=== PATIENT | female | born 1980 | race Caucasian/White ===

== ENCOUNTER → 2018-03-06 12:23 | Outpatient (CLI) | payer OTHER, BC, SELFPAY ==
--- NOTE | 2018-03-06 12:23 | DT_ITS ---
This patient was seen during an EMR downtime March 02, 2018 - March 09, 2018. This patient may have a combination of paper and electronic documentation or all paper documentation. All documentation is viewable within the e-chart portion of [employer] for each patient visit.
--- NOTE | 2018-03-06 12:36 | MRI_ITS ---
STUDY: MRI BRAIN WITH AND WITHOUT CONTRAST REASON FOR EXAM: Female, 38 years old. VISION DISTURBANCES, C/O SLANTED VISION, HEADACHES, DIZZINESS X 2 MONTHS, DULL ACHE AROUND EYES. TECHNIQUE: Standardized multiplanar fat and water weighted pulse sequences were obtained. 6 ml of Gadavist contrast material was administered intravenously for the contrast portion of the examination. COMPARISON: April 22, 2013 FINDINGS: Again noted is a mild dilatation of the ventricles which is stable in comparison with the prior examination. Normal white matter tracts of the supratentorial brain. Normal bilateral basal ganglia. Normal thalami. There is no extra-axial fluid accumulation. Normal flow voids within the major intracranial circulation suggesting patency by spin echo criteria. Normal venous enhancement. There is no enhancing intra-axial or extra-axial abnormality. Normal sella turcica, pituitary gland, infundibular stalk, optic chiasm and hypothalamus. Normal tectal plate and pineal gland. Normal midbrain, vianey and medulla. Normal cerebellum. Normal basal cisterns. Normal bilateral temporal bones. Normal bilateral internal auditory canals. Normal bilateral globes. Normal bilateral optic nerve sheath complexes and optic nerves. Normal bilateral intraconal and extraconal spaces. Normal bilateral extraocular muscles. Normal optic chiasm and post-chiasmatic tracts. Normal sella turcica, pituitary gland, infundibular stalk, and hypothalamus. Normal bilateral cavernous sinuses. Normal tectal plate and pineal gland. MRI/Brain W/WO Contrast IMPRESSION: Stable mild ventriculomegaly. Electronically Signed: Carina Estrada MD at 12:25 EDT Tel , Service support ,
== END ==
PROVIDERS: Family Provider Student in an Organized Health Care Education/Training Program; PCP Student in an Organized Health Care Education/Training Program; Visit Provider Nurse Practitioner Acute Care
DX: R51 Headache (principal); H53.9 Unspecified visual disturbance
CPT/HCPCS: 70553; A9585

== ENCOUNTER → 2019-08-19 13:42 | Outpatient (CLI) | payer OTHER, BC, SELFPAY ==
--- NOTE | 2019-08-19 13:45 | CT_ITS ---
STUDY: CT ABDOMEN WITHOUT CONTRAST REASON FOR EXAM: Female, 39 years old. RITA-DANLOS SYNDROME. Hypermobility. RADIATION DOSAGE (If Supplied By Facility): CTDIvol = ( 7.45 ) mGy, DLP = ( 225.13 ) mGycm TECHNIQUE: Transaxial images were obtained without intravenous contrast, and without oral contrast. Sagittal and coronal images were reconstructed. Individualized dose optimization techniques were used for this CT. COMPARISON: None. FINDINGS: The visualized lung bases are unremarkable. The visualized portions of the heart are within normal limits. Normal liver. Normal gallbladder and extrahepatic biliary system. Normal spleen. Normal pancreas. Normal bilateral adrenal glands. Normal right kidney. Normal left kidney. Normal visualized stomach. Normal small intestine. Normal colon. There is non-visualization of the appendix. Normal abdominal aorta. Normal inferior vena cava. Normal retroperitoneum. Normal abdominal wall. Normal osseous structures. CT/Abdomen without IV Contrast IMPRESSION: Normal unenhanced CT of the abdomen. Electronically Signed: Rayne Hoover MD at 5:40 EST , Service support ,
--- NOTE | 2019-08-19 13:46 | CT_ITS ---
STUDY: CT CHEST WITHOUT CONTRAST REASON FOR EXAM: Female, 39 years old. RITA-DANLOS SYNDROME. Chest pain. Hypermobility. RADIATION DOSAGE (If Supplied By Facility): CTDIvol = ( 6.57 ) mGy, DLP = ( 229.61 ) mGycm TECHNIQUE: Transaxial imaging was performed without the administration of intravenous contrast material. Multiplanar coronal and sagittal images were reformatted. Individualized dose optimization techniques were used for this CT. COMPARISON: None. FINDINGS: There are scattered mild changes throughout the lung parenchyma within the upper middle and lower lung xiong. Remainder of the lungs are otherwise clear. No nodule, mass or consolidation. There is no demonstrated pleural abnormality. Normal heart and pericardium. Normal mediastinum. Normal hilar regions. Normal unenhanced pulmonary arteries. Normal aorta arch and descending thoracic aorta. Normal osseous structures. There is no demonstrated abnormality of the visualized upper abdomen. CT/Chest without Contrast IMPRESSION: Scattered, mild bullous disease throughout the bilateral lung xiong are otherwise normal unenhanced CT Chest examination. Electronically Signed: Rayne Hoover MD at 5:43 EST , Service support ,
== END ==
PROVIDERS: Family Provider Student in an Organized Health Care Education/Training Program; PCP Student in an Organized Health Care Education/Training Program
DX: Q79.62 Hypermobile Ehlers-Danlos syndrome (principal); R07.9 Chest pain, unspecified
CPT/HCPCS: 71250; 74150

== ENCOUNTER → 2019-08-31 10:41 | Outpatient (CLI) | payer OTHER, BC, SELFPAY ==
--- NOTE | 2019-08-31 10:45 | STEWCON_ITS ---
Reason For Study: CHEST PAIN Stress Results Protocol: Amrit Protocol WITH DEFINITY Maximum Predicted HR: 182 bpm Target HR: 155 bpm % Maximum Predicted HR: 110 % DurationHeart Rate Stage (mm:ss) (bpm) BP Comment BASELINE 97 110/70 STAGE 1 3:00 157 132/70LEGS HEAVY FEELING, FATIGUED STAGE 2 1:25 200 / LEGS UNABLE TO KEEP UP WITH TREADMILL RECOVERY 102 122/804 CC DEFINITY Stress Duration: 4:25 mm:ss Maximum Stress HR: 200 bpm METS: 7 Baseline Echocardiogram Findings Stress Echo Wall motion Data Resting WM Intermediate WM Stress WM Resting Wall Motion Wall Motion Stress All segments Normal. All segments Hyperkinetic. Ejection Fraction 55 %. Ejection Fraction 70 %. Stress Results Heart rate response: Appropriate Blood pressure response to exercise: Normal resting blood pressure-appropriate response Arrhythmias: None Functional capacity: Decreased Stopped secondary to: Leg discomfort. EKG Data The baseline ECG displays normal sinus rhythm. Peak exercise ECG: No obvious ECG changes. Symptoms with Stress No complaint of chest discomfort during exercise or recovery. Interpretation Summary Negative (Adequate) stress echocardiogram Ordering Physician: SLIME CAN Referring Physician: SLIME CAN Performed By: Sheron Jones, ROSA, RVT
== END ==
PROVIDERS: Family Provider Student in an Organized Health Care Education/Training Program; PCP Student in an Organized Health Care Education/Training Program
DX: R07.9 Chest pain, unspecified (principal)
CPT/HCPCS: 93017; 93350; Q9957; A4216; C8928

== ENCOUNTER 2020-10-12 10:53 | Emergency (ER) | payer OTHER, SELFPAY ==
[2020-10-12] VITALS (11 sets, daily range): BP systolic 107–147; BP diastolic 67–93; PULSE 66–86; RESP 12–20; TEMP 36.7; O2SAT 96–100; BMI 23.9
--- NOTE | 2020-10-12 11:09 | EKG12_ITS ---
Test Reason : POSSIBLE STROKE Blood Pressure : / mmHG Vent. Rate : 077 BPM Atrial Rate : 077 BPM P-R Int : 136 ms QRS Dur : 090 ms QT Int : 366 ms P-R-T Axes : 074 071 042 degrees QTc Int : 414 ms Normal sinus rhythm Normal ECG Confirmed by BERNARDO RAE, REBECCA ([id number]), news video editor FLEX OCONNELL ([id number]) on 10/18/2020 6:16:11 AM Referred By: TOMASA Confirmed By:REBECCA CHANG MD
--- NOTE | 2020-10-12 11:09 | CT_ITS ---
STUDY: CT HEAD STROKE PROTOCOL W/O CONTRAST INJECTION REASON FOR EXAM: Female, 40 years old. Neuro deficit, acute stroke suspected, blurred and double vision right eye. RADIATION DOSAGE (If Supplied By Facility): CTDIvol = ( 60.81 ) mGy, DLP = ( 1067.08 ) mGycm TECHNIQUE: Transaxial CT imaging of the brain was performed without administration of intravenous contrast material. Individualized dose optimization techniques were used for this CT. COMPARISON: No relevant priors. FINDINGS: Normal soft tissue structures. Normal calvarium. There is disproportionate enlargement of the lateral and third ventricles, as compared to the extra-axial spaces. The findings suggest normal pressure hydrocephalus (NPH). Normal white matter tracts of the cerebral hemispheres. Normal basal ganglia and thalami. Normal brainstem. Normal cerebellum. There is no intracranial hemorrhage. There are no findings of an acute ischemic infarction. Normal visualized paranasal sinuses. CT/STROKE Brain/Head without Cont IMPRESSION: Disproportionate enlargement of the lateral and third ventricles as compared to the extra-axial spaces. N.B. : The above information has been verbally conveyed by Taiwo Huddleston to Dr Jenny MD, on 10/12/2020 11:26:55 (ET). Electronically Signed: Taiwo Huddleston, at 11:27 EST , Service support ,
--- NOTE | 2020-10-12 11:10 | CM.ED ---
SOCIAL WORK Reason for Consult: Stroke Alert SW responded to Stroke Alert. Patient in CT. No family present at this time. Per nursing, is aware. This worker to remain available for needs. Arelis John, TEA BAG PACKER, GUEST SERVICES AGENT
--- NOTE | 2020-10-12 11:12 | ED.DCSUM_ITS ---
History of Present Illness Chief Complaint: Neuro S/Sx Informant: Patient Quality and Location: Right Face Paresthesia, - - Vision changes right eye Current Severity: Mild Maximum Severity: Mild Narrative: Patient presents secondary to blurred vision out of her right eye. She states while coming to the emergency room she also noted double vision where items appear to be one on top of the other. Patient states she went to bed and felt well at 1030 last night. When she was at 5 AM this morning she noted her vision from her right eye was blurred. She thought she does need to put a new contact in which she did but the vision changes did not improve. Patient does also state that she has slight altered sensation over the right side of her face. She contacted her physician who advised her to come to the emergency room. She does report having a similar episode in March of last year which resolved spontaneously after 24 hours. She did not seek medical attention at that time. 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 Status: Chronic (3) Epilepsy Status: Chronic (4) Sjogren's disease Status: Chronic (5) POTS (postural orthostatic tachycardia syndrome) Status: Chronic Past Medical History - Allergies and Home Meds Allergies/Adverse Reactions: Allergies Iodinated Contrast Media [CONTRASTS] Allergy (Verified 10/12/20 10:54) Unknown amoxicillin [From Augmentin] Adverse Reaction (Verified 10/12/20 10:58) Nausea clavulanic acid [From Augmentin] Adverse Reaction (Verified 10/12/20 10:58) Nausea levetiracetam [From Keppra] Adverse Reaction (Verified 10/12/20 10:58) I COULDN'T STAY AWAKE Primary Care Physician: Bobo Rodriguez DO [Primary Care Provider] - Prior records reviewed: Yes Review of Systems General: Denies: Chills, Fever Eyes: Reports: Visual changes - right Cardiovascular: Denies: Chest pain Respiratory: Denies: Dyspnea, Cough Gastrointestinal: Denies: Abdominal pain, Vomiting, Diarrhea Musculoskeletal: Denies: Swelling, Extremity Pain Skin: Denies: Rash Neurological: Reports: Parasthesia. Denies: Weakness Hematologic: Denies: Easy bruising, Easy bleeding Allergy: Denies: Uticaria STROKE Vital Signs/Narrative: Vital Signs Temp Pulse Resp BP Pulse Ox 10/12/20 10:54 98.1 F 74 15 133/86 H 100 Inital Vital Signs reviewed: Yes General: Well nourished, Well developed Head: Normocephalic Eyes: Perrl, EOMI ENT: Moist mucous membranes Neck: Supple Cardiovascular: Regular rate, Regular rhythm Respiratory: No distress, CTA bilaterally Abdomen: Soft, Nontender Back: Nontender Extremities: Nontender Skin: Normal color, No rash Neurological: Alert, Oriented x3, Parasthesia - Right facial paresthesias Psychological: Normal affect Diagnostic/Tx/Re-eval Impressions Brain CT 10/12/20 11:09 IMPRESSION: Disproportionate enlargement of the lateral and third ventricles as compared to the extra-axial spaces. N.B. : The above information has been verbally conveyed by Taiwo Huddleston to Dr Jenny MD, on 10/12/2020 11:26:55 (ET). Electronically Signed: Taiwo Huddleston, at 11:27 EST , Service support , ADDENDUM: 10/12/20 1134 IMPRESSION: Disproportionate enlargement of the lateral and third ventricles as compared to the extra-axial spaces. N.B. : The above information has been verbally conveyed by Taiwo Huddleston to Dr Jenny MD, on 10/12/2020 11:26:55 (ET). Electronically Signed: Taiwo Huddleston, at 11:27 EST , Service support , Brain MRI 10/12/20 11:31 IMPRESSION: Suspect normal pressure hydrocephalus. Electronically Signed: Gómez Guzman MD at 16:15 EST Tel , Service support , Head MRA 10/12/20 11:32 IMPRESSION: Normal MRA of the head Electronically Signed: Gómez Guzman MD at 16:17 EST Tel , Service support , Neck MRA 10/12/20 11:32 IMPRESSION: Normal bilateral cervical carotid and vertebral arteries. Electronically Signed: Gómez Guzman MD at 16:17 EST Tel , Service support , Chest X-Ray 10/12/20 11:45 IMPRESSION: Normal x-ray examination of the chest. Electronically Signed: Taiwo Flaquito, at 12:18 EST , Service support , 10/12/20 11:09 STROKE Brain/Head without Cont [CT] Stat 10/12/20 11:31 MRI Brain [Brain without Contrast] [MRI] Stat 10/12/20 11:32 MRA Head ONLY without Contrast [MRI] Stat MRA Neck WITH and W/O Contrast [MRI] Stat 10/12/20 11:45 Chest 1 View [RAD] Stat Laboratory Results 10/12/20 10/12/20 10/12/20 11:00 11:00 11:00 WBC 8.6 RBC 4.53 Hgb 11.5 L Hct 36.9 L MCV 81.5 MCH 25.4 L MCHC 31.2 L RDW Std Deviation 41.4 RDW Coeff of Giovanna 14.2 Plt Count 356 MPV 10.9 Immature Gran % (Auto) 0.200 Neut % (Auto) 64.9 Lymph % (Auto) 27.6 [place] % (Auto) 6.4 Eos % (Auto) 0.7 Baso % (Auto) 0.2 Absolute Neuts (auto) 5.6 Absolute Lymphs (auto) 2.38 Nucleated RBC % 0 PT 12.8 INR 1.0 APTT 27.0 Sodium 140 Potassium 3.5 Chloride 107 Carbon Dioxide 27.0 Anion Gap 6 BUN 8 Creatinine 0.76 Estim Creat Clear Calc 82.21 Est GFR (MDRD) Af Amer 109 Est GFR (MDRD) Non-Af 90 BUN/Creatinine Ratio 10.6 Glucose 94 Calcium 9.0 Troponin I < 0.015 POC Glucose 10/12/20 11:22 WBC RBC Hgb Hct MCV MCH MCHC RDW Std Deviation RDW Coeff of Giovanna Plt Count MPV Immature Gran % (Auto) Neut % (Auto) Lymph % (Auto) [place] % (Auto) Eos % (Auto) Baso % (Auto) Absolute Neuts (auto) Absolute Lymphs (auto) Nucleated RBC % PT INR APTT Sodium Potassium Chloride Carbon Dioxide Anion Gap BUN Creatinine Estim Creat Clear Calc Est GFR (MDRD) Af Amer Est GFR (MDRD) Non-Af BUN/Creatinine Ratio Glucose Calcium Troponin I POC Glucose 80 Chest X-Ray - ED: 1 View, Read by ED Physician, - - Hyperinflation - EKG Initial EKG Interpretation: Sinus Rhythm - NS at 77 with no acute ischemia. - Medical Decision Making Stroke Team Activated: Yes Patient had both vision complaints in the right eye as well as paresthesias to the right face. In light of this stroke team was initiated. I spoke with the radiologist on the robot. She suggested obtaining MRI if at all possible to rule out stroke and if that was unremarkable patient should be seen by ophthalmology. Patient does have allergy to IV CT contrast which causes her throat to swell, but has tolerated MRI contrast in the past without difficulty. In light of this MRI brain as well as MRA brain and neck are obtained. The s tudies are all unremarkable. On repeat evaluation patient is resting comfortably. She still feels that her vision from the right eye is not back to baseline. She denies double vision at this time. I spoke with Dr. Amador, on- call for ophthalmology. Without pain or redness of the right eye, patient does not need to be seen emergently tonight. He will see her in the office tomorrow. If the patient gets any worsening symptoms overnight she is to call Dr. Amador and she voices understanding and agreement. ED Disposition - Plan for ED Patient: Disposition: Home or Assisted Living Diagnosis: Changes in vision Instructions: ED Blurred Vision Referrals: Sravan Amador MD [STAFF PHYSICIAN] - 1 Day
--- NOTE | 2020-10-12 11:14 | NURSING ---
1110 STROKE ALERT CALLED
[2020-10-12 11:26] LABS: Bedside Glucose 80 mg/dL (70-110)
--- NOTE | 2020-10-12 11:31 | MRI_ITS ---
STUDY: MRI BRAIN WITHOUT CONTRAST REASON FOR EXAM: Female, 40 years old. R eye double vision, blurred vision, right eye vision changes, paresthesias TECHNIQUE: Standardized multiplanar fat and water weighted pulse sequences were obtained. COMPARISON: CT earlier today, MRI 03/06/2018 FINDINGS: There is disproportionate ventricular enlargement with prominence of the anterior horns and temporal tips of the bilateral lateral ventricles. There is thinning with bowing of the corpus callosum. There is moderate enlargement of the third ventricle. The findings are suggestive of normal pressure hydrocephalus (NPH). Normal white matter tracts of the supratentorial brain. There is no evidence for recent intracranial ischemia or other cause of cytotoxic edema on diffusion weighted imaging (DWI). Normal T2* images of the brain without demonstrated susceptibility artifact. There is no demonstrated hemosiderin stain. Normal bilateral basal ganglia. Normal thalami. There is no extra-axial fluid accumulation. Normal flow voids within the major intracranial circulation suggesting patency by spin echo criteria. Normal sella turcica, pituitary gland, infundibular stalk, optic chiasm and hypothalamus. Normal tectal plate and pineal gland. Normal midbrain, vianey and medulla. Normal cerebellum. Normal basal cisterns. Normal bilateral temporal bones. Normal bilateral internal auditory canals. No demonstrated orbital abnormality, within the constraints of a routine brain study. Normal visualized paranasal sinuses. Normal calvarium and skull base. Normal visualized soft tissue structures. Normal visualized upper cervical spine. MRI/Brain without Contrast IMPRESSION: Suspect normal pressure hydrocephalus. Electronically Signed: Gómez Guzman MD at 16:15 EST Tel , Service support ,
--- NOTE | 2020-10-12 11:32 | MRI_ITS ---
STUDY: MRA NECK WITH AND WITHOUT CONTRAST REASON FOR EXAM: Female, 40 years old. R eye double vision, blurred vision, right eye vision changes, paresthesias TECHNIQUE: 3-D ltde-lg-bauxdo (TOF) imaging was performed in an 1.5 T MRI scanner. 12CC IV DOTAREM was administered for the contrast enhanced images. COMPARISON: None. FINDINGS: RIGHT CAROTID ARTERIES: Normal right common carotid artery (CCA). Normal right common carotid bulb. Normal origin of the right internal carotid (ICA) artery without a hemodynamically significant stenosis. Normal visualized cervical portion of the right internal carotid artery. Normal origin of the right external carotid artery (ECA). LEFT CAROTID ARTERIES: Normal left common carotid artery (CCA). Normal left common carotid bulb. Normal origin of the left internal carotid (ICA) artery without a hemodynamically significant stenosis. Normal visualized cervical portion of the left internal carotid artery. Normal origin of the left external carotid artery (ECA). VERTEBRAL ARTERIES: Normal antegrade flow within the bilateral vertebral artery without a hemodynamically significant stenosis. MRI/MRA Neck WITH and W/O Contrast IMPRESSION: Normal bilateral cervical carotid and vertebral arteries. Electronically Signed: Gómez Guzman MD at 16:17 EST Tel , Service support ,
--- NOTE | 2020-10-12 11:32 | MRI_ITS ---
STUDY: MRA OF THE HEAD WITHOUT CONTRAST REASON FOR EXAM: Female, 40 years old. right eye vision changes, paresthesias TECHNIQUE: 3-D nsjx-ez-ssmafo (TOF) imaging was performed with MIPs. The study was performed unenhanced. COMPARISON: None. FINDINGS: Normal bilateral petrous carotid arteries. Normal right cavernous carotid artery with a normal supraclinoid bifurcation. Normal left cavernous carotid artery with a normal supraclinoid bifurcation. Normal right A1 segments of the anterior cerebral artery. Normal left A1 segments of the anterior cerebral artery. Normal intact anterior communicating artery (ACOM). Normal bilateral A2 segments of the anterior cerebral arteries. Normal right M1 and M2 segments of the middle cerebral arteries, with a normal M1 bifurcation. Normal left M1 and M2 segments of the middle cerebral arteries, with a normal M1 bifurcation. Normal right posterior communicating artery (PCOM). Normal left posterior communicating artery (PCOM). Normal bilateral vertebral arteries. Normal basilar artery with a normal basilar bifurcation. The visualized bilateral superior cerebellar (SCA) arteries are normal. Normal bilateral P1, P2 and visualized P3 segments of the posterior cerebral arteries. There is no demonstrated aneurysm of the [place]. There is no major vessel occlusion or hemodynamically significant stenosis. There is no demonstrated abnormality of the visualized brain. MRI/MRA Head ONLY without Contrast IMPRESSION: Normal MRA of the head Electronically Signed: Gómez Guzman MD at 16:17 EST Tel , Service support ,
[2020-10-12 11:39] LABS: Absolute Lymphocyte Count 2.38 X10^3/uL (0.83-4.51); Absolute Neutrophil Count 5.6 X10^3/uL (2.0-7.7); Basophil# 0.02 X10^3/uL; Basophil% 0.2 % (0-1); Eosinophil# 0.06 X10^3/uL; Eosinophils% 0.7 % (0-5); Hematocrit 36.9 % (37-47); Hemoglobin 11.5 g/dL (12.0-15.0); Lymphocyte # 2.38 X10^3/ul (4.0); Lymphocyte % 27.6 % (19-41); Mean Corp Hgb Conc 31.2 g/dL (32-36); Mean Corpuscular Hgb 25.4 pg (27.0-32.0); Mean Corpuscular Volume 81.5 fL (81-99); Mean Platelet Vol. 10.9 fl (6.2-12.0); Monocyte# 0.55 X10^3/uL; Monocyte% 6.4 % (0-10); NRBC Flagged by Analyzer 0 % (0-5); Neutrophil # 5.59 X10^3/uL (2.7-7.7); Neutrophil % 64.9 % (47-70); Platelet Count 356 K/mm3 (150-450); RBC Distribution Width CV 14.2 % (11.6-14.6); RBC Distribution Width SD 41.4 fl (35.1-43.9); Red Blood Count 4.53 M/mm3 (4.2-5.4); White Blood Count 8.6 K/mm3 (4.4-11.0)
--- NOTE | 2020-10-12 11:45 | RAD_ITS ---
STUDY: X-RAY CHEST REASON FOR EXAM: Female, 40 years old. SUSPECTED STROKE, BLURRED AND DOUBLED VISION IN RIGHT EYE. TECHNIQUE: Single AP portable view of the chest. COMPARISON: Comparison is made with prior study 05/18/2014. FINDINGS: EKG electrodes are seen. Hyperinflation. The lungs are clear. There is no demonstrated pleural abnormality. Normal size heart. Normal mediastinum and gricelda. Normal visualized pulmonary arteries. Normal visualized aortic arch and descending thoracic aorta. Normal visualized thoracic spine. Normal visualized ribs, clavicles, and shoulders. There is no demonstrated abnormality of the visualized soft tissue structures of the upper abdomen. RAD/Chest 1 View IMPRESSION: Normal x-ray examination of the chest. Electronically Signed: Taiwo Huddleston, at 12:18 EST , Service support ,
[2020-10-12 11:48] LABS: Prothrombin Time (Protime)PT. 12.8 SECONDS (11.7-14.9)
[2020-10-12 11:53] LABS: Anion Gap 6 (5-15); BUN 8 mg/dL (7-18); BUN/Creat Ratio 10.6 RATIO (10-20); Chloride 107 mmol/L (98-107); Creatinine, Serum 0.76 mg/dL (0.55-1.02); EST Glomerular Filtration Rate 90 mL/min (>60); Est Glom Filt Rate - Afr Amer 109 mL/min (>60); Estimated Creatinine Clearance 82.21 ml/min; Glucose 94 mg/dL (74-106); Potassium 3.5 mmol/L (3.5-5.1); Sodium Level 140 mmol/L (136-145)
== END 2020-10-12 17:05 | disposition home or self-care (01) ==
PROVIDERS: Emergency Provider Emergency Medicine; PCP Student in an Organized Health Care Education/Training Program
DX: R29.818 Other symptoms and signs involving the nervous system (principal); G40.909 Epilepsy, unspecified, not intractable, without status epilepticus
CPT/HCPCS: 70450; 70544; 70549; 70551; 71045; 80048; 82962; 84484; 85025; 85610; 85730; 93005; 99284; A9575; A4216

== ENCOUNTER 2021-06-06 07:07 | Emergency (ER) | payer OTHER, SELFPAY ==
[2021-06-06 07:07] VITALS: BP 94/70; PULSE 100; RESP 16; TEMP 36.6; O2SAT 99; BMI 22.8
[2021-06-06 07:10] VITALS: BP 94/70; PULSE 100; RESP 16; TEMP 36.6; O2SAT 99
--- NOTE | 2021-06-06 07:25 | EX.ED.VIS.UR ---
HPI HPI - URI History of Present Illness Chief Complaint: Weakness Informant: patient Onset/Context/Timing Onset: Days Context: Gradual Onset Timing: Continuous Current Severity: Mild Maximum Severity: Mild Associated Symptoms Associated Symptoms: Positive for Myalgias, Nausea, Vomiting, Diarrhea and Nonproductive cough Narrative Narrative: 41-year-old female past medical history of seizure disorder, hydrocephalus and POTS. Patient thinks he may have coronavirus was tested there and it is not the results back yet. On Friday she started with congestion and nonproductive cough. Body aches. Subjective fever and chills. In the last 2 to 3 days has developed nausea, vomiting and diarrhea. Has had 4 episodes of diarrhea last 24 hours. Nausea and vomiting x2. No hematemesis no melena. No dysuria. No abdominal pain. Prior similar symptoms: No Recent Illness/Hospitalization: No ROS ROS ED ROS Narrative Nausea, vomiting and diarrhea. Myalgias. Cough. Subjective fever and chills. Review of Systems ROS Unobtainable: Denies due to encephalopathy Constitutional Constitutional ED: Reports chills, fever(s) and subjective Eyes Eyes: Denies change in vision ENT ENT ED: Denies ear pain or sore throat Cardiovascular Cardiovascular: Denies chest pain Respiratory/Chest Respiratory/Chest: Reports cough; Denies dyspnea Gastrointestinal Gastrointestinal: Reports diarrhea, nausea and vomiting; Denies abdominal pain Genitourinary Genitourinary ED: Denies dysuria or hematuria Musculoskeletal Musculoskeletal: Reports arthralgias and myalgias Integumentary Denies rash Neurologic Neurologic: Denies headache(s) Psychiatric Psychiatric: Denies depression Endocrine Endocrinology: Denies polyuria Hematologic/Lymphatic Hematologic/Lymphatic: Denies easy bruising Allergic/Immunologic Allergic/Immunologic ED: Denies urticaria [facility] Medical History Normal pressure hydrocephalus (10/12/20) Home Medications atenolol 25 mg PO DAILY 10/12/20 [History Last Taken Unknown] clonazepam 2 mg PO QHS 10/12/20 [History Last Taken Unknown] lamotrigine 50 mg PO BID 10/12/20 [History Last Taken Unknown] dexamethasone [Decadron] 6 mg PO DAILY 7 Days #7 tab 06/06/21 [Rx Last Taken Unknown] ondansetron 4 mg PO TID PRN 4 Days tab 06/06/21 [Rx Last Taken Unknown] Allergy/AdvReac Type Severity Reaction Status Date / Time acetazolamide Allergy unknown Verified 06/06/21 07:10 Iodinated Contrast Media Allergy Unknown Verified 06/06/21 07:10 [CONTRASTS] amoxicillin [From Augmentin] AdvReac Nausea Verified 06/06/21 07:10 carbamazepine [From Tegretol] AdvReac unknown Verified 06/06/21 07:10 clavulanic acid AdvReac Nausea Verified 06/06/21 07:10 [From Augmentin] levetiracetam [From Keppra] AdvReac I Verified 06/06/21 07:10 COULDN'T STAY AWAKE Family History Mother Cancer cervical Father Hypertension Sister Cancer cervical Grandmother Cancer maternal ovarian cancer Social History Smoking Status: Former smoker EXAM Physical Exam Narrative Exam Narrative: Middle-aged female clinically looks like she does not feel well. Does not look septic. Her initial blood pressure is low at 94/70. Heart rate 100. Pulse ox 90% on room air no signs hypoxia. H EENT exam dry mucous memories. Neck nontender no lymphadenopathy. Lungs clear to auscultation bilaterally. Heart regular rhythm no murmur. Rate about 100. Abdomen soft nontender normal bowel sounds no peritoneal signs. Moving all 4 extremities. No edema. Skin unremarkable no rashes back nontender. Neurologically awake and alert with no focal motor deficits. Const Vital Signs: 06/06/21 07:07 06/06/21 07:10 06/06/21 07:58 Temperature 98 F 98 F Temperature Source Temporal Temporal Pulse Rate 100 100 Respiratory Rate 16 16 Respiratory Effort Normal Non-Labored Respiratory Pattern Normal Blood Pressure 94/70 94/70 Blood Pressure Mean 78 78 Pulse Ox 99 99 Oxygen Delivery Method Room Air Room Air Positive well nourished and well developed; Negative for obese, cachectic or contractures General Appearance ED: well developed and NAD; Negative for cachectic, contractures, cyanotic, diaphoretic or pallor Nutritional Appearance: Negative for cachectic or obese HEENT Reports dry mucous membranes normocephalic and atraumatic External Ear: external ears normal Mouth ED: Yes dry mucous membranes Mouth: dry mucous membranes Eyes PERRL and EOMs intact bilaterally Neck no lymphadenopathy, supple, no meningeal signs and no JVD General: Negative for anterior neck swelling Resp normal respiratory effort and clear to auscultation bilaterally Auscultation: Negative for rales, rhonchi or wheezes Cardio S1 normal heart sound, S2 normal heart sound and no murmurs Rate: regular rate Rhythm: regular rhythm GI non-tender, non-distended and no masses Auscultation: normoactive bowel sounds; Negative for hyperactive bowel sounds or hypoactive bowel sounds Palpation: soft; Negative for tender or guarding Back/Spine no CVA tenderness and normal ROM General Back: Negative for CVA tenderness Cervical Spine: Negative for cervical spine tenderness Extremity normal to inspection and full ROM General Extremety ED: Negative for cyanosis General Extremity: Negative for cyanosis Neuro oriented x3 and CN's II-XII intact bilaterally Sensorium / Orientation: alert, oriented to person, oriented to place, oriented to time and stuporous; Negative for orientation impaired or lethargic Motor Exam: strength 5/5 throughout Psych mental status grossly normal Skin General Skin Exam: Negative for jaundice or pallor Lesions: no lesions Rashes: no rashes MDM MDM MDM Narrative Medical decision making narrative: 41-year-old female suspect coronavirus. Will be treated with IV fluids, Zofran and Toradol for body aches. Screening labs and chest x-ray to be obtained. Clinically she is hypotensive and will be treated with fluids for dehydration. Repeat exam patient doing well at 9:50 AM and will be discharged home. We went over all of her test results. Prescription for Zofran as needed for nausea. Lab Data Attestation: I reviewed the patient's lab results. Lab results narrative: CBC White count of 3. Hemoglobin 11.5. Electrolytes normal gap 4 creatinine 0.7 glucose 96. Portable single view chest x-ray interpreted both by myself and the radiologist shows no acute abnormality. Normal cardiac silhouette. No infiltrate. Labs: Laboratory Results - last 24 hr 06/06/21 06/06/21 07:50 07:50 WBC 3.1 L RBC 4.61 Hgb 11.5 L Hct 36.7 L MCV 79.6 L MCH 24.9 L MCHC 31.3 L RDW Std Deviation 41.1 RDW Coeff of Giovanna 14.3 Plt Count 159 MPV 10.6 Immature Gran % (Auto) 0.700 Neut % (Auto) 67.2 Lymph % (Auto) 27.2 [place] % (Auto) 4.9 Eos % (Auto) 0.0 Baso % (Auto) 0.0 Absolute Neuts (auto) 2.1 Absolute Lymphs (auto) 0.83 Nucleated RBC % 0 Sodium 138 Potassium 3.7 Chloride 106 Carbon Dioxide 28.0 Anion Gap 4 L BUN 8 Creatinine 0.74 Estim Creat Clear Calc 79.93 Est GFR (MDRD) Af Amer 111 Est GFR (MDRD) Non-Af 92 BUN/Creatinine Ratio 10.8 Glucose 96 Calcium 8.2 L Radiography Diagnostic Testing: Radiology Impression Chest X-Ray 06/06/21 08:10 IMPRESSION: Hyperinflation. The lungs are clear. Electronically Signed: Taiwo Huddleston MD at 8:28 EDT , Service support , Chest x-ray portable 1 view interpreted both by myself and radiologist shows no acute abnormality. Normal cardiac silhouette. No infiltrates. Discharge Plan Triage Chief Complaint: Weakness ED Provider: Eric Hardin Dx/Rx/DC Orders Clinical Impression: COVID-19 Instructions: Human Coronaviruses Prescriptions: New ondansetron 4 mg tablet,disintegrating 4 mg PO TID PRN (Reason: nausea and vomiting) 4 Days RF: 0 dexamethasone [Decadron] 6 mg tablet 6 mg PO DAILY 7 Days Qty: 7 RF: 0 No Action lamotrigine 100 MG tablet 50 mg PO BID RF: 0 atenolol 25 MG tablet 25 mg PO DAILY RF: 0 clonazepam 2 MG tablet 2 mg PO QHS RF: 0 Primary Care Provider: Bobo Rodriguez Referrals: Bobo Rodriguez DO [Primary Care Provider] - 1 Week if not improving Activity Restrictions/Additional Instructions: Plenty of fluids and rest. Tylenol and Motrin for fever. Zofran as needed for nausea you may swallowed or let dissolve underneath your tongue. If you start having wheezing, cough or shortness of breath start using the Decadron which is a steroid once a day. Follow-up with your doctor if you are not improving. Return to emergency department if you get a lot worse. Quarantine through next Friday. Disposition Disposition: Home, Self Care
[2021-06-06] MEDS: Ketorolac 30 MG/ML Syringe IV (07:50)
[2021-06-06] MEDS: 0.9% Normal Saline 1,000 ML 1000 ML IV (07:51)
[2021-06-06] MEDS: Ondansetron 4 MG/2 ML Vial IV (07:51)
--- NOTE | 2021-06-06 08:10 | RAD_ITS ---
STUDY: X-RAY CHEST REASON FOR EXAM: Female, 41 years old. Cough TECHNIQUE: Single AP portable view of the chest. COMPARISON: Comparison is made with prior study dated 10/12/2020. FINDINGS: Hyperinflation. The lungs are clear. There is no demonstrated pleural abnormality. Normal size heart. Normal mediastinum and gricelda. Normal visualized pulmonary arteries. Normal visualized aortic arch and descending thoracic aorta. Normal visualized thoracic spine. Normal visualized ribs, clavicles, and shoulders. There is no demonstrated abnormality of the visualized soft tissue structures of the upper abdomen. RAD/Chest 1 View (Portable) IMPRESSION: Hyperinflation. The lungs are clear. Electronically Signed: Taiwo Huddleston MD at 8:28 EDT , Service support ,
[2021-06-06 08:12] LABS: Absolute Lymphocyte Count 0.83 X10^3/uL (0.83-4.51); Absolute Neutrophil Count 2.1 X10^3/uL (2.0-7.7); Hematocrit 36.7 % (37-47); Hemoglobin 11.5 g/dL (12.0-15.0); Lymphocyte # 0.83 X10^3/ul (0.83-4.51); Lymphocyte % 27.2 % (19-41); Mean Corp Hgb Conc 31.3 g/dL (32-36); Mean Corpuscular Hgb 24.9 pg (27.0-32.0); Mean Corpuscular Volume 79.6 fL (81-99); Mean Platelet Vol. 10.6 fl (6.2-12.0); Monocyte# 0.15 X10^3/uL; Monocyte% 4.9 % (0-10); NRBC Flagged by Analyzer 0 % (0-5); Neutrophil # 2.05 X10^3/uL (2.7-7.7); Neutrophil % 67.2 % (47-70); Platelet Count 159 K/mm3 (150-450); RBC Distribution Width CV 14.3 % (11.6-14.6); RBC Distribution Width SD 41.1 fl (35.1-43.9); Red Blood Count 4.61 M/mm3 (4.2-5.4); White Blood Count 3.1 K/mm3 (4.4-11.0)
[2021-06-06 08:21] LABS: Anion Gap 4 (5-15); BUN 8 mg/dL (7-18); BUN/Creat Ratio 10.8 RATIO (10-20); Calcium,Total 8.2 mg/dL (8.5-10.1); Chloride 106 mmol/L (98-107); Creatinine, Serum 0.74 mg/dL (0.55-1.02); EST Glomerular Filtration Rate 92 mL/min (>60); Est Glom Filt Rate - Afr Amer 111 mL/min (>60); Estimated Creatinine Clearance 79.93 ml/min; Glucose 96 mg/dL (74-106); Potassium 3.7 mmol/L (3.5-5.1); Sodium Level 138 mmol/L (136-145)
[2021-06-06 10:40] VITALS: BP 114/80; PULSE 73; RESP 16; TEMP 37.1; O2SAT 97
== END 2021-06-06 10:41 | disposition home or self-care (01) ==
PROVIDERS: Emergency Provider Emergency Medicine; PCP Student in an Organized Health Care Education/Training Program
DX: U07.1 COVID-19 (principal); G40.909 Epilepsy, unspecified, not intractable, without status epilepticus; Z87.891 Personal history of nicotine dependence; Z79.899 Other long term (current) drug therapy
CPT/HCPCS: 71045; 80048; 85025; 87426; 96361; 96374; 96375; 99283; J7030; A4216; J2405

== ENCOUNTER → 2022-09-05 | Outpatient (CLI) | payer OTHER, BC, SELFPAY ==
[2022-09-05 09:31] LABS: Absolute Lymphocyte Count 2.56 X10^3/uL (0.83-4.51); Absolute Neutrophil Count 2.7 X10^3/uL (2.0-7.7); Basophil# 0.02 X10^3/uL; Basophil% 0.3 % (0-1); Eosinophil# 0.02 X10^3/uL; Eosinophils% 0.3 % (0-5); Hematocrit 37.5 % (37-47); Hemoglobin 11.6 g/dL (12.0-15.0); Lymphocyte # 2.56 X10^3/ul (0.83-4.51); Lymphocyte % 44.3 % (19-41); Mean Corp Hgb Conc 30.9 g/dL (32-36); Mean Corpuscular Hgb 25.7 pg (27.0-32.0); Mean Corpuscular Volume 83.1 fL (81-99); Mean Platelet Vol. 10.8 fl (6.2-12.0); Monocyte# 0.45 X10^3/uL; Monocyte% 7.8 % (0-10); NRBC Flagged by Analyzer 0 % (0-5); Neutrophil # 2.72 X10^3/uL (2.7-7.7); Neutrophil % 47.1 % (47-70); Platelet Count 366 K/mm3 (150-450); RBC Distribution Width SD 44.8 fl (35.1-43.9); Red Blood Count 4.51 M/mm3 (4.2-5.4); White Blood Count 5.8 K/mm3 (4.4-11.0)
[2022-09-05 09:48] LABS: Vitamin D,25 Hydroxy 17.8 ng/mL
[2022-09-05 09:49] LABS: BNP,B-Type NATRIURETIC PEPTIDE 54.4 pg/mL (0-100)
[2022-09-05 09:54] LABS: Anion Gap 7 (5-15); BUN 7 mg/dL (7-18); BUN/Creat Ratio 10.8 RATIO (10-20); Calcium,Total 8.9 mg/dL (8.5-10.1); Chloride 104 mmol/L (98-107); Creatinine, Serum 0.65 mg/dL (0.55-1.02); EST Glomerular Filtration Rate 107 mL/min (>60); Est Glom Filt Rate - Afr Amer 129 mL/min (>60); Glucose 82 mg/dL (74-106); Potassium 3.6 mmol/L (3.5-5.1); Sodium Level 139 mmol/L (136-145); Thyroid Stim Hormone (TSH) 2.04 uIU/mL (0.358-3.74)
== END | disposition home or self-care (01) ==
LOC: LAB 08:46
PROVIDERS: PCP Student in an Organized Health Care Education/Training Program; Referring Provider Nurse Practitioner Gerontology; Visit Provider Nurse Practitioner Gerontology
DX: R06.09 Other forms of dyspnea (principal); R53.83 Other fatigue
CPT/HCPCS: 36415; 80048; 82306; 83880; 84443; 85025

== ENCOUNTER → 2022-09-12 | Outpatient (CLI) | payer OTHER, BC, SELFPAY ==
--- NOTE | 2022-09-12 08:51 | ECHOD_ITS ---
Reason For Study: DYSPNEA/SOB Procedure This was a 2D Doppler, Color Flow transthoracic echocardiogram. Exam performed in department. Left Ventricle Normal LV size. Left ventricular systolic function is normal. The estimated ejection fraction is 55 %. No regional wall motion abnormalities noted. Right Ventricle Normal RV size. Normal systolic function. Atria Normal left atrium. Normal right atrium. Patent foramen ovale. Mitral Valve Normal mitral valve. Tricuspid Valve Normal tricuspid valve. Aortic Valve Normal aortic valve. Trisinus/trileaflet aortic valve. Pulmonic Valve Normal pulmonic valve. Great Vessels Normal aortic root. The pulmonary artery is normal size. Normal inferior vena cava. Pericardium/Pleural No pericardial effusion. Medication 22 gauge I.V. with prn adaptor inserted into right arm. Performed a rapid injection of agitated mix of 9 cc saline and 1cc air to assess for atrial septal defect. MMode/2D Measurements & Calculations LVIDd: 4.4 cm IVSd: 0.68 cm Ao root diam: 2.9 cm LVIDs: 3.0 cm LVPWd: 0.69 cm RVDd: 2.7 cm FS: 31.9 % LAV(MOD-bp): 28.6 ml LVAd ap4: 23.0 cm2 SV(MOD-sp4): 39.6 ml LAV(MOD-bp) Indexed: 17.5 ml/m2 LVLd ap4: 6.8 cm LAV(MOD-sp2): 27.6 ml EDV(MOD-sp4): 64.1 ml LAV(MOD-sp4): 28.7 ml EDV(sp4-el): 66.3 ml LVAs ap4: 12.7 cm2 LVLs ap4: 5.6 cm ESV(MOD-sp4): 24.5 ml ESV(sp4-el): 24.3 ml EF(MOD-sp4): 61.8 % EF(sp4-el): 63.4 % SV(sp4-el): 42.0 ml LA A4 area: 13.2 cm2 LA dimension(2D): 2.7 cm RA A4 area: 12.1 cm2 Time Measurements MV dec time: 0.25 sec Doppler Measurements & Calculations MV E max derik: 85.2 cm/sec Lat Peak E' Derik: 21.2 cm/sec Med Peak E' Derik: 12.7 cm/sec MV A max derik: 58.7 cm/sec E/E' lat: 4.0 E/E' med: 6.7 MV E/A: 1.5 Ao V2 max: 127.5 cm/sec LV V1 max: 110.4 cm/sec PA V2 max: 93.1 cm/sec Ao max P.5 mmHg LV V1 max P.9 mmHg TR max derik: 211.3 cm/sec TR max P.0 mmHg ECHO/Echo Complete Interpretation Summary Normal LV size. Left ventricular systolic function is normal. The estimated ejection fraction is 55 %. Patent foramen ovale. Structurally normal valves. Ordering Physician: Holley Gorman Referring Physician: JORGITO ESCOBAR Performed By: Cheryle Park RDCS
== END | disposition home or self-care (01) ==
LOC: CVS 08:50
PROVIDERS: PCP Student in an Organized Health Care Education/Training Program; Referring Provider Nurse Practitioner Gerontology; Visit Provider Nurse Practitioner Gerontology
DX: R06.09 Other forms of dyspnea (principal); R06.02 Shortness of breath; I49.8 Other specified cardiac arrhythmias; Q79.60 Ehlers-Danlos syndrome, unspecified
CPT/HCPCS: 93306; A4216

== ENCOUNTER → 2023-12-12 | Outpatient (CLI) | payer OTHER, BC, SELFPAY ==
--- OUTSIDE RECORDS SUMMARY | 2023-12-12 20:05 | XMS RPT_ITS | CCD ---
Author Name Unknown Address [id number] [place] [address] Organization [facility] Care Team Providers Care Desktop Support Specialist Name Role Phone Shazia Mann Unavailable Unavailable Cinthia Ortega Unavailable Unavailable Bobo Rodriguez Unavailable Unavailable Kendy Booker Unavailable Unavailable SELF, SELF Referring Unavailable Bobo Rodriguez DO Primary Care Provider Nicola Novak MD, William J Unavailable Bobo Rodriguez DO Primary Care Provider Nicola Novak MD, William J Unavailable Bobo Rodriguez DO Primary Care Provider Nicola Novak MD, William J Unavailable EMI WARNER Referring Unavailable BOBO RODRIGUEZ Primary Care Unavailable MARYANNE LEDEZMA Admitting Unavailable MARYANNE LEDEZMA Attending Unavailable VIJAY PETERSEN JR Attending Unavailable BOBO RODRIGUEZ Primary Care Unavailable VIJAY PETERSEN JR Referring Unavailable BOBO RODRIGUEZ Primary Care Unavailable MUSHTAQ REHMAN A Referring Unavailable BOBO RODRIGUEZ Primary Care Unavailable BERENICE SHELL Referring Unavailable BOBO RODRIGUEZ Primary Care Unavailable NIDIA, SANDI Referring Unavailable BOBO RODRIGUEZ Primary Care Unavailable ALEXANDER, SANDI Referring Unavailable BOBO RODRIGUEZ Primary Care Unavailable MASCI, MUSHTAQ A Referring Unavailable MICHAEL BOBO L Primary Care Unavailable KRISTYN REHMAN Referring Unavailable BOBO RODRIGUEZ Primary Care Unavailable MASCI, MUSHTAQ A Referring Unavailable ALE JACOBSON Attending Unavailable RODRIGUEZ, BOBO L Primary Care Unavailable RODRIGUEZ, BOBO L Primary Care Unavailable MASCI, MUSHTAQ A Referring Unavailable RODRIGUEZ, BOBO L Primary Care Unavailable RODRIGUEZ, BOBO L Primary Care Unavailable MASCI, MUSHTAQ A Referring Unavailable RODRIGUEZ, BOBO L Primary Care Unavailable MASCI, MUSHTAQ A Attending Unavailable MASCI, MUSHTAQ A Referring Unavailable RODRIGUEZ, BOBO L Primary Care Unavailable Mei Warner Attending Unavailable MASCI, MUSHTAQ A Referring Unavailable RODRIGUEZ, BOBO L Primary Care Unavailable AARONI, MUSHTAQ A Referring Unavailable RODRIGUEZ, BOBO L Primary Care Unavailable RODRIGUEZ, BOBO L Primary Care Unavailable MASCI, MUSHTAQ A Referring Unavailable VIJAY PETERSEN JR Referring Unavailable VIJAY PETERSEN JR Attending Unavailable RODRIGUEZ, BOBO L Primary Care Unavailable Allergies Allergy Classification Reported Allergen(s) Allergy Type Date of Onset Reaction(s) Facility (1 source) Iodine Drug Allergy [facility] Work Phone: (1 source) drug allergy [facility] Work Phone: (20 sources) acetaZOLAMIDE; Translations: [ACETAZOLAMIDE] Drug Allergy 0 [facility] Work Phone: (20 sources) Amoxicillin / Clavulanate; Translations: [AMOXICILLIN-POT CLAVULANATE] Drug Allergy 2 Vomiting [facility] Work Phone: (20 sources) Contrast media; Translations: [CONTRAST DYE] Propensity to adverse reactions 6 Hives [facility] Work Phone: (20 sources) Furosemide; Translations: [FUROSEMIDE] Drug Allergy 0 [facility] Work Phone: (20 sources) levETIRAcetam; Translations: [LEVETIRACETAM] Drug Allergy 1 Mental Status Change [facility] (20 sources) Nadolol; Translations: [NADOLOL] Drug Allergy 9 Intolerance [facility] (20 sources) Carbamazepine Analogues; Translations: [CARBAMAZEPINE ANALOGUES] Drug Intolerance 1 Intolerance [facility] Medications Completed/Discontinued Medications Medication Drug Class(es) Dates Sig (Normalized) Sig (Original) Acetaminophen / diphenhydrAMINE (20 sources) Histamine-1 Receptor Antagonist take 1 tablet by mouth once daily at bedtime acetaminophen/diph enhydramine (TYLENOL PM EXTRA STRENGTH ORAL) Take 1 tablet by mouth daily at bedtime. 0 Active Problems Active Problems Problem Classification Problem Date Documented Date Episodic/Chronic Adjustment disorders (1 source) Family tension; Translations: [Reaction to severe stress, unspecified] Chronic Allergic reactions (2 sources) Propensity to adverse reactions to food; Translations: [Other adverse food reactions, not elsewhere classified, initial encounter] Episodic Blindness and vision defects (2 sources) Eye / vision finding; Translations: [Unspecified visual disturbance] Onset: 12-02-19 24 12-02-2023 Episodic Cardiac dysrhythmias (20 sources) Postural orthostatic tachycardia syndrome ; Translations: [Other specified cardiac arrhythmias] Onset: 10-22-19 22 10-22-2021 Chronic E Codes: Adverse effects of medical drugs (1 source) Allergic reaction to substance; Translations: [Adverse effect of diagnostic agents, initial encounter] Episodic Epilepsy; convulsions (20 sources) Epilepsy; 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] Onset: 12-28-19 13 02-21-2021 Chronic Epilepsy; convulsions (1 source) Partial seizure; Translations: [Unspecified convulsions] Episodic Esophageal disorders (11 sources) Gastro-esophageal reflux disease with esophagitis; Translations: [Gastroesophageal reflux disease with esophagitis without hemorrhage] Onset: 04-02-20 23 04-02-2023 Chronic Esophageal disorders (1 source) Esophageal disorders; Translations: [Gastroesophageal reflux disease with esophagitis without hemorrhage] Onset: 04-02-20 Gastritis and duodenitis (1 source) Helicobacter pylori-associated gastritis; Translations: [Gastritis, unspecified, without bleeding] 04-28-2023 Episodic Headache; including migraine (2 sources) Chronic headache disorder; Translations: [Headache] 12-02-2023 Episodic Headache; including migraine (1 source) Headache; including migraine; Translations: [Intractable headache, unspecified chronicity pattern, unspecified headache type] Onset: 12-02-19 Immunizations and screening for infectious disease (1 source) Patient encounter status; Translations: [Encounter for immunization] Episodic Mood disorders (20 sources) Depressive disorder; Translations: [Other specified depressive episodes] Onset: 08-25-20 07 07-09-2010 Chronic Noninfectious gastroenteritis (2 sources) Chronic diarrhea; Translations: [Noninfective gastroenteritis and colitis, unspecified] Episodic Nutritional deficiencies (20 sources) Vitamin D deficiency; Translations: [Vitamin D deficiency, unspecified] Onset: 01-30-20 12 01-30-2012 Chronic Other circulatory disease (1 source) H/O: hypertension; Translations: [History of hypertension] Episodic Other congenital anomalies (1 source) Carmen-Danlos syndrome; 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, 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 Other congenital anomalies (1 source) Carmen-Danlos syndrome; 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, unspecified] Chronic Other connective tissue disease (1 source) Neurological symptom; Translations: [Other symptoms and signs involving the nervous system] 12-02-2023 Episodic Other connective tissue disease (1 source) Other symptoms and signs involving the nervous system; Translations: [Other symptoms and signs involving the nervous system] Onset: 12-02-19 Episodic Other gastrointestinal disorders (20 sources) Malabsorption - iron; Translations: [Intestinal malabsorption, unspecified] Onset: 11-04-19 Chronic Other gastrointestinal disorders (1 source) Intestinal malabsorption, unspecified; 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] Onset: 11-04-19 Chronic Other gastrointestinal disorders (1 source) Diarrhea, unspecified; Translations: [Diarrhea, unspecified type] Onset: 04-02-20 Episodic Other gastrointestinal disorders (1 source) Dysphagia; Translations: [Dysphagia, unspecified] 04-28-2023 Episodic Other hematologic conditions (1 source) H/O: anemia; Translations: [History of anemia] Episodic Other nervous system disorders (20 sources) Communicating hydrocephalus; 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] Onset: 12-22-19 09 09-24-2021 Chronic Other nervous system disorders (1 source) Paresthesia; Translations: [Paresthesia of skin] Episodic Other nervous system disorders (1 source) H/O: epilepsy; Translations: [Personal history of other diseases of the nervous system and sense organs] Episodic Other nervous system disorders (1 source) Disturbance in speech; Translations: [Other speech disturbances] 12-02-2023 Episodic Other nervous system disorders (1 source) H/O: brain disorder; Translations: [Personal history of other diseases of the nervous system and sense organs] 12-02-2023 Episodic Other nervous system disorders (1 source) Other speech disturbances; Translations: [Spell of change in speech] Onset: 12-02-19 Episodic Other nervous system disorders (1 source) Personal history of other diseases of the nervous system and sense organs; Translations: [History of hydrocephalus] Onset: 12-02-19 Episodic Other screening for suspected conditions (not mental disorders or infectious disease) (4 sources) Mammography abnormal; Translations: [Other abnormal and inconclusive findings on diagnostic imaging of breast] Episodic Other upper respiratory disease (1 source) Allergic rhinitis due to pollen; Translations: [Allergic rhinitis due to pollen] Chronic Other upper respiratory disease (1 source) Chronic rhinitis; Translations: [Chronic rhinitis] Chronic Residual codes; unclassified (1 source) Hypersomnia; Translations: [Hypersomnia, unspecified] 12-02-2023 Chronic Residual codes; unclassified (1 source) Hypersomnia, unspecified; Translations: [Hypersomnia] Onset: 12-02-19 Chronic Residual codes; unclassified (1 source) Body mass index (BMI) 22.0-22.9, adult; Translations: [BMI 22.0-22.9, adult] Episodic Residual codes; unclassified (3 sources) Insomnia; Translations: [Insomnia, unspecified] Episodic Residual codes; unclassified (2 sources) Family history of malignant neoplasm of ovary; Translations: [Family history of malignant neoplasm of ovary] 05-19-2023 Episodic Residual codes; unclassified (1 source) Genetic susceptibility to other disease; Translations: [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] Onset: 12-01-19 Episodic Residual codes; unclassified (1 source) Insomnia, unspecified; Translations: [Insomnia, unspecified type] Onset: 12-02-19 Episodic Rheumatoid arthritis and related disease (20 sources) Rheumatoid arthritis; Translations: [Rheumatoid arthritis, unspecified] Onset: 10-13-19 14 10-13-2013 Chronic Systemic lupus erythematosus and connective tissue disorders (20 sources) Keratoconjunctivitis sicca, in Sjogren's syndrome; Translations: [Sjogren's syndrome] Onset: 10-13-19 14 10-13-2013 Chronic Unclassified (1 source) POTS (postural orthostatic tachycardia syndrome); Translations: [POTS (postural orthostatic tachycardia syndrome)] Onset: 10-22-19 Past or Other Problems Problem Classification Problem Date Documented Da te Episodic/Chronic Deficiency and other anemia (20 sources) Anemia; Translations: [Anemia, unspecified] Onset: 04-14-2013 04-14-2013 Episodic Deficiency and other anemia (20 sources) Iron deficiency anemia; Translations: [Iron deficiency anemia, unspecified] Onset: 11-04-2022 Episodic Deficiency and other anemia (1 source) Anemia, unspecified; Translations: [Anemia, unspecified type] Onset: 04-14-2013 Episodic Deficiency and other anemia (1 source) Iron deficiency anemia, unspecified; Translations: [Iron deficiency anemia, unspecified iron deficiency anemia type] Onset: 11-04-2022 Episodic Nutritional deficiencies (12 sources) Iron deficiency; Translations: [Iron deficiency] Onset: 04-02-2023 04-02-2023 Episodic Other aftercare (1 source) Other terminal carman (current) drug therapy; Translations: [Long-term current use of benzodiazepine] Onset: 06-06-2023 Episodic Other connective tissue disease (20 sources) Fibromyalgia; Translations: [Fibromyalgia] Onset: 06-12-2015 06-12-2015 Episodic Other gastrointestinal disorders (11 sources) Diarrhea; Translations: [Diarrhea, unspecified] Onset: 04-02-2023 04-02-2023 Episodic Residual codes; unclassified (1 source) Family history of malignant neoplasm of ovary; Translations: [Family history of ovarian cancer] Onset: 07-02-2023 Episodic NEGATED: Highlighted row has not occurred!Residual codes; unclassified (2 sources) Disease Episodic Results Test Name Value Interpretation Reference Range Facil ity Vital Signs Date Time Vital Sign Value Performing Clinician Facility 12-03-2023 13:15-0500 Body temperature 98.4 [degF] Ale Jacobson APRN.CNP Work Phone: [facility] 12-03-2023 13:15-0500 Body weight 61.46 kg Ale Jacobson APRN.CNP Work Phone: [facility] 12-03-2023 13:15-0500 Diastolic blood pressure 86 mm[Hg] Ale Jacobson APRN.CNP Work Phone: [facility] 12-03-2023 13:15-0500 Heart rate 98 /min Ale Jacobson HUSBANDRY TECHNICIAN.TECHNICAL PUBLICATIONS WRITER Work Phone: [facility] 12-03-2023 13:15-0500 SaO2% (BldA) [Mass fraction] 100 % Ale Jacobson HUSBANDRY TECHNICIAN.TECHNICAL PUBLICATIONS WRITER Work Phone: [facility] 12-03-2023 13:15-0500 Systolic blood pressure 120 mm[Hg] Ale Jacobson HUSBANDRY TECHNICIAN.TECHNICAL PUBLICATIONS WRITER Work Phone: [facility] 05-19-2023 14:02-0400 Body height 160 cm Mushtaq Masci DO Work Phone: [facility] 05-19-2023 14:02-0400 Body temperature 99.1 [degF] Mushtaq Masci DO Work Phone: [facility] 05-19-2023 14:02-0400 Body weight 63.96 kg Mushtaq Masci DO Work Phone: [facility] 05-19-2023 14:02-0400 Diastolic blood pressure 76 mm[Hg] Mushtaq Masci DO Work Phone: [facility] 05-19-2023 14:02-0400 Heart rate 74 /min Mushtaq Masci DO Work Phone: [facility] 05-19-2023 14:02-0400 SaO2% (BldA) [Mass fraction] 100 % Mushtaq Masci DO Work Phone: [facility] 05-19-2023 14:02-0400 Systolic blood pressure 114 mm[Hg] Mushtaq Masci DO Work Phone: [facility] 04-28-2023 13:16-0400 Body height 160 cm Mei Ulysses PA-C Work Phone: [facility] 04-28-2023 13:16-0400 Body temperature 98.2 [degF] Mei Ulysses PA-C Work Phone: [facility] 04-28-2023 13:16-0400 Body weight 64.41 kg Mei Ulysses PA-C Work Phone: [facility] 04-28-2023 13:16-0400 Diastolic blood pressure 70 mm[Hg] Mei Nancef PA-C Work Phone: [facility] 04-28-2023 13:16-0400 Heart rate 87 /min Mei Warner PA-C Work Phone: [facility] 04-28-2023 13:16-0400 SaO2% (BldA) [Mass fraction] 98 % Mei Warner PA-C Work Phone: [facility] 04-28-2023 13:16-0400 Systolic blood pressure 114 mm[Hg] Mei Nancef PA-C Work Phone: [facility] 12-16-2022 13:25-0400 Body temperature 97.7 [degF] Treatment Wstr Work Phone: [facility] 12-16-2022 13:25-0400 Diastolic blood pressure 69 mm[Hg] Treatment Wstr Work Phone: [facility] 12-16-2022 13:25-0400 Heart rate 69 /min Treatment Wstr Work Phone: [facility] 12-16-2022 13:25-0400 Systolic blood pressure 145 mm[Hg] Treatment Wstr Work Phone: [facility] 12-09-2022 15:00-0400 Body temperature 97.59 [degF] Treatment Wstr Work Phone: [facility] 12-09-2022 15:00-0400 Diastolic blood pressure 64 mm[Hg] Treatment Wstr Work Phone: [facility] 12-09-2022 15:00-0400 Heart rate 63 /min Treatment Wstr Work Phone: [facility] 12-09-2022 15:00-0400 Respiratory rate 18 /min Treatment Wstr Work Phone: [facility] 12-09-2022 15:00-0400 SaO2% (BldA) [Mass fraction] 100 % Treatment Wstr Work Phone: [facility] 12-09-2022 15:00-0400 Systolic blood pressure 120 mm[Hg] Treatment Wstr Work Phone: [facility] 12-05-2022 09:58-0500 Body temperature 98.8 [degF] Treatment Wstr Work Phone: [facility] 12-05-2022 09:58-0500 Diastolic blood pressure 58 mm[Hg] Treatment Wstr Work Phone: [facility] 12-05-2022 09:58-0500 Heart rate 62 /min Treatment Wstr Work Phone: [facility] 12-05-2022 09:58-0500 SaO2% (BldA) [Mass fraction] 98 % Treatment Wstr Work Phone: [facility] 12-05-2022 09:58-0500 Systolic blood pressure 118 mm[Hg] Treatment Wstr Work Phone: [facility] 12-03-2022 11:21-0500 Body temperature 98.29 [degF] Alexandria Queener PA-C Work Phone: [facility] 12-03-2022 11:21-0500 Body weight 64.86 kg Alexandria Queener PA-C Work Phone: [facility] 12-03-2022 11:21-0500 Diastolic blood pressure 83 mm[Hg] Alexandria Queener PA-C Work Phone: [facility] 12-03-2022 11:21-0500 Heart rate 69 /min Alexandria Queener PA-C Work Phone: [facility] 12-03-2022 11:21-0500 Respiratory rate 16 /min Alexandria Queener PA-C Work Phone: [facility] 12-03-2022 11:21-0500 SaO2% (BldA) [Mass fraction] 100 % Alexandria Queener PA-C Work Phone: [facility] 12-03-2022 11:21-0500 Systolic blood pressure 121 mm[Hg] Alexandria Urban PA-C Work Phone: [facility] 12-02-2022 15:30-0500 Body temperature 98.4 [degF] Treatment Wstr Work Phone: [facility] 12-02-2022 15:30-0500 Diastolic blood pressure 71 mm[Hg] Treatment Wstr Work Phone: [facility] 12-02-2022 15:30-0500 Heart rate 71 /min Treatment Wstr Work Phone: [facility] 12-02-2022 15:30-0500 Respiratory rate 16 /min Treatment Wstr Work Phone: [facility] 12-02-2022 15:30-0500 Systolic blood pressure 114 mm[Hg] Treatment Wstr Work Phone: [facility] 11-28-2022 08:44-0500 Body temperature 97 [degF] Treatment Wstr Work Phone: [facility] 11-28-2022 08:44-0500 Diastolic blood pressure 67 mm[Hg] Treatment Wstr Work Phone: [facility] 11-28-2022 08:44-0500 Heart rate 68 /min Treatment Wstr Work Phone: [facility] 11-28-2022 08:44-0500 Systolic blood pressure 108 mm[Hg] Treatment Wstr Work Phone: [facility] 11-25-2022 13:31-0500 Body temperature 97 [degF] Treatment Wstr Work Phone: [facility] 11-25-2022 13:31-0500 Diastolic blood pressure 65 mm[Hg] Treatment Wstr Work Phone: [facility] 11-25-2022 13:31-0500 Heart rate 72 /min Treatment Wstr Work Phone: [facility] 11-25-2022 13:31-0500 Systolic blood pressure 121 mm[Hg] Treatment Wstr Work Phone: [facility] 11-21-2022 13:14-0500 Body temperature 98.29 [degF] Treatment Wstr Work Phone: [facility] 11-21-2022 13:14-0500 Diastolic blood pressure 67 mm[Hg] Treatment Wstr Work Phone: [facility] 11-21-2022 13:14-0500 Heart rate 67 /min Treatment Wstr Work Phone: [facility] 11-21-2022 13:14-0500 Respiratory rate 20 /min Treatment Wstr Work Phone: [facility] 11-21-2022 13:14-0500 Systolic blood pressure 117 mm[Hg] Treatment Wstr Work Phone: [facility] 11-18-2022 13:59-0500 Body temperature 97.39 [degF] Treatment Wstr Work Phone: [facility] 11-18-2022 13:59-0500 Diastolic blood pressure 69 mm[Hg] Treatment Wstr Work Phone: [facility] 11-18-2022 13:59-0500 Heart rate 75 /min Treatment Wstr Work Phone: [facility] 11-18-2022 13:59-0500 Respiratory rate 18 /min Treatment Wstr Work Phone: [facility] 11-18-2022 13:59-0500 SaO2% (BldA) [Mass fraction] 98 % Treatment Wstr Work Phone: [facility] 11-18-2022 13:59-0500 Systolic blood pressure 123 mm[Hg] Treatment Wstr Work Phone: [facility] 11-14-2022 14:38-0500 Body temperature 97.81 [degF] Treatment Wstr Work Phone: [facility] 11-14-2022 14:38-0500 Diastolic blood pressure 74 mm[Hg] Treatment Wstr Work Phone: [facility] 11-14-2022 14:38-0500 Heart rate 76 /min Treatment Wstr Work Phone: [facility] 11-14-2022 14:38-0500 Respiratory rate 16 /min Treatment Wstr Work Phone: [facility] 11-14-2022 14:38-0500 SaO2% (BldA) [Mass fraction] 100 % Treatment Wstr Work Phone: [facility] 11-14-2022 14:38-0500 Systolic blood pressure 123 mm[Hg] Treatment Wstr Work Phone: [facility] 11-14-2022 13:43-0500 Body height 160 cm Mei Ulysses PA-C Work Phone: [facility] 11-14-2022 13:43-0500 Body temperature 98.6 [degF] Mei Ulysses PA-C Work Phone: [facility] 11-14-2022 13:43-0500 Body weight 65.23 kg Mei Ulysses PA-C Work Phone: [facility] 11-14-2022 13:43-0500 Diastolic blood pressure 78 mm[Hg] Mei Ulysses PA-C Work Phone: [facility] 11-14-2022 13:43-0500 Heart rate 109 /min Mei Ulysses PA-C Work Phone: [facility] 11-14-2022 13:43-0500 SaO2% (BldA) [Mass fraction] 100 % Mei Ulysses PA-C Work Phone: [facility] 11-14-2022 13:43-0500 Systolic blood pressure 120 mm[Hg] Mei Ulysses PA-C Work Phone: [facility] 11-04-2022 13:22-0500 Body height 159.4 cm Mushtaq Masci DO Work Phone: [facility] 11-04-2022 13:22-0500 Body temperature 98.1 [degF] Mushtaq Masci DO Work Phone: [facility] 11-04-2022 13:22-0500 Body weight 65.77 kg Mushtaq Masci DO Work Phone: [facility] 11-04-2022 13:22-0500 Diastolic blood pressure 72 mm[Hg] Mushtaq Aaroni DO Work Phone: [facility] 11-04-2022 13:22-0500 Heart rate 66 /min Mushtaq Masci DO Work Phone: [facility] 11-04-2022 13:22-0500 SaO2% (BldA) [Mass fraction] 97 % Mushtaq Masci DO Work Phone: [facility] 11-04-2022 13:22-0500 Systolic blood pressure 121 mm[Hg] Mushtaq Masci DO Work Phone: [facility] 10-24-2022 07:27-0500 Body height 162.5 cm Sandi Alexander HUSBANDRY TECHNICIAN.TECHNICAL PUBLICATIONS WRITER Work Phone: [facility] 10-24-2022 07:27-0500 Body weight 64.92 kg Sandi Alexander HUSBANDRY TECHNICIAN.TECHNICAL PUBLICATIONS WRITER Work Phone: [facility] 10-24-2022 07:27-0500 Diastolic blood pressure 80 mm[Hg] Sandi Alexander HUSBANDRY TECHNICIAN.TECHNICAL PUBLICATIONS WRITER Work Phone: [facility] 10-24-2022 07:27-0500 Heart rate 68 /min Sandi Alexander HUSBANDRY TECHNICIAN.TECHNICAL PUBLICATIONS WRITER Work Phone: [facility] 10-24-2022 07:27-0500 Respiratory rate 12 /min Sandi Alexander HUSBANDRY TECHNICIAN.TECHNICAL PUBLICATIONS WRITER Work Phone: [facility] 10-24-2022 07:27-0500 Systolic blood pressure 120 mm[Hg] Sandi Alexander HUSBANDRY TECHNICIAN.TECHNICAL PUBLICATIONS WRITER Work Phone: [facility] 04-26-2022 09:02-0400 Body temperature 97.39 [degF] Vijya Petersen Jr., MD Work Phone: [facility] 04-26-2022 09:02-0400 Body weight 64.95 kg Vijay Petersen Jr., MD Work Phone: [facility] 04-26-2022 09:02-0400 Diastolic blood pressure 64 mm[Hg] Vijay Petersen Jr., MD Work Phone: [facility] 04-26-2022 09:02-0400 Heart rate 76 /min Vijay Petersen Jr., MD Work Phone: [facility] 04-26-2022 09:02-0400 Respiratory rate 18 /min Vijay Petersen Jr., MD Work Phone: [facility] 04-26-2022 09:02-0400 SaO2% (BldA) [Mass fraction] 99 % Vijay Petersen Jr., MD Work Phone: [facility] 04-26-2022 09:02-0400 Systolic blood pressure 118 mm[Hg] Vijay Petersen Jr., MD Work Phone: [facility] 03-22-2022 09:00-0400 Body weight 63.05 kg Marie Barajas HUSBANDRY TECHNICIAN.TECHNICAL PUBLICATIONS WRITER Work Phone: [facility] 03-22-2022 09:00-0400 Heart rate 73 /min Marie Barajas HUSBANDRY TECHNICIAN.TECHNICAL PUBLICATIONS WRITER Work Phone: [facility] 03-22-2022 09:00-0400 SaO2% (BldA) [Mass fraction] 100 % Marie Barajas HUSBANDRY TECHNICIAN.TECHNICAL PUBLICATIONS WRITER Work Phone: [facility] 01-24-2022 09:58-0400 Body temperature 98.49 [degF] Xi Silvahausyovanny HUSBANDRY TECHNICIAN.TECHNICAL PUBLICATIONS WRITER Work Phone: [facility] 01-24-2022 09:58-0400 Body weight 63.5 kg Xi Silvahausen HUSBANDRY TECHNICIAN.TECHNICAL PUBLICATIONS WRITER Work Phone: [facility] 01-24-2022 09:58-0400 Diastolic blood pressure 62 mm[Hg] Xi Silvahausyovanny HUSBANDRY TECHNICIAN.TECHNICAL PUBLICATIONS WRITER Work Phone: [facility] 01-24-2022 09:58-0400 Heart rate 72 /min iX Silvahausyovanny HUSBANDRY TECHNICIAN.TECHNICAL PUBLICATIONS WRITER Work Phone: [facility] 01-24-2022 09:58-0400 Respiratory rate 18 /min Xi Garcia HUSBANDRY TECHNICIAN.TECHNICAL PUBLICATIONS WRITER Work Phone: [facility] [facility] 01-24-2022 09:58-0400 SaO2% (BldA) [Mass fraction] 100 % Xi Garcia HUSBANDRY TECHNICIAN.TECHNICAL PUBLICATIONS WRITER Work Phone: [facility] 01-24-2022 09:58-0400 Systolic blood pressure 118 mm[Hg] Xi Garcia HUSBANDRY TECHNICIAN.TECHNICAL PUBLICATIONS WRITER Work Phone: [facility] 01-29-2019 12:22-0400 BMI (Body Mass Index) 22.67 kg/m2 Shazia Mann [email or web address] [facility] Work Phone: 01-29-2019 12:22-0400 Body Temperature 99.1 [degF] Shazia Mann [email or web address] [facility] Work Phone: Encounters Encounter Date Encounter Type Care Provider Facility Start: 12-03-2023 End: 12-03-2023 ambulatory MUSHTAQ REHMAN Facility:[facility] Start: 12-03-2023 End: 12-03-2023 ambulatory Ale Glenview HUSBANDRY TECHNICIAN.TECHNICAL PUBLICATIONS WRITER Work Phone: Hematology/Oncology Procedures Date Procedure Procedure Detail Performing Clinician Start: 11-10-2023 Screening digital br east tomosynthesis bi Sandi Alexander HUSBANDRY TECHNICIAN.TECHNICAL PUBLICATIONS WRITER Work Phone: Start: 11-07-2022 End: 11-07-2022 Mammography Bulk Order Provider Start: 01-29-2022 COURTNEY SHAFER W GERALD pacheco L Michael DO Work Phone: Start: 08-22-2021 Mammography [facility] Provid er Start: 01-29-2019 Echocardiography Shazia Mann History of No histor y of surgery Shazia Mann Plan of Treatment Date Care Activity Detail Author Start: 10-24-2032 Urine microalbumin profile [facility] Start: 11-10-2024 Screening for malignant neoplasm of breast Mammogram Screening [facility] Start: 12-02-2023 End: 03-02-2024 lamoTRIgine [Mass/volume] in Serum or Plasma LAMOTRIGINE Lab Routine Intractable headache, unspecified chronicity pattern, unspecified headache type Hypersomnia Partial epilepsy (HCC) Expected: 12/02/2023, Expires: 03/02/2024 [facility] Work Phone: Immunizations Immunization Date Immunization Notes Care Provider Reina brooks 10-24-2022 tetanus toxoid, redu sj diphtheria toxoid, and acellular pertussis vaccine, adsorbed Sandi Alexander HUSBANDRY TECHNICIAN.TECHNICAL PUBLICATIONS WRITER Work Phone: [facility] 04-12-2004 diphtheria and tetan us toxoids, adsorbed for pediatric use [facility] Provider [facility] Work Phone: Payers Date Payer Category Payer Unknown [employer] PPO [id number] 2021-Present [phone] [address] [place] [address] PPO [id number] 2021 Unknown [id number] 2021 Unknown [employer] [facility] [id number] 2021-2021 [address] [place] [address] PPO [id number] 2020 Unknown [id number] 2016 Unknown [id number] 2016 Unknown [employer] [id number] 2016-Present [phone] [address] [place] [address] PPO [id number] 2016 Unknown [id number] 1981 Unknown [id number] Social History Date Type Detail Facility Start: 01-06-2012 End: 10-24-2022 Tobacco smoking status NHIS Never smoked tobacco [facility] Start: 10-22-2021 End: 12-03-2023 Alcohol intake Current non-drinker of alcohol (finding) [facility] Start: 09-26-2021 End: 10-24-2022 History SDOH Alcohol Frequency 1 [facility] Start: 09-26-2021 End: 10-24-2022 History SDOH Social Connections Phone 3 [facility] Start: 09-26-2021 End: 10-24-2022 History SDOH Social Connections Meetings 2 [facility] Start: 09-26-2021 History SDOH Physica l Activity MPS 9 [facility] Start: 09-26-2021 End: 10-24-2022 History SDOH Financial 4 [facility] Start: 09-05-2020 Education 16 [facility] Start: 1980 Sex Assigned At Female C [facility] Start: 09-22-2021 End: 04-26-2022 Exposure to SARS-CoV-2 (event) Not sure [facility] Start: 01-06-2012 End: 10-24-2022 Tobacco use and exposure Smokeless tobacco non-user [facility] Start: 10-24-2022 History SDOH Alcohol Std Drinks 0 [facility] Start: 10-24-2022 History SDOH Physica l Activity MPS 6 [facility] Start: 10-24-2022 End: 04-28-2023 History of Social function [facility] Start: 10-24-2022 End: 04-28-2023 Social connection and isolation panel [facility] Do you belong to any clubs or organizations such as samaritan groups, unions, fraternal or athletic groups, or school groups? Yes [facility] Are you now , , , , never or living with a partner? [facility] Frequency of Alcohol Consumption Not on file [facility] How often do you hav e 6 or more drinks on 1 occasion? Never [facility] How hard is it for y ou to pay for the very basics like food, housing, medical care, and heating Not very hard [facility] Do you feel stress - tense, restless, nervous, or anxious, or unable to sleep at night because your mind is troubled all the time - these days [OSQ] Only a little [facility] (I/We) worried wheth er (my/our) food would run out before (I/we) got money to buy more. Never true [facility] In the past 12 month s, was there a time when you were not able to pay the mortgage or rent on time? No [facility] Start: 02-21-2021 Gender identity Identifies as female gender (finding) [facility] Start: 08-28-2020 Sexual orientation Heterosexual (fin ding) [facility] Do you feel stress - tense, restless, nervous, or anxious, or unable to sleep at night because your mind is troubled all the time - these days [OSQ] To some extent [facility] NEGATED: Highlighted row - Never smoker [facility] Work Phone: Functional Status Date Assessment Result Facility NEGATED: Highlighted row Functional performance Functional status health issues are not documented Disease [facility] Work Phone: Mental Status Date Assessment Result Facility NEGATED: Highlighted row Cognitive function [Interpretation] Cognitive status health issues are not documented Disease [facility] Work Phone: Clinical Notes 08-25-2007 to 12-03-2023 Ale Jacobson APRN.TECHNICAL PUBLICATIONS WRITER - 12/03/2023 1:15 PM Vijay Wang Jr., MD - 12/02/2023 10:36 AM ESTTelephone Encounter - Maggie Taylor RN - 11/21/2023 1:05 PM ESTPatient Instructions Note Date & Type Note Facility 12-03-2023 Note HNO ID: [id number] Author: ALE JACOBSON APRN.TECHNICAL PUBLICATIONS WRITER Service: ? Author Type: Nurse Practitioner Type: Progress Notes Filed: 12/03/2023 13:34 Note Text: Chief Complaint Patient presents with: Established Patient HPI: Amberly Galvin is a 43 year old female who presents here today for follow up CHELITA. Per Dr. Rehman's previous note: H/o hydrocephalus, partial epilepsy, fibromyalgia, POTS, epilepsy, Sjogren's disease, vitamin D deficiency and anemia. Blood Donor: One time when she was in high school. Menses: Regular menses. Typically last about 7 days. Can pass clots. Cycles regular about monthly. Has tried different medications to slow menses, but none have worked. History of colonoscopy/EGD: No. Trial of oral iron: Has tried oral iron at least 3 different times in the past. All cause vomiting. Has also tried MVI with iron and that too caused vomiting. Didn't eat beef because many foods macrina beef trigger diarrhea. RA has been ruled out. Diagnosed with Carmen-Danlos--hypermobile EDS. Has routine cardiology monitoring to assess if develops hypervascular EDS. Echo at [facility]. Valves normal. LVEF normal. PFO. Received iron sucrose x10 doses. Last dose 12/16/22. Had colonoscopy/EGD 04/02. Non-bleeding internal hemorrhoids. No colonic mucosal abnormalities. Pathology: A. Stomach, antrum, biopsy: - Chronic inactive antral gastritis. - Immunohistochemistry for Helicobacter pylori will be reported in an addendum. B. Esophagogastric junction, biopsy: - Squamous epithelium with no significant diagnostic alteration. - Inflamed gastric cardia-type mucosa. - No evidence of intestinal metaplasia or dysplasia. H. pylori was positive. Was treated. No new concerns today. Appetite: Normal. Energy level: Fair. Denies fevers or recent illness. Resp:denies cough or sob Cardiac:denies chest pain/palpitations GI:denies abd pain, occ. nausea-chronic, denies vomiting, moving bowels regularly my version of normal. :denies dysuria/hematuria Extrem: I have chronic overall pain. denies new pain Neuro: random neuropathy to finger/toes Skin:denies rashes Heme:denies bleeding, last menses last week, normal occ. heavy menses The ROS is otherwise negative. Past medical history, appointments, medications, allergies reviewed. No changes. EXAM: BP 120/86 Pulse 98 Temp 36.9 ?C (98.4 ?F) (Temporal) Wt 61.5 kg (135 lb 8 oz) LMP 03/03/2023 (Exact Date) SpO2 100% BMI 24.01 kg/m? APPEARANCE Well appearing, alert, in no acute distress, well-hydrated, well nourished. HEART RRR with normal S1 and S2, no murmurs LUNG clear to auscultation ABDOMEN bowel sounds normoactive, soft, non-tender EXTREMITIES No edema NEURO Awake, alert and oriented x 3, Normal gait, and No involuntary motions. SKIN Skin color, texture, turgor normal, no suspicious rashes or lesions LABS: Component Latest Ref Rng AND Units 05/19/2023 12/01/2023 WBC 3.70 - 11.00 k/uL 9.30 6.53 RBC 3.90 - 5.20 m/uL 4.42 4.48 Hemoglobin 11.5 - 15.5 g/dL 13.1 13.2 Hematocrit 36.0 - 46.0 % 39.5 39.7 MCV 80.0 - 100.0 fL 89.4 88.6 MCH 26.0 - 34.0 pg 29.6 29.5 MCHC 30.5 - 36.0 g/dL 33.2 33.2 RDW-CV 11.5 - 15.0 % 12.7 12.9 Platelet Count 150 - 400 k/uL 288 303 MPV 9.0 - 12.7 fL 10.7 10.6 Neut% % 67.6 43.3 Abs Neut (ANC) 1.45 - 7.50 k/uL 6.28 2.83 Lymph% % 26.1 47.8 Abs Lymph 1.00 - 4.00 k/uL 2.43 3.12 [place]% % 5.7 7.8 Abs [place] <0.87 k/uL 0.53 0.51 Eosin% % 0.2 0.3 Abs Eosin <0.46 k/uL <0.03 <0.03 Baso% % 0.2 0.5 Abs Baso <0.11 k/uL <0.03 0.03 Immature Gran % % 0.2 0.3 IMMATURE GRANS (ABS) <0.10 k/uL <0.03 <0.03 NRBC /100 WBC 0.0 0.0 Absolute nRBC <0.01 k/uL <0.01 <0.01 DTYPE Auto Auto Component Latest Ref Rng AND Units 12/16/2022 05/19/2023 12/01/2023 Ferritin 14.7 - 205.1 ng/mL 573.0 (H) 261.0 (H) 193.0 Component Latest Ref Rng AND Units 12/16/2022 05/19/2023 12/01/2023 Iron 41 - 186 ug/dL 83 85 141 TIBC 232 - 386 ug/dL 264 225 (L) 262 Transferrin Saturation 15.0 - 57.0 % 31.4 37.8 53.8 ASSESSMENT/PLAN: 1. Iron deficiency anemia, unspecified iron deficiency anemia type - ICD9: 280.9, ICD10: D50.9 (primary diagnosis) 2. Iron malabsorption - ICD9: 579.8, ICD10: K90.9 - No new concerning findings on exam. - Reviewed labs with pt. - Continue follow up with PCP/specialists. - CBC/iron studies in 6 months. - Follow up after above. - Pt. aware to call office with any questions/concerns. The patient indicates understanding of these issues and agrees with the plan. All documentation from previous visit of 05/19/23-Dr. Rehman was copied and pasted, documentation has been reviewed and edited as necessary for today's visit. Ale Jacobson APRN.[facility] 12-03-2023 History of Present illness Narrative Chief Complaint Patient presents with: Established Patient HPI: Amberly Galvin is a 43 year old female who presents here today for follow up CHELITA. Per Dr. Rehman's previous note: H/o hydrocephalus, partial epilepsy, fibromyalgia, POTS, epilepsy, Sjogren's disease, vitamin D deficiency and anemia. Blood Donor: One time when she was in high school. Menses: Regular menses. Typically last about 7 days. Can pass clots. Cycles regular about monthly. Has tried different medications to slow menses, but none have worked. History of colonoscopy/EGD: No. Trial of oral iron: Has tried oral iron at least 3 different times in the past. All cause vomiting. Has also tried MVI with iron and that too caused vomiting. Didn't eat beef because many foods macrina beef trigger diarrhea. RA has been ruled out. Diagnosed with Carmen-Danlos--hypermobile EDS. Has routine cardiology monitoring to assess if develops hypervascular EDS. Echo at [facility]. Valves normal. LVEF normal. PFO. Received iron sucrose x10 doses. Last dose 12/16/22. Had colonoscopy/EGD 04/02. Non-bleeding internal hemorrhoids. No colonic mucosal abnormalities. Pathology: A. Stomach, antrum, biopsy: - Chronic inactive antral gastritis. - Immunohistochemistry for Helicobacter pylori will be reported in an addendum. B. Esophagogastric junction, biopsy: - Squamous epithelium with no significant diagnostic alteration. - Inflamed gastric cardia-type mucosa. - No evidence of intestinal metaplasia or dysplasia. H. pylori was positive. Was treated. No new concerns today. Appetite: Normal. Energy level: Fair. Denies fevers or recent illness. Resp:denies cough or sob Cardiac:denies chest pain/palpitations GI:denies abd pain, occ. nausea-chronic, denies vomiting, moving bowels regularly my version of normal. :denies dysuria/hematuria Extrem: I have chronic overall pain. denies new pain Neuro: random neuropathy to finger/toes Skin:denies rashes Heme:denies bleeding, last menses last week, normal occ. heavy menses The ROS is otherwise negative. Past medical history, appointments, medications, allergies reviewed. No changes. EXAM: BP 120/86 Pulse 98 Temp 36.9 C (98.4 F) (Temporal) Wt 61.5 kg (135 lb 8 oz) LMP 03/03/2023 (Exact Date) SpO2 100% BMI 24.01 kg/m APPEARANCE Well appearing, alert, in no acute distress, well-hydrated, well nourished. HEART RRR with normal S1 and S2, no murmurs LUNG clear to auscultation ABDOMEN bowel sounds normoactive, soft, non-tender EXTREMITIES No edema NEURO Awake, alert and oriented x 3, Normal gait, and No involuntary motions. SKIN Skin color, texture, turgor normal, no suspicious rashes or lesions LABS: Component Latest Ref Rng & Units 05/19/2023 12/01/2023 WBC 3.70 - 11.00 k/uL 9.30 6.53 RBC 3.90 - 5.20 m/uL 4.42 4.48 Hemoglobin 11.5 - 15.5 g/dL 13.1 13.2 Hematocrit 36.0 - 46.0 % 39.5 39.7 MCV 80.0 - 100.0 fL 89.4 88.6 MCH 26.0 - 34.0 pg 29.6 29.5 MCHC 30.5 - 36.0 g/dL 33.2 33.2 RDW-CV 11.5 - 15.0 % 12.7 12.9 Platelet Count 150 - 400 k/uL 288 303 MPV 9.0 - 12.7 fL 10.7 10.6 Neut% % 67.6 43.3 Abs Neut (ANC) 1.45 - 7.50 k/uL 6.28 2.83 Lymph% % 26.1 47.8 Abs Lymph 1.00 - 4.00 k/uL 2.43 3.12 [place]% % 5.7 7.8 Abs [place] <0.87 k/uL 0.53 0.51 Eosin% % 0.2 0.3 Abs Eosin <0.46 k/uL <0.03 <0.03 Baso% % 0.2 0.5 Abs Baso <0.11 k/uL <0.03 0.03 Immature Gran % % 0.2 0.3 IMMATURE GRANS (ABS) <0.10 k/uL <0.03 <0.03 NRBC /100 WBC 0.0 0.0 Absolute nRBC <0.01 k/uL <0.01 <0.01 DTYPE Auto Auto Component Latest Ref Rng & Units 12/16/2022 05/19/2023 12/01/2023 Ferritin 14.7 - 205.1 ng/mL 573.0 (H) 261.0 (H) 193.0 Component Latest Ref Rng & Units 12/16/2022 05/19/2023 12/01/2023 Iron 41 - 186 ug/dL 83 85 141 TIBC 232 - 386 ug/dL 264 225 (L) 262 Transferrin Saturation 15.0 - 57.0 % 31.4 37.8 53.8 ASSESSMENT/PLAN: 1. Iron deficiency anemia, unspecified iron deficiency anemia type - ICD9: 280.9, ICD10: D50.9 (primary diagnosis) 2. Iron malabsorption - ICD9: 579.8, ICD10: K90.9 - No new concerning findings on exam. - Reviewed labs with pt. - Continue follow up with PCP/specialists. - CBC/iron studies in 6 months. - Follow up after above. - Pt. aware to call office with any questions/concerns. The patient indicates understanding of these issues and agrees with the plan. All documentation from previous visit of 05/19/23-Dr. Rehman was copied and pasted, documentation has been reviewed and edited as necessary for today's visit. Ale Jacobson APRN.TECHNICAL PUBLICATIONS WRITER documented in this encounter [facility] 12-02-2023 Note HNO ID: [id number] Author: VIJAY PETERSEN JR, MD Service: ? Author Type: Physician Type: Progress Notes Filed: 12/03/2023 18:52 Note Text: ESTABLISHED PATIENT VISIT (Virtual Visit with Video) For this virtual visit, the patient has been identified by name and (MRN and photo identification as well if available). Those taking part in visit: Patient and physician via [email or web address]. Consent for this visit received from patient. I have communicated my name and active licensure. The patient's identity and physical location ([place])were verified at the time of this visit. The patient has been informed of the risks and benefits of -- and alternatives to -- treatment through a remote evaluation and consents to proceed with the evaluation remotely. HISTORY OF PRESENT ILLNESS: Amberly Galvin is a 43 year old female, with a PMH significant for and per last office visit of 06/06/23: 1. Partial epilepsy (HCC) - ICD9: 345.50, ICD10: G40.109 (primary diagnosis) Stable as above. Continue Lamictal 100mg BID as pt has been on since last year. Continue Klonopin 2mg nightly. Reviewed seizure risks and precautions with pt. 2. Insomnia, unspecified type - ICD9: 780.52, ICD10: G47.00 Worse, despite no new life stressors, no change in meds and no new med conditions. Question if due to not being as active during the day due to chronic daytime sleepiness. Will attempt to treat latter to see if in turn, it becomes easier to fall asleep. 3. Hypersomnia due to medical condition - ICD9: 327.14, ICD10: G47.14 Patient with hypersomnia secondary to known medical conditions including POTS. ESS is 14 in office. Will attempt to treat by means of Nuvigil 150mg QAM. If they do not approve Nuvigil will then try Provigil 100mg in AM and 100mg in afternoon. SE and ADRs d/w pt. Note no s/s of FANNIE and no narcolepsy tetrad. Also encouraged pt to follow up with Dr. Rehman for Fe infusions as low Fe too may be contributing to symptoms. Advised pt not to drive or operate heavy machinery if sleepy. 4. Long-term current use of benzodiazepine - ICD9: V58.69, ICD10: Z79.899 - BENZO CONFIRM, URINE - TOX SCREEN ROUT UR Patient states never received Armodafinil as patient states that they would not use GoodRX. Not consistent with our conversations with pharmacy. States had an H Pylori infection during the interim. States also found out she has a hole in her heart and thus non on ASA 81mg daily. ECHO per Dr. Glaser of [facility] showed PFO per reports. No seizures that pt is aware of and reports compliance with Lamictal and Klonopin. States however that she is having odd ball symptoms and would be ok with an MRI, stating she is having more headaches, more blurred vision and often these symptoms are independent of each other. Also reports that she will try to talk an words are not right. States symptoms weekly. Can occur multiple days in a row. No recent Lamictal level. States last night when looking at phone, had visual change but in only one eye (left eye), but states can switch between eyes. Has not seen eye doctor lately and states last time they did they blew me off and wants to see her step father who is an eye doctor. States nothing has changed with sleep at night. Noticing more that she is waking up more during the night. States I am like an older person and just randomly wake up . Going to bed about 8PM. Tries to be asleep by 10PM. States she does not know why she does not fall asleep faster - waiting for meds to kicking in. Waking to start the day about 5AM. States does not feel awake. Has to drink coffee to feel like a human . Energy levels bad during the day. No RLS symptoms. Pt states if takes a nap during the day cannot fall asleep at night. Feels lack of sleep at night is her greatest issue. Pt estimates about 5-6 hours of sleep at night. When wakes during the night will only be up for about 5 hours. When asked if worries about stuff at night states probably . Lots of stressors at home. Has not followed with Rheumatology as states doctor who was seeing me would tell me you're good . Sleep Questionnaire Data Depression Screening 10/24/2022 05/18/2023 12/02/2023 PHQ-2 Score 0 0 0 PHQ-9 Score 7 - 4 PED PHQ-9 10/24/2022 05/18/2023 12/02/2023 Little interest or pleasure in doing things Not at all Not at all Not at all Feeling down, depressed, or hopeless Not at all Not at all Not at all Trouble falling or staying asleep, or sleeping too much Several days - Several days Feeling tired or having little energy Several days - Several days Poor appetite or overeating Several days - Not at all Feeling bad about yourself - or that you are a failure or have let yourself or your family down Not at all - Not at all Trouble concentrating on things, such as reading the newspaper or watching television More than half the days - Several days Moving or speaking so slowly that other people could have noticed. Or (more content not included)... [facility] 12-02-2023 History of Present illness Narrative ESTABLISHED PATIENT VISIT (Virtual Visit with Video) For this virtual visit, the patient has been identified by name and (MRN and photo identification as well if available). Those taking part in visit: Patient and physician via [email or web address]. Consent for this visit received from patient. I have communicated my name and active licensure. The patient's identity and physical location ([place])were verified at the time of this visit. The patient has been informed of the risks and benefits of -- and alternatives to -- treatment through a remote evaluation and consents to proceed with the evaluation remotely. HISTORY OF PRESENT ILLNESS: Amberly Galvin is a 43 year old female, with a PMH significant for and per last office visit of 06/06/23: 1. Partial epilepsy (HCC) - ICD9: 345.50, ICD10: G40.109 (primary diagnosis) Stable as above. Continue Lamictal 100mg BID as pt has been on since last year. Continue Klonopin 2mg nightly. Reviewed seizure risks and precautions with pt. 2. Insomnia, unspecified type - ICD9: 780.52, ICD10: G47.00 Worse, despite no new life stressors, no change in meds and no new med conditions. Question if due to not being as active during the day due to chronic daytime sleepiness. Will attempt to treat latter to see if in turn, it becomes easier to fall asleep. 3. Hypersomnia due to medical condition - ICD9: 327.14, ICD10: G47.14 Patient with hypersomnia secondary to known medical conditions including POTS. ESS is 14 in office. Will attempt to treat by means of Nuvigil 150mg QAM. If they do not approve Nuvigil will then try Provigil 100mg in AM and 100mg in afternoon. SE and ADRs d/w pt. Note no s/s of FANNIE and no narcolepsy tetrad. Also encouraged pt to follow up with Dr. Rehman for Fe infusions as low Fe too may be contributing to symptoms. Advised pt not to drive or operate heavy machinery if sleepy. 4. Long-term current use of benzodiazepine - ICD9: V58.69, ICD10: Z79.899 - BENZO CONFIRM, URINE - TOX SCREEN ROUT UR Patient states never received Armodafinil as patient states that they would not use GoodRX. Not consistent with our conversations with pharmacy. States had an H Pylori infection during the interim. States also found out she has a hole in her heart and thus non on ASA 81mg daily. ECHO per Dr. Glaser of [facility] showed PFO per reports. No seizures that pt is aware of and reports compliance with Lamictal and Klonopin. States however that she is having odd ball symptoms and would be ok with an MRI, stating she is having more headaches, more blurred vision and often these symptoms are independent of each other. Also reports that she will try to talk an words are not right. States symptoms weekly. Can occur multiple days in a row. No recent Lamictal level. States last night when looking at phone, had visual change but in only one eye (left eye), but states can switch between eyes. Has not seen eye doctor lately and states last time they did they blew me off and wants to see her step father who is an eye doctor. States nothing has changed with sleep at night. Noticing more that she is waking up more during the night. States I am like an older person and just randomly wake up . Going to bed about 8PM. Tries to be asleep by 10PM. States she does not know why she does not fall asleep faster - waiting for meds to kicking in. Waking to start the day about 5AM. States does not feel awake. Has to drink coffee to feel like a human . Energy levels bad during the day. No RLS symptoms. Pt states if takes a nap during the day cannot fall asleep at night. Feels lack of sleep at night is her greatest issue. Pt estimates about 5-6 hours of sleep at night. When wakes during the night will only be up for about 5 hours. When asked if worries about stuff at night states probably . Lots of stressors at home. Has not followed with Rheumatology as states doctor who was seeing me would tell me you're good . Sleep Questionnaire Data Depression Screening 10/24/2022 05/18/2023 12/02/2023 PHQ-2 Score 0 0 0 PHQ-9 Score 7 - 4 PED PHQ-9 10/24/2022 05/18/2023 12/02/2023 Little interest or pleasure in doing things Not at all Not at all Not at all Feeling down, depressed, or hopeless Not at all Not at all Not at all Trouble falling or staying asleep, or sleeping too much Several days - Several days Feeling tired or having little energy Several days - Several days Poor appetite or overeating Several days - Not at all Feeling bad about yourself - or that you are a failure or have let yourself or your family down Not at all - Not at all Trouble concentrating on things, such as reading the newspaper or watching television More than half the days - Several days Moving or speaking so slowly that other people could have noticed. Or the opposite - being so fidgety or restless that you have been moving around a lot more than usual More than half the days - Several days Thoughts that you would be better off , or of hurting yourself in some way Not at all - Not at all If you checked off any problems, how difficult have these problems made it for you to do your work, take care of things at home, or get along with other people? Somewhat difficult - Somewhat difficult PHQ-9 Score 7 (Mild Depression) - 4 (None-Minimal Depression) [place] Sleepiness Scale 10/24/2022 05/18/2023 12/02/2023 Score - - 3 (No daytime sleepiness) Insomnia Severity Index 10/24/2022 05/18/2023 12/02/2023 Score - - 12 REVIEW OF SYSTEMS GENERAL:No weight loss, malaise or fevers. HEENT:See HPI. NECK:Negative for lumps, goiter, pain and significant neck swelling RESPIRATORY: Negative for cough, wheezing or shortness of breath. CARDIOVASCULAR: Negative for chest pain, leg swelling or palpitations. GASTROINTESTINAL: Negative for abdominal discomfort, blood in stools or black stools or change in bowel habits GENITOURINARY: No history of dysuria, frequency or incontinence MUSCULOSKELETAL: Negative for joint pain or swelling, back pain or muscle pain. NEUROLOGIC:Negative for focal numbness or weakness, headaches and dizziness or syncope, vision changes, speech/languag changes - EXCEPT that as per HPI above. SKIN:Negative for lesions, rash, and itching. HEMATOLOGIC/LYMPHATIC/IMMUNOLOGIC: Negative for prolonged bleeding, bruising easily or swollen nodes. ENDOCRINE: Negative for cold or heat intolerance, polyuria, polydipsia and goiter. The remainder of the ROS was reviewed and is negative. PSYCH: Im not depressed like my family members. No SI or HI. LAB/IMAGING: Those performed since patient's last visit have been reviewed. WBC (k/uL) Date Value 12/01/2023 6.53 RBC (m/uL) Date Value 12/01/2023 4.48 Hemoglobin (g/dL) Date Value 12/01/2023 13.2 Hematocrit (%) Date Value 12/01/2023 39.7 MCV (fL) Date Value 12/01/2023 88.6 MCH (pg) Date Value 12/01/2023 29.5 MCHC (g/dL) Date Value 12/01/2023 33.2 RDW-CV (%) Date Value 12/01/2023 12.9 Platelet Count (k/uL) Date Value 12/01/2023 303 MPV (fL) Date Value 12/01/2023 10.6 Glucose (mg/dL) Date Value 10/24/2022 80 BUN (mg/dL) Date Value 10/24/2022 8 Creatinine (mg/dL) Date Value 10/24/2022 0.65 Sodium (mmol/L) Date Value 10/24/2022 139 Potassium (mmol/L) Date Value 10/24/2022 3.9 Chloride (mmol/L) Date Value 10/24/2022 104 CO2 (mmol/L) Date Value 10/24/2022 26 Protein, Total (g/dL) Date Value 10/24/2022 7.0 Albumin (g/dL) Date Value 10/24/2022 4.7 Calcium, Total (mg/dL) Date Value 10/24/2022 9.5 Alkaline Phosphatase (U/L) Date Value 10/24/2022 64 Bilirubin, Total (mg/dL) Date Value 10/24/2022 0.3 AST (U/L) Date Value 10/24/2022 20 ALT (U/L) Date Value 10/24/2022 11 Rheumatoid Factor (IU/mL) Date Value 07/11/2006 <3 Hep C Antibody IA (no units) Date Value 06/01/2015 Negative MEDICATIONS: armodafinil (NUVIGIL) 150 mg tab Take 1 tablet by mouth once daily for 90 days. lamoTRIgine (LAMICTAL) 100 mg tablet 1 tablet in AM and 1 tablet in PM. clonazePAM (KLONOPIN) 2 mg tablet Take 1 tablet by mouth daily at bedtime for 180 days. modafinil (PROVIGIL) 200 mg tablet Take 1 tablet by mouth once daily for [address] (PROTONIX) 40 mg tablet Take 1 tablet by mouth twice daily for 10 days. cetirizine HCl (ZYRTEC ORAL) Take 1 tablet by mouth once daily. acetaminophen/diphenhydramine (TYLENOL PM EXTRA STRENGTH ORAL) Take 1 tablet by mouth daily at bedtime. atenolol (TENORMIN) 25 mg tablet Take 1 tablet by mouth once daily. HISTORIES PAST MEDICAL HISTORY Diagnosis Date Communicating hydrocephalus (HCC) Depression Epilepsy (HCC) Hypertension Iron deficiency anemia PMH - PAST MEDICAL HISTORY OF 2004 fibromyalgia PMH - PAST MEDICAL HISTORY OF Mitral valve prolapse POTS (postural orthostatic tachycardia syndrome) Rheumatoid arthritis, adult (HCC) Sjogren's syndrome (HCC) Vitamin D deficiency FAMILY HISTORY Problem Relation Age of Onset Cervical Cancer Mother Hypertension Father other (mvp) Father Asthma Sister Cervical Cancer Sister Melanoma Sister Cancer Maternal Grandmother ovarian cancer COPD Paternal Grandmother ovarian cancer Cancer Paternal Grandfather prostate SOCIAL HISTORY Social History Tobacco Use Smoking status: Never Smokeless tobacco: Never Vaping Use Vaping Use: Never used Substance Use Topics Alcohol use: No Drug use: No PHYSICAL EXAMINATION LMP 03/03/2023 (Exact Date) GENERAL EXAM: General appearance: NAD, flat affect. HEENT: NC/AT, nasal congestion absent, no oral lesions, membranes moist. NECK: ROM nml. Lungs: No audible cough, wheeze, sob. NEUROLOGICAL EXAM: General: Awake, alert, oriented x3 (person,place,time), fluent, no dysarthria; comprehension, naming, repetition intact. CN: EOMI, face symmetric, hearing is intact, palate and tongue movements are intact and symmetric. SCM and trapezius strength normal. Motor: DELGADILLO equal and symmetric. Assessment and Plan: ASSESSMENT/PLAN: 1. Intractable headache, unspecified chronicity pattern, unspecified headache type - ICD9: 784.0, ICD10: R51.9 (primary diagnosis) 2. Spell of change in speech - ICD9: 784.59, ICD10: R47.89 3. Vision changes - ICD9: 368.9, ICD10: H53.9 4. Other symptoms and signs involving the nervous system - ICD9: 781.99, ICD10: R29.818 Multiple symptoms as noted above, of which etiology is uncertain. No clear seizure activity and pt reports compliance with ASMs. Limited exam with this being a virtual visit. Will proceed with MRI brain to evaluate for possible intracranial cause of symptoms. 5. Hypersomnia - ICD9: 780.54, ICD10: G47.10 6. Insomnia, unspecified type - ICD9: 780.52, ICD10: G47.00 Patient reporting both daytime sleepiness as well as insomnia as above. Note that ESS only 3/24 with Insomnia severity Index of 09/21. Given insomnia uncertain if benefit in further evaluating EDS with MSLT, with additional need for Klonopin at bedtime. At least for now, feel appropriate for pt to undergo PSG to evaluate whether there is an underlying sleep related movement or breathing disorder contributing to insomnia. This includes pt having recurrent awakenings from sleep. Will also check TSH and Lamictal levels for cause of daytime sleepiness. 7. History of hydrocephalus - ICD9: V12.49, ICD10: Z86.69 MRI brain as above. 8. Partial epilepsy (HCC) - ICD9: 345.50, ICD10: G40.109 No reported clinical seizures. Continue ASMs at current doses, including: - LAMOTRIGINE - CLONAZEPAM 2 MG TABLET 9. POTS (postural orthostatic tachycardia syndrome) - ICD9: 427.89, ICD10: G90.A History of POTS. Possible that all symptoms endorsed secondary to dx or other known med dx including depression and fibromyaglia. Vijay Petersen MD I spent a total of 40+ minutes on the date of the service which included preparing to see the patient, [id number] patient care, completing clinical documentation, obtaining and/or reviewing separately obtained history, performing a medically appropriate examination, counseling and educating the patient/family/caregiver, ordering medications, tests, or procedures, and communicating results to the patient/family/caregiver. PDMP website checked and validated. All prescriptions have been APPROPRIATELY filled. No suspicious activity was identified. Note: A urine tox screen and urine pain panel have been completed appropriately (after 12 weeks of initiating therapy and at least yearly thereafter). 12/03/2023 by Vijay Petersen MD documented in this encounter [facility] 11-21-2023 Miscellaneous Notes Patient has been identified by name and date of : Yes, Provider Nicola Date 11-21-23 Time 1:06 pm Patient phones for refill(s): Requested Prescriptions Pending Prescriptions Disp Refills clonazePAM (KLONOPIN) 2 mg tablet 30 tablet 5 Sig: Take 1 tablet by mouth daily at bedtime for 180 days. Date of last office visit in Dr. Petersen office: 06-06-23 Date of next office visit in Dr. Petersen office: pt transferred to [facility] to schedule next appt. Please advise. Thank you. Maggie Taylor RN. documented in this encounter [facility] 11-10-2023 Miscellaneous Notes November 10, 2023 PID: [id number] Amberly Galvin [address], [place] [id number] Dear Ms. Galvin, We are pleased to inform you that the results of your recent breast imaging exam on 11/10/2023 are normal. Your mammogram demonstrates that you have dense breast tissue, which could hide abnormalities. Dense breast tissue, in and of itself, is a relatively common condition. Therefore, this information is not provided to cause undue concern; rather, it is to raise your awareness and promote discussion with your health care provider regarding the presence of dense breast tissue in addition to other risk factors. Early detection of cancer is very important. We also understand recommendations regarding breast cancer screening are controversial. Please discuss with your primary care provider which strategy is best for you and whether a mammogram is right for you. Your imaging studies and report will be kept on file at [facility] as part of your permanent medical record and are available for your continuing care. Thank you for allowing us to help in meeting your health care needs. Sincerely, Dr. Bhardwaj Interpreting Radiologist [facility] (Normal over 40) documented in this encounter [facility] 11-10-2023 Note HNO ID: [id number] Author: XI LILLY RT(R) Service: ? Author Type: Technologist Type: Progress Notes Filed: 11/10/2023 07:39 Note Text: Radiology Service Progress Note PATIENT NAME: Amberly Galvin DATE OF SERVICE: November 10, 2023 TIME: 7:39 AM PATIENT IDENTITY VERIFICATION COMPLETED USING TWO (2) IDENTIFIERS: Name and Date of confirmed by patient verbally. FALL SCREENING: Has the patient had 2 falls in the last year or 1 fall with injury or currently using an Ambulatory Assistive Device (Walker, Cane, Wheelchair, Crutches, etc.)? No PATIENT GENDER DATA: Female. status: : No status: NO. PATIENT RELEVANT IMPLANT DATA REVIEWED: Not Applicable PATIENT PRESENTS WITH AN IMPLANTABLE OR ATTACHED ICU CLERK: No RADIOLOGY DEPARTMENT: Mammography PERIPHERAL IV DATA: Not applicable SIGNED BY: RT Jamey(R) November 10, 2023 7:[address] [facility] 11-10-2023 History of Present illness Narrative Radiology Service Progress Note PATIENT NAME: Amberly Galvin DATE OF SERVICE: November 10, 2023 TIME: 7:39 AM PATIENT IDENTITY VERIFICATION COMPLETED USING TWO (2) IDENTIFIERS: Name and Date of confirmed by patient verbally. FALL SCREENING: Has the patient had 2 falls in the last year or 1 fall with injury or currently using an Ambulatory Assistive Device (Walker, Cane, Wheelchair, Crutches, etc.)? No PATIENT GENDER DATA: Female. status: : No status: NO. PATIENT RELEVANT IMPLANT DATA REVIEWED: Not Applicable PATIENT PRESENTS WITH AN IMPLANTABLE OR ATTACHED ICU CLERK: No RADIOLOGY DEPARTMENT: Mammography PERIPHERAL IV DATA: Not applicable SIGNED BY: RT Jamey(Mary Anne) November 10, 2023 7:39 AM documented in this encounter [facility] 07-02-2023 Note HNO ID: [id number] Author: Po Benavides LGC Service: ? Author Type: Genetic Counselor Type: Progress Notes Filed: 07/03/2023 10:32 AM Note Text: [facility] Consultation Note Genetic Counselor: Po Benavides MS, [facility] Patient: Amberly Galvin Patient Name and confirmed at initiation of visit. Appointment occurred with audiovisual communication through [facility] Virtual Visit. I have communicated my name and active licensure. The patient's identity and physical location were verified at the time of this visit. Either the patient or their legal sales representative facility services has been informed of the risks and benefits of -- and alternatives to -- treatment through a remote evaluation and consents to proceed with the evaluation remotely. HIGH LEVEL SUMMARY: The patient's family history is potentially suggestive of a hereditary cancer syndrome. The patient provided informed consent for Integrated [facility] with [employer] through [employer]. Results are expected in 2-3 weeks. IDENTIFICATION AND CHIEF COMPLAINT: Dr. Mushtaq Rehman requested a consultation for genetic counseling and risk assessment for Amberly Galvin, a 43 year old female, for discussion of her family history of cancer. She presents to clinic today to discuss the possibility of a genetic predisposition to cancer, and to further clarify her risks, as well as her family members' risks for cancer. HISTORY OF PRESENT ILLNESS: Amberly Galvin is a 43 year old female with no personal history of cancer. PAST MEDICAL HISTORY Diagnosis Date Communicating hydrocephalus (HCC) Depression Epilepsy (HCC) Hypertension Iron deficiency anemia PMH - PAST MEDICAL HISTORY OF 2004 fibromyalgia PMH - PAST MEDICAL HISTORY OF Mitral valve prolapse POTS (postural orthostatic tachycardia syndrome) Rheumatoid arthritis, adult (HCC) Sjogren's syndrome (HCC) Vitamin D deficiency PAST SURGICAL HISTORY Procedure Laterality Date COLONOSCOPY 04/02/2023 EGD 04/02/2023 NONE CANCER SURVEILLANCE HISTORY: Mammograms: Yes / annually at 41 Breast MRI's: No Breast Biopsies: No Colonoscopy: Yes 04/20 EGD: Yes 04/20 GI Polyps: No Dermatology: No Uterus Intact: Yes Ovaries Intact: Yes SOCIAL HISTORY: Social History Tobacco Use Smoking status: Never Smokeless tobacco: Never Vaping Use Vaping Use: Never used Substance Use Topics Alcohol use: No Drug use: No FAMILY HISTORY: We obtained a detailed, 4-generation family history. Significant diagnoses are listed below: 1 daughter 3 sisters (1 w/ cervical cancer and melanoma and another with melanoma), 1 brother Father: multiple skin cancers 1 pat aunt, 1 pat uncle Paternal grandmother: ovarian cancer 2 mat aunts (no cancer) and 1 mat uncle skin cancer Maternal grandmother: ovarian cancer Maternal grandfather: lung cancer Paternal grandfather: prostate cancer x2 GENETIC COUNSELING RISK ASSESSMENT, DISCUSSION, AND SUGGESTED FOLLOW UP: We reviewed the natural history and genetic etiology of sporadic, familial and hereditary cancer syndromes. The patient's family history is potentially suggestive of hereditary cancer syndromes. We discussed that the best person to begin with genetic testing is a family member with a history of cancer. Mrs. Galvin's grandmothers would be the most appropriate relatives for genetic testing on each side of the family. However, these relatives are unavailable for testing. Therefore we discussed the limitations of interpreting tests results for an unaffected individual. The patient meets NCCN HBOC testing criteria since her paternal grandmother had a personal history of ovarian cancer. We discussed that identification of a hereditary cancer syndrome may help her care providers tailor her medical management. If a mutation is detected, the patient will be referred back to the referring provider and to any additional appropriate care providers to discuss the relevant options. Inheritance of hereditary cancer syndromes was discussed with the patient. If a mutation is not found in the patient, this will decrease the likelihood of a hereditary cancer syndrome for the patient, however it cannot rule it out as the explanation for the family history of cancer. Cancer surveillance options would be discussed for the patient according to the appropriate standard National Comprehensive Cancer Network and [place] [employer] guidelines, with consideration of their personal and family history risk factors. In this case, the patient will be referred back to their care providers for discussions of management. Based on this assessment of the patient's family and personal history, genetic testing is recommended. The patient was offered Integrated BRACAnalysis with [employer] through [employer]. After considering the (more content not included)... [facility] 07-02-2023 History of Present illness Narrative [facility] Consultation Note Genetic Counselor: Po Benavides MS, [facility] Patient: Amberly Galvin Patient Name and confirmed at initiation of visit. Appointment occurred with audiovisual communication through [facility] Virtual Visit. I have communicated my name and active licensure. The patient's identity and physical location were verified at the time of this visit. Either the patient or their legal sales representative facility services has been informed of the risks and benefits of -- and alternatives to -- treatment through a remote evaluation and consents to proceed with the evaluation remotely. HIGH LEVEL SUMMARY: The patient's family history is potentially suggestive of a hereditary cancer syndrome. The patient provided informed consent for Integrated BRACAnalysis with [employer] through [employer]. Results are expected in 2-3 weeks. IDENTIFICATION AND CHIEF COMPLAINT: Dr. Mushtaq Rehman requested a consultation for genetic counseling and risk assessment for Amberly Galvin, a 43 year old female, for discussion of her family history of cancer. She presents to clinic today to discuss the possibility of a genetic predisposition to cancer, and to further clarify her risks, as well as her family members' risks for cancer. HISTORY OF PRESENT ILLNESS: Amberly Galvin is a 43 year old female with no personal history of cancer. PAST MEDICAL HISTORY Diagnosis Date Communicating hydrocephalus (HCC) Depression Epilepsy (HCC) Hypertension Iron deficiency anemia PMH - PAST MEDICAL HISTORY OF 2004 fibromyalgia PMH - PAST MEDICAL HISTORY OF Mitral valve prolapse POTS (postural orthostatic tachycardia syndrome) Rheumatoid arthritis, adult (HCC) Sjogren's syndrome (HCC) Vitamin D deficiency PAST SURGICAL HISTORY Procedure Laterality Date COLONOSCOPY 04/02/2023 EGD 04/02/2023 NONE CANCER SURVEILLANCE HISTORY: Mammograms: Yes / annually at 41 Breast MRI's: No Breast Biopsies: No Colonoscopy: Yes 04/20 EGD: Yes 04/20 GI Polyps: No Dermatology: No Uterus Intact: Yes Ovaries Intact: Yes SOCIAL HISTORY: Social History Tobacco Use Smoking status: Never Smokeless tobacco: Never Vaping Use Vaping Use: Never used Substance Use Topics Alcohol use: No Drug use: No FAMILY HISTORY: We obtained a detailed, 4-generation family history. Significant diagnoses are listed below: 1 daughter 3 sisters (1 w/ cervical cancer and melanoma and another with melanoma), 1 brother Father: multiple skin cancers 1 pat aunt, 1 pat uncle Paternal grandmother: ovarian cancer 2 mat aunts (no cancer) and 1 mat uncle skin cancer Maternal grandmother: ovarian cancer Maternal grandfather: lung cancer Paternal grandfather: prostate cancer x2 GENETIC COUNSELING RISK ASSESSMENT, DISCUSSION, AND SUGGESTED FOLLOW UP: We reviewed the natural history and genetic etiology of sporadic, familial and hereditary cancer syndromes. The patient's family history is potentially suggestive of hereditary cancer syndromes. We discussed that the best person to begin with genetic testing is a family member with a history of cancer. Mrs. Galvin's grandmothers would be the most appropriate relatives for genetic testing on each side of the family. However, these relatives are unavailable for testing. Therefore we discussed the limitations of interpreting tests results for an unaffected individual. The patient meets NCCN HBOC testing criteria since her paternal grandmother had a personal history of ovarian cancer. We discussed that identification of a hereditary cancer syndrome may help her care providers tailor her medical management. If a mutation is detected, the patient will be referred back to the referring provider and to any additional appropriate care providers to discuss the relevant options. Inheritance of hereditary cancer syndromes was discussed with the patient. If a mutation is not found in the patient, this will decrease the likelihood of a hereditary cancer syndrome for the patient, however it cannot rule it out as the explanation for the family history of cancer. Cancer surveillance options would be discussed for the patient according to the appropriate standard National Comprehensive Cancer Network and [place] [employer] guidelines, with consideration of their personal and family history risk factors. In this case, the patient will be referred back to their care providers for discussions of management. Based on this assessment of the patient's family and personal history, genetic testing is recommended. The patient was offered Integrated BRACAnalysis with [employer] through [employer]. After considering the risks, benefits, and limitations, the patient chose to pursue and provided informed consent for the following testing: Integrated BRACAnalysis with [employer] through [employer]. The [employer] panel includes APC, CEDRIC, AXIN2, BAP1, BARD1, BMPR1A, BRCA1, BRCA2, BRIP1, CDH1, CDK4, CDKN2A, CHEK2, CTNNA1, EGFR, EPCAM, FH, FLCN, GREM1, HOXB13, MEN1, MET, MITF, MLH1, MSH2, MSH3, MSH6, MUTYH, NTHL1, PALB2, PMS2, POLD1, POLE, PTEN, RAD51C, RAD51D, RET, SDHA, SDHB, SDHC, SDHD, SMAD4, STK11, TERT, TP53, TSC1, TSC2, and VHL [facility] looks at genes related to inherited breast, ovarian, pancreatic, prostate, colon, uterine, kidney, lung, endocrine, and stomach cancer, as well as inherited colon polyp and melanoma syndromes. We discussed that an NGS panel can rarely result in an unexpected finding which may or may not be related to the presenting phenotype. We discussed that [facility] may contact the patient by text or phone call regarding billing. The patient should watch for this communication and respond promptly. The patient should contact [employer] directly with any billing questions (ph. [phone]). Per the patient's request, I will contact her by telephone to discuss these results. A follow up genetic counseling visit will be scheduled if requested. The patient was seen for a total of 30 minutes, greater than 50% of which was spent [id number] counseling. This plan is being carried out under the oversight of Dr. Berenice Shell. This note will also be sent to the referring provider via the electronic medical record. Po Benavides MS, [facility] Licensed, Certified Genetic Counselor [facility] CC: [facility] Electronically signed by Po Benavides [facility] at 07/03/2023 10:32 AM EDT documented in this encounter [facility] 06-06-2023 Note HNO ID: [id number] Author: Vijay Petersen Jr., MD Service: ? Author Type: Physician Type: Progress Notes Filed: 06/06/2023 9:55 AM Note Text: ESTABLISHED PATIENT VISIT CHIEF COMPLAINT: Follow Up HISTORY OF PRESENT ILLNESS: Amberly Galvin is a 43 year old female, BMI 24.98 kg/m2 with a PMH significant for and per last office visit with Maggie HELLER on 12/03/22: 1. 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 Insomnia, unspecified type - ICD9: 780.52, ICD10: G47.00 3. Focal seizure (HCC) - ICD9: 780.39, ICD10: R56.9 Patient doing well, states that she has not had recurrence of her seizure episodes since last visit, since increase of Lamictal by 50 mg. Notes that she is tolerating this well, no side effects. That since last visit, she was diagnosed with iron deficiency, does receive iron infusions now. No other new diagnoses since last visit. We will continue current dose of rectal, discussed that should patient have recurrence of herseizures, to reach out for further testing including MRI of the brain, EEG. Patient does note that she tried decreasing her Klonopin to 1mg a day instead of 2mg, did experience side effects and had difficulty sleeping. Did refill patient for 30 day supply of Klonopin 2mg. 4. Intention tremor Patient with intention tremor to the bilateral upper extremities, worse on the left. Notes that she has had this her whole life, has not been unchanged. No rigidity on exam, no parkinsonian symptoms. Unsure if it is has certain triggers, unsure if worse with anxiety. Will monitor. Per my last note with pt on 04/26/22: 1. 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 Insomnia, unspecified type - ICD9: 780.52, ICD10: G47.00 3. Stress at home - ICD9: V61.9, ICD10: F43.9 Patient with 2 episodes that might have represented focal seizure or aura. Pt does not endorse med non-compliance. Possible lowering of seizure threshold due to poor sleep associated with an additional exacerbating factor of stress at home. Discussed with patient and will increase Lamictal from 50mg BID to 50mg in AM and 100mg in PM x2 weeks followed by an additional increase to 100mg BID. SE and ADRs reviewed with pt. Will continue Klonopin 2mg QHS as previously Rx'd. Note that Lamictal may also help with stress and sleep with it also being a mood stabilizer. Will check Lamictal level. Follow up with Joey Garcia CNP in ~8 weeks Patient feels doing fine. Pt does not recall the last time she had a sense of aura or seizure (since I last saw pt). No side effects on Lamictal. Still not sleeping well. Taking long time to fall asleep unless takes a Tylenol PM and having more pain at night due to other conditions. Describes as joint pain. Feels POTS has been well controlled - on atenolol with Dr. Glaser. Energy poor during the day. No s/s to suggest FANNIE. Pt is on Klonopin 2mg at bedtime and feels getting tired as result but also feels body getting used to it. No racing thoughts during the night. Falls asleep about 930PM with pt getting into bed about 8PM. Takes meds about 7PM. Still feels tired in the AM, but never wakes fully refreshed. Following with Dr. Rehman for Fe deficiency - notes that it helped with regards to not feeling out of breath. REVIEW OF SYSTEMS GENERAL:No weight loss, malaise or fevers. HEENT:Negative for frequent or significant headaches, No changes in hearing or vision, no nose bleeds or other nasal problems NECK:Negative for lumps, goiter, pain and significant neck swelling RESPIRATORY: Negative for cough, wheezing or shortness of breath. CARDIOVASCULAR: Negative for chest pain, leg swelling or palpitations. GASTROINTESTINAL: Negative for abdominal discomfort, blood in stools or black stools or change in bowel habits GENITOURINARY: No history of dysuria, frequency or incontinence MUSCULOSKELETAL: Negative for joint pain or swelling, back pain or muscle pain. NEUROLOGIC:Negative for focal numbness or weakness, headaches and dizziness or syncope, vision changes, speech/languag changes - EXCEPT that as per HPI above. SKIN:Negative for lesions, rash, and itching. PSYCHIATRIC: Negative for sleep disturbance, mood disorder and recent psychosocial stressors. HEMATOLOGIC/LYMPHATIC/IMMUNOLOGIC: Negative for prolonged bleeding, bruising easily or swollen nodes. ENDOCRINE: Negative for cold or heat intolerance, polyuria, polydipsia and goiter. The remainder of the ROS was reviewed and is negative. LAB/IMAGING: Those performed since patient's last visit have been reviewed. WBC (k/uL) Date Value 05/19/2023 9.30 RBC (m/uL) Date Value 05/19/2023 4.42 Hemoglobin (g/dL) Date Value 05/19/2023 13.1 Hematocrit (%) Date Value 05/19/2023 39.5 MCV (fL) Date Value 05/19/2023 89.4 MCH (pg) Date Value 05/19/2023 29.6 MCHC (g/dL) Date Value 05/19/2023 33.2 RDW-CV (%) Date Value 08 (more content not included)... [facility] 05-19-2023 Note HNO ID: [id number] Author: Mushtaq Rehman, DO Service: ? Author Type: Physician Type: Progress Notes Filed: 05/19/2023 3:02 PM Note Text: Hematologic problem(s): 1) CHELITA. HPI: The patient is a 43-year-old female with a past medical history significant for hydrocephalus, partial epilepsy, fibromyalgia, POTS, epilepsy, Sjogren's disease, vitamin D deficiency and anemia. Blood Donor: One time when she was in high school. Menses: Regular menses. Typically last about 7 days. Can pass clots. Cycles regular about monthly. Has tried different medications to slow menses, but none have worked. History of colonoscopy/EGD: No. Trial of oral iron: Has tried oral iron at least 3 different times in the past. All cause vomiting. Has also tried MVI with iron and that too caused vomiting. Didn't eat beef because many foods macrina beef trigger diarrhea. RA has been ruled out. Diagnosed with Carmen-Danlos--hypermobile EDS. Has routine cardiology monitoring to assess if develops hypervascular EDS. Echo at [facility]. Valves normal. LVEF normal. PFO. Presents for ongoing hematologic management. Interim history: Received iron sucrose x10 doses. Had colonoscopy/EGD 04/02. Non-bleeding internal hemorrhoids. No colonic mucosal abnormalities. Pathology: A. Stomach, antrum, biopsy: - Chronic inactive antral gastritis. - Immunohistochemistry for Helicobacter pylori will be reported in an addendum. B. Esophagogastric junction, biopsy: - Squamous epithelium with no significant diagnostic alteration. - Inflamed gastric cardia-type mucosa. - No evidence of intestinal metaplasia or dysplasia. H. pylori was positive. Was treated. Iron helped with stamina-- I didn't realize how bad I was. Menses. normal. --Typically last about 7 days. Can pass clots. Cycles regular about monthly. PMH, medications and allergies personally reviewed by me today. Any changes documented in appropriate section. Social History Tobacco Use Smoking status: Never Smokeless tobacco: Never Vaping Use Vaping Use: Never used Substance Use Topics Alcohol use: No Drug use: No Family history: Sister age 25--Melanoma of the ear treated with surgery. Both GMs of ovarian cancer. MGM was in her 50-60s and PGM was 77. PGM--Prostate caner. ROS: Constitutional: Denies episodes of fever and night sweats. Normal appetite. Neuro: Denies WOLFF, vertigo, dizziness and imbalance. HEENT: No recent change in voice, vision or hearing. Resp: Denies cough, wheeze and hemoptysis. Denies shortness of breath at rest. Denies TYLER. CVS: Denies exertional chest pain, PND, orthopnea and LE edema. Hypotensive episodes can occur in any position. Can get sensation of tachycardia when gets orthostatic. Raynaud's. GI: Dysphagia for dry foods (Sjogren's)--chronic. Denies odynophagia. Lot of foods can cause diarrhea. : Denies dysuria or gross hematuria. No symptoms of bladder outlet obstruction. Endo: Denies hot flashes. Denies polyuria and polydipsia. Denies heat and cold intolerance. Musculoskeletal: Global joint pain. Derm: Denies rash. Denies jaundice and diffuse pruritis. Heme: Denies unusual bleeding and unexplained bruising. Psych: Normal mood. PHYSICAL EXAM: Vitals: Blood pressure 114/76, pulse 74, temperature 37.3 ?C (99.1 ?F), height 160 cm (5' 2.99 ), weight 64 kg (141 lb), last menstrual period 03/03/2023, SpO2 100 %. Well-appearing and in no acute distress. EYES: Sclerae are anicteric bilaterally. RESPIRATORY: Inspiratory breath sounds are of normal intensity in all xiong. No rales, wheezes or rhonchi. CARDIOVASCULAR: Rhythm is regular, ABDOMEN: The abdomen is nondistended. Extremities: No swelling or edema. SKIN: No jaundice. NEUROLOGIC: width stripper II-XII are grossly intact. No focal motor weakness. MUSCULOSKELETAL: Hyperextensive elbows. ASSESSMENT/PLAN: (D50.9) Iron deficiency anemia, unspecified iron deficiency anemia type (primary encounter diagnosis) Assessment: -CHELITA longstanding likely secondary to decreased absorption and menorrhagia. -Family h/o significant for maternal and paternal GMs with ovarian cancer. -Intolerant to PO iron. -H. pylori may have contributed to malabsorption. -Reviewed labs. Nice response to parenteral iron. -May need again at some point. Plan: -Continue monitoring CBC/Iron. Recheck 6 months. -Referral to genetic counseling based on family h/o ovarian cancer and personal h/o EDS. Portions of this documentation were copied and pasted from previous office visit notes in order to provide a cohesive continuity of the history. The note has been reviewed and edited and updated as necessary. I spent a total of 20 minutes on the date of the service which included preparing to see the patient, [id number] patient care, completing clinical documentation, obtaining and/or reviewing separately obtained history, performing a medically appropriate examination, counse (more content not included)... [facility] 05-19-2023 History of Present illness Narrative Hematologic problem(s): 1) CHELITA. HPI: The patient is a 43-year-old female with a past medical history significant for hydrocephalus, partial epilepsy, fibromyalgia, POTS, epilepsy, Sjogren's disease, vitamin D deficiency and anemia. Blood Donor: One time when she was in high school. Menses: Regular menses. Typically last about 7 days. Can pass clots. Cycles regular about monthly. Has tried different medications to slow menses, but none have worked. History of colonoscopy/EGD: No. Trial of oral iron: Has tried oral iron at least 3 different times in the past. All cause vomiting. Has also tried MVI with iron and that too caused vomiting. Didn't eat beef because many foods macrina beef trigger diarrhea. RA has been ruled out. Diagnosed with Carmen-Danlos--hypermobile EDS. Has routine cardiology monitoring to assess if develops hypervascular EDS. Echo at [facility]. Valves normal. LVEF normal. PFO. Presents for ongoing hematologic management. Interim history: Received iron sucrose x10 doses. Had colonoscopy/EGD 04/02. Non-bleeding internal hemorrhoids. No colonic mucosal abnormalities. Pathology: A. Stomach, antrum, biopsy: - Chronic inactive antral gastritis. - Immunohistochemistry for Helicobacter pylori will be reported in an addendum. B. Esophagogastric junction, biopsy: - Squamous epithelium with no significant diagnostic alteration. - Inflamed gastric cardia-type mucosa. - No evidence of intestinal metaplasia or dysplasia. H. pylori was positive. Was treated. Iron helped with stamina-- I didn't realize how bad I was. Menses. normal. --Typically last about 7 days. Can pass clots. Cycles regular about monthly. PMH, medications and allergies personally reviewed by me today. Any changes documented in appropriate section. Social History Tobacco Use Smoking status: Never Smokeless tobacco: Never Vaping Use Vaping Use: Never used Substance Use Topics Alcohol use: No Drug use: No Family history: Sister age 25--Melanoma of the ear treated with surgery. Both GMs of ovarian cancer. MGM was in her 50-60s and PGM was 77. PGM--Prostate caner. ROS: Constitutional: Denies episodes of fever and night sweats. Normal appetite. Neuro: Denies WOLFF, vertigo, dizziness and imbalance. HEENT: No recent change in voice, vision or hearing. Resp: Denies cough, wheeze and hemoptysis. Denies shortness of breath at rest. Denies TYLER. CVS: Denies exertional chest pain, PND, orthopnea and LE edema. Hypotensive episodes can occur in any position. Can get sensation of tachycardia when gets orthostatic. Raynaud's. GI: Dysphagia for dry foods (Sjogren's)--chronic. Denies odynophagia. Lot of foods can cause diarrhea. : Denies dysuria or gross hematuria. No symptoms of bladder outlet obstruction. Endo: Denies hot flashes. Denies polyuria and polydipsia. Denies heat and cold intolerance. Musculoskeletal: Global joint pain. Derm: Denies rash. Denies jaundice and diffuse pruritis. Heme: Denies unusual bleeding and unexplained bruising. Psych: Normal mood. PHYSICAL EXAM: Vitals: Blood pressure 114/76, pulse 74, temperature 37.3 C (99.1 F), height 160 cm (5' 2.99 ), weight 64 kg (141 lb), last menstrual period 03/03/2023, SpO2 100 %. Well-appearing and in no acute distress. EYES: Sclerae are anicteric bilaterally. RESPIRATORY: Inspiratory breath sounds are of normal intensity in all xiong. No rales, wheezes or rhonchi. CARDIOVASCULAR: Rhythm is regular, ABDOMEN: The abdomen is nondistended. Extremities: No swelling or edema. SKIN: No jaundice. NEUROLOGIC: width stripper II-XII are grossly intact. No focal motor weakness. MUSCULOSKELETAL: Hyperextensive elbows. ASSESSMENT/PLAN: (D50.9) Iron deficiency anemia, unspecified iron deficiency anemia type (primary encounter diagnosis) Assessment: -CHELITA longstanding likely secondary to decreased absorption and menorrhagia. -Family h/o significant for maternal and paternal GMs with ovarian cancer. -Intolerant to PO iron. -H. pylori may have contributed to malabsorption. -Reviewed labs. Nice response to parenteral iron. -May need again at some point. Plan: -Continue monitoring CBC/Iron. Recheck 6 months. -Referral to genetic counseling based on family h/o ovarian cancer and personal h/o EDS. Portions of this documentation were copied and pasted from previous office visit notes in order to provide a cohesive continuity of the history. The note has been reviewed and edited and updated as necessary. I spent a total of 20 minutes on the date of the service which included preparing to see the patient, [id number] patient care, completing clinical documentation, obtaining and/or reviewing separately obtained history, performing a medically appropriate examination, counseling and educating the patient/family/caregiver, communicating with other HCPs (not separately reported), and communicating results to the patient/family/caregiver. Mushtaq Rehman DO documented in this encounter [facility] 05-08-2023 Miscellaneous Notes Klonopin refill sent. PDMP website checked and validated. All prescriptions have been APPROPRIATELY filled. No suspicious activity was identified. 05/08/2023 by Alexandria Urban PA-C Patient stopped into [facility] office today requesting a refill of Klonopin. Please advise. Patient has been identified by name and date of : Yes Patient phones for refill(s): Requested Prescriptions Pending Prescriptions Disp Refills clonazePAM (KLONOPIN) 2 mg tablet 30 tablet 0 Sig: Take 1 tablet by mouth daily at bedtime for 30 days. Date of last office visit in primary care: ANNITA 12/03/22 with MANNY NOV 06/06/23 with SCOTT ARIZA Notes: ASSESSMENT/PLAN: 1. 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 Insomnia, unspecified type - ICD9: 780.52, ICD10: G47.00 3. Focal seizure (HCC) - ICD9: 780.39, ICD10: R56.9 Patient doing well, states that she has not had recurrence of her seizure episodes since last visit, since increase of Lamictal by 50 mg. Notes that she is tolerating this well, no side effects. That since last visit, she was diagnosed with iron deficiency, does receive iron infusions now. No other new diagnoses since last visit. We will continue current dose of rectal, discussed that should patient have recurrence of herseizures, to reach out for further testing including MRI of the brain, EEG. Patient does note that she tried decreasing her Klonopin to 1mg a day instead of 2mg, did experience side effects and had difficulty sleeping. Did refill patient for 30 day supply of Klonopin 2mg. 4. Intention tremor Patient with intention tremor to the bilateral upper extremities, worse on the left. Notes that she has had this her whole life, has not been unchanged. No rigidity on exam, no parkinsonian symptoms. Unsure if it is has certain triggers, unsure if worse with anxiety. Will monitor. Patient otherwise doing well, stable. We will follow-up in 6 months or sooner should any symptoms change or worsen. Patient agreeable to treatment plan of care at this time. Last 2 Encounter Wt Readings: Date: Wt: 04/28/2023 64.4 kg (142 lb) 04/02/2023 64.9 kg (143 lb) Please advise. Thank you. SIOMARA Jacobson documented in this encounter [facility] 04-28-2023 Note HNO ID: [id number] Author: Mei Warner PA-C Service: ? Author Type: Physician Residential Roofer Type: Progress Notes Filed: 04/28/2023 2:35 PM Note Text: FOLLOW UP VISIT - ENDOSCOPY NAME: Amberly [facility] NO.: [id number] DATE OF SERVICE: 04/28/2023 : 1980 REFERRING PHYSICIAN: Bobo Rodriguez, Amberly is a patient I am following for iron deficiency anemia as well as some intermittent loose stools. Dr. ledezma performed upper and lower endoscopy on 04/02/23. The patient was found to have erythematous mucosa of the antrum on EGD and an irregular Z-line, with normal appearing duodenum. Colonoscopy showed non-bleeding internal hemorrhoids, with otherwise normal colonoscopy. Pathology demonstrated: FINAL DIAGNOSIS A. Stomach, antrum, biopsy: - Chronic inactive antral gastritis. - Immunohistochemistry for Helicobacter pylori will be reported in an addendum. B. Esophagogastric junction, biopsy: - Squamous epithelium with no significant diagnostic alteration. - Inflamed gastric cardia-type mucosa. - No evidence of intestinal metaplasia or dysplasia. Gross Description A. ANTRUM (STOMACH) BIOPSY Received in formalin is one piece of buchanan, soft tissue measuring 0.4 x 0.3 x 0.1 cm. Totally submitted in one cassette. B. ESOPHAGOGASTRIC JUNCTION BIOPSY Received in formalin are two pieces of buchanan, soft tissue aggregating to 0.3 x 0.3 x 0.1 cm. Totally submitted in one cassette. April 02, 2023 3:12 PM Gross examination performed at [facility], [facility] [id number] Performing Lab Diagnostic interpretation performed at [facility], [facility] [place] [id number] CLIA# [id number] Herd Tester: Joss H. Henricks, M.D. Addendum This addendum is issued to report the results of immunohistochemical stains. The original diagnoses remain unchanged. Immunohistochemical stain for Helicobacter pylori performed on the gastric biopsy is positive for organisms (Block A1). The patient notes no new complaints since the procedure. Does note gets some intermittent swallowing and food sticking issues worse with breads x last few months. VITALS: Blood pressure 114/70, pulse 87, temperature 36.8 ?C (98.2 ?F), height 160 cm (5' 3 ), weight 64.4 kg (142 lb), last menstrual period 03/03/2023, SpO2 98 %. General: patient is alert, cooperative, pleasant and in no acute distress On examination, the abdomen is benign. Assessment IMPRESSION: H. Pylori gastritis. Normal colonoscopy. C/o intermittent dysphagia PLAN: The operative findings and pathology report were reviewed with the patient, and the patient has had the opportunity to ask questions and have questions answered. If the patient notes any problems or changes in bowel function, the patient should contact me immediately. Otherwise I recommend follow up colonoscopy in 10 years. -Begin Prevpac. Reviewed treatment rationale, common side effects, importance of completing all doses -Consider continuing on a PPI (such as the pantoprazole) short-term for 1 month following completion of prevpac -If dysphagia complaints persist, would plan for referral to esophageal specialist for further evaluation -In 6-8 weeks, stop by lab to submit stool specimen to ensure H. Pylori infection has been cleared with treatment Patient verbalized understanding of all above and agreed with the plan Diagnoses: (K29.70, B96.81) Helicobacter pylori gastritis (primary encounter diagnosis) (R13.10) Dysphagia, unspecified type I spent a total of 26 minutes on the date of the service which included preparing to see the patient, [id number] patient care, completing clinical documentation, obtaining and/or reviewing separately obtained history, counseling and educating the patient/family/caregiver, ordering medications, tests, or procedures, independently interpreting results (not separately reported), and communicating results to the patient/family/caregiver. Mei Warner PA-C [facility] 04-28-2023 Instructions Mei Warner PA-C - 04/28/2023 1:59 PM EDT -Begin Prevpac -Consider continuing on a PPI (such as the pantoprazole) short-term for 1 month following completion of prevpac -If dysphagia complaints persist, would plan for referral to esophageal specialist for further evaluation -In 6-8 weeks, stop by lab to submit stool specimen to ensure H. Pylori infection has been cleared with treatment The following instructions are important for you related to your office visit today with the [facility]. INSTRUCTIONS FOLLOWING A NORMAL COLONOSCOPY 10YR I discussed with you the findings of your colonoscopy. Since there were no worrisome abnormalities, I recommend you undergo repeat endoscopic screening every 10 years. This is the current recommendation for colon cancer screening. If you note bleeding, change in bowel habits, or other suspicious colon related symptoms before that time, those symptoms should be evaluated as necessary. INSTRUCTIONS FOR PEPTIC ULCER DISEASE/GASTRITIS - H PYLORI POSITIVE I discussed with you the findings of your upper endoscopy. Your upper endoscopy demonstrated signs of peptic ulcer disease or irritation. This can be seen as a range of issues from actual ulcers in the stomach or duodenum (first part of the small bowel) or irritation ranging from redness to more significant irritation with erosions of the stomach or duodenum. Your gastric biopsy demonstrated that your stomach has the H. Pylori bacteria. H. Pylori bacteria have been show to cause ulcers and gastritis. You will be given medications to eradicate that bacteria. The most common prescription is called the Prevpac. Prevpac is a combination of antibiotics and stomach medications used to treat Helicobacter pylori infections associated with ulcers. Each daily administration pack contains a single day's dose of medications. There are morning and evening doses. If you are allergic to any of the medications, different combinations can be prescribed. These medications are usually given for 10-14 days. After that time, the antibiotics are stopped, but the proton pump inhibitor (PPI)... Prevacid, prilosec, nexium or the like, are continued. Peptic ulcer disease or gastritis is also effected by the following factors caused from a combination of too much acid production or too little protective mucus production in the stomach. Factors that increase acid production include smoking and stress. If you smoke, stopping smoking will often cure these issues without needing other medications. Factors that decrease the stomach's production of protective mucus include alcohol consumption, smoking, aspirin and other anti-inflammatory use. Over the counter medications including antiacids and acid reducing medications including H2 blockers (Zantac and the like) and proton pump inhibitors (prilosec, prevacid and the like) neutralize or prevent acid production. Prescription strength proton pump inhibitors (PPIs) may be necessary if your symptoms persist. Carafate may be added to PPI treatment in refractory cases. Avoiding smoking, alcohol and antiinflammatory medications are important in the successful treatment of peptic diseases. New or worsening symptoms such are epigastric pain, burning, difficulty swallowing or food sticking should be relayed to your physician. Feeling full early after eating, or black, tarry, foul smelling stools are also worrisome. If you have any difficulties or concerns, you should contact our office immediately. If you note any additional difficulties, questions, or concerns, you should contact our office immediately @ [phone] and ask to be transferred to the General Surgery department. documented in this encounter [facility] 04-28-2023 History of Present illness Narrative FOLLOW UP VISIT - ENDOSCOPY NAME: Amberly [facility] NO.: [id number] DATE OF SERVICE: 04/28/2023 : 1980 REFERRING PHYSICIAN: Bobo Rodriguez, Amberly is a patient I am following for iron deficiency anemia as well as some intermittent loose stools. Dr. ledezma performed upper and lower endoscopy on 04/02/23. The patient was found to have erythematous mucosa of the antrum on EGD and an irregular Z-line, with normal appearing duodenum. Colonoscopy showed non-bleeding internal hemorrhoids, with otherwise normal colonoscopy. Pathology demonstrated: FINAL DIAGNOSIS A. Stomach, antrum, biopsy: - Chronic inactive antral gastritis. - Immunohistochemistry for Helicobacter pylori will be reported in an addendum. B. Esophagogastric junction, biopsy: - Squamous epithelium with no significant diagnostic alteration. - Inflamed gastric cardia-type mucosa. - No evidence of intestinal metaplasia or dysplasia. Gross Description A. ANTRUM (STOMACH) BIOPSY Received in formalin is one piece of buchanan, soft tissue measuring 0.4 x 0.3 x 0.1 cm. Totally submitted in one cassette. B. ESOPHAGOGASTRIC JUNCTION BIOPSY Received in formalin are two pieces of buchanan, soft tissue aggregating to 0.3 x 0.3 x 0.1 cm. Totally submitted in one cassette. CL April 02, 2023 3:12 PM Gross examination performed at [facility], [facility] [place] [id number] Performing Lab Diagnostic interpretation performed at [facility], [facility] [place] [id number] [facility]# [id number] Herd Tester: Joss Thomas M.D. Addendum This addendum is issued to report the results of immunohistochemical stains. The original diagnoses remain unchanged. Immunohistochemical stain for Helicobacter pylori performed on the gastric biopsy is positive for organisms (Block A1). The patient notes no new complaints since the procedure. Does note gets some intermittent swallowing and food sticking issues worse with breads x last few months. VITALS: Blood pressure 114/70, pulse 87, temperature 36.8 C (98.2 F), height 160 cm (5' 3 ), weight 64.4 kg (142 lb), last menstrual period 03/03/2023, SpO2 98 %. General: patient is alert, cooperative, pleasant and in no acute distress On examination, the abdomen is benign. Assessment IMPRESSION: H. Pylori gastritis. Normal colonoscopy. C/o intermittent dysphagia PLAN: The operative findings and pathology report were reviewed with the patient, and the patient has had the opportunity to ask questions and have questions answered. If the patient notes any problems or changes in bowel function, the patient should contact me immediately. Otherwise I recommend follow up colonoscopy in 10 years. -Begin Prevpac. Reviewed treatment rationale, common side effects, importance of completing all doses -Consider continuing on a PPI (such as the pantoprazole) short-term for 1 month following completion of prevpac -If dysphagia complaints persist, would plan for referral to esophageal specialist for further evaluation -In 6-8 weeks, stop by lab to submit stool specimen to ensure H. Pylori infection has been cleared with treatment Patient verbalized understanding of all above and agreed with the plan Diagnoses: (K29.70, B96.81) Helicobacter pylori gastritis (primary encounter diagnosis) (R13.10) Dysphagia, unspecified type I spent a total of 26 minutes on the date of the service which included preparing to see the patient, [id number] patient care, completing clinical documentation, obtaining and/or reviewing separately obtained history, counseling and educating the patient/family/caregiver, ordering medications, tests, or procedures, independently interpreting results (not separately reported), and communicating results to the patient/family/caregiver. Mei Warner PA-C documented in this encounter [facility] 03-06-2023 Miscellaneous Notes We will refill patient's benzodiazepine prescription for partial epilepsy and insomnia. PDMP website checked and validated. All prescriptions have been APPROPRIATELY filled. No suspicious activity was identified. 03/06/2023 by Alexandria Urban PA-C Patient phones requesting refills as follows: Requested Prescriptions Pending Prescriptions Disp Refills clonazePAM (KLONOPIN) 2 mg tablet 30 tablet 0 Sig: Take 1 tablet by mouth daily at bedtime for 30 days. Pt is asking if she can have refills on this med so she doesn't have to call in every month to request. ANNITA: 12/03/22 NOV: 06/06/23 Last Refill: 02/04/23 #30 0 refills Beckie Le LPN documented in this encounter [facility] 01-03-2023 Miscellaneous Notes Refill sent to the pharmacy. Pt notified via [employer]. Fe Rodriguez LPN ANNITA 12/03/22 with MQ NOV 06/06/23 with WN Assessment and Plan: ASSESSMENT/PLAN: 1. 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 Insomnia, unspecified type - ICD9: 780.52, ICD10: G47.00 3. Focal seizure (HCC) - ICD9: 780.39, ICD10: R56.9 Patient doing well, states that she has not had recurrence of her seizure episodes since last visit, since increase of Lamictal by 50 mg. Notes that she is tolerating this well, no side effects. That since last visit, she was diagnosed with iron deficiency, does receive iron infusions now. No other new diagnoses since last visit. We will continue current dose of rectal, discussed that should patient have recurrence of herseizures, to reach out for further testing including MRI of the brain, EEG. Patient does note that she tried decreasing her Klonopin to 1mg a day instead of 2mg, did experience side effects and had difficulty sleeping. Did refill patient for 30 day supply of Klonopin 2mg. 4. Intention tremor Patient with intention tremor to the bilateral upper extremities, worse on the left. Notes that she has had this her whole life, has not been unchanged. No rigidity on exam, no parkinsonian symptoms. Unsure if it is has certain triggers, unsure if worse with anxiety. Will monitor. Patient otherwise doing well, stable. We will follow-up in 6 months or sooner should any symptoms change or worsen. Patient agreeable to treatment plan of care at this time. Please advise. Thank you. FLORENCIO Jacobson Patient phones requesting refills as follows: Requested Prescriptions Pending Prescriptions Disp Refills clonazePAM (KLONOPIN) 2 mg tablet 30 tablet 0 Sig: Take 1 tablet by mouth daily at bedtime for 30 days. ANNITA: 12/03/22 NOV: 06/06/23 Last Refill: 12/03/22 #30 0 refills Pt states she only has 1.5 pills left Beckie Le LPN documented in this encounter [facility] 12-17-2022 Miscellaneous Notes Pt. Notified blood counts and iron levels are doing much better following iron sucrose. Keep appointments for EGD/colonoscopy. Dr. Rehman Highly recommends she see gynecology. Follow-up here as scheduled. Pt. Voiced understanding. Fabienne Ambrosio LPN Her blood counts and iron levels are doing much better following iron sucrose. Keep appointments for EGD/colonoscopy. Highly recommend she see gynecology. Follow-up here as scheduled. Mushtaq Rehman DO documented in this encounter [facility] 12-11-2022 Miscellaneous Notes Last refill 07/31/22 180 tablets 1 refill ASSESSMENT/PLAN: 1. 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 Insomnia, unspecified type - ICD9: 780.52, ICD10: G47.00 3. Focal seizure (HCC) - ICD9: 780.39, ICD10: R56.9 Patient doing well, states that she has not had recurrence of her seizure episodes since last visit, since increase of Lamictal by 50 mg. Notes that she is tolerating this well, no side effects. That since last visit, she was diagnosed with iron deficiency, does receive iron infusions now. No other new diagnoses since last visit. We will continue current dose of rectal, discussed that should patient have recurrence of herseizures, to reach out for further testing including MRI of the brain, EEG. Patient does note that she tried decreasing her Klonopin to 1mg a day instead of 2mg, did experience side effects and had difficulty sleeping. Did refill patient for 30 day supply of Klonopin 2mg. 4. Intention tremor Patient with intention tremor to the bilateral upper extremities, worse on the left. Notes that she has had this her whole life, has not been unchanged. No rigidity on exam, no parkinsonian symptoms. Unsure if it is has certain triggers, unsure if worse with anxiety. Will monitor. Patient otherwise doing well, stable. We will follow-up in 6 months or sooner should any symptoms change or worsen. Patient agreeable to treatment plan of care at this time. Alexandria Urban PA-C Last Office Visit: 12/03/2022 Future Office Visit: 06/06/2023 Requested Prescriptions Pending Prescriptions Disp Refills lamoTRIgine (LAMICTAL) 100 mg tablet 180 tablet 1 Si tablet in AM and 1 tablet in PM. Date of Last Labs: 11/28/2022 documented in this encounter [facility] 12-03-2022 Instructions Alexandria Urban PA-C - 12/03/2022 11:55 AM EST Follow up in 6 months or sooner should anything change or worsen documented in this encounter [facility] 12-03-2022 History of Present illness Narrative ESTABLISHED PATIENT VISIT Last visit: Dr. Petersen 04/26/22 Assessment and Plan: ASSESSMENT/PLAN: 1. 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 Insomnia, unspecified type - ICD9: 780.52, ICD10: G47.00 3. Stress at home - ICD9: V61.9, ICD10: F43.9 Patient with 2 episodes that might have represented focal seizure or aura. Pt does not endorse med non-compliance. Possible lowering of seizure threshold due to poor sleep associated with an additional exacerbating factor of stress at home. Discussed with patient and will increase Lamictal from 50mg BID to 50mg in AM and 100mg in PM x2 weeks followed by an additional increase to 100mg BID. SE and ADRs reviewed with pt. Will continue Klonopin 2mg QHS as previously Rx'd. Note that Lamictal may also help with stress and sleep with it also being a mood stabilizer. Will check Lamictal level. Follow up with Joey Garcia CNP in ~8 weeks. Note also discussed with patient repeating MRI brain to confirm no changes given possible breakthrough seizure. However patient declines at this time. CHIEF COMPLAINT: follow up HISTORY OF PRESENT ILLNESS: Amberly Galvin is a 42 year old female, BMI 25.33 kg/m2 with a PMH significant for partial epilepsy, communicating hydrocephalus, POTS, anemia, Sjogrens, RA, depression, vitamin D deficiency. Patient had increase of Lamictal by 50mg daily due to having two episodes of possible focal seizure, patient attributed to stress. Patient also on Klonopin 2mg daily. Patient was instructed to follow up in 8 weeks, did not do so. Last Lamictal level was 1.9 on 04/26/22. Patient was offered MRI brain at last appointment, declined this. Last MRI was stable at [facility] in 2020. Patient states that she has not had recurrence of any seizure-like activity since last visit. Has tolerated the increase in Lamictal well, no side effects. Notes that her typical seizure event includes waking up in the middle the night, seeing silhouettes including personal animal, feeling out of it, with following severe fatigue. This usually lasts for about a minute, has been confirmed with at home epilepsy monitoring. Denies any family history of seizures, no febrile seizure as a child, only 1 head injury as a teen, but she thinks her seizures predated this. She has never had an episode during the day, only at night. No family history of brain tumors or aneurysm. 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 Denies any falls, new symptoms since last visit. Does note that she tried to decrease her benzodiazepine dose in half, but states that she was having severe trouble sleeping. REVIEW OF SYSTEMS GENERAL:No weight loss, malaise or fevers. HEENT:Negative for frequent or significant headaches, No changes in hearing or vision, no nose bleeds or other nasal problems NECK:Negative for lumps, goiter, pain and significant neck swelling RESPIRATORY: Negative for cough, wheezing or shortness of breath. CARDIOVASCULAR: Negative for chest pain, leg swelling or palpitations. GASTROINTESTINAL: Negative for abdominal discomfort, blood in stools or black stools or change in bowel habits GENITOURINARY: No history of dysuria, frequency or incontinence MUSCULOSKELETAL: Negative for joint pain or swelling, back pain or muscle pain. NEUROLOGIC:Negative for focal numbness or weakness, headaches and dizziness or syncope, vision changes, speech/languag changes - EXCEPT that as per HPI above. SKIN:Negative for lesions, rash, and itching. PSYCHIATRIC: Negative for sleep disturbance, mood disorder and recent psychosocial stressors. HEMATOLOGIC/LYMPHATIC/IMMUNOLOGIC: Negative for prolonged bleeding, bruising easily or swollen nodes. ENDOCRINE: Negative for cold or heat intolerance, polyuria, polydipsia and goiter. The remainder of the ROS was reviewed and is negative. LAB/IMAGING: Those performed since patient's last visit have been reviewed. Lamictal level 1.9 MEDICATIONS: clonazePAM (KLONOPIN) 2 mg tablet Take 1 tablet by mouth daily at bedtime for 90 days. cholecalciferol, Vitamin D3, (VITAMIN D3) 1,250 mcg (50,000 unit) cap capsule Take 1 capsule by mouth one time a week. lamoTRIgine (LAMICTAL) 100 mg tablet 1 tablet in AM and 1 tablet in PM. cetirizine HCl (ZYRTEC ORAL) Take 1 tablet by mouth once daily. acetaminophen/diphenhydramine (TYLENOL PM EXTRA STRENGTH ORAL) Take 1 tablet by mouth daily at bedtime. atenolol (TENORMIN) 25 mg tablet Take 1 tablet by mouth once daily. HISTORIES PAST MEDICAL HISTORY Diagnosis Date Communicating hydrocephalus (HCC) Depression Epilepsy (HCC) Hypertension Iron deficiency anemia PMH - PAST MEDICAL HISTORY OF 2004 fibromyalgia PMH - PAST MEDICAL HISTORY OF Mitral valve prolapse POTS (postural orthostatic tachycardia syndrome) Rheumatoid arthritis, adult (HCC) Sjogren's syndrome (HCC) Vitamin D deficiency FAMILY HISTORY Problem Relation Age of Onset Cervical Cancer Mother Hypertension Father other (mvp) Father Asthma Sister Cervical Cancer Sister Melanoma Sister Cancer Maternal Grandmother ovarian cancer COPD Paternal Grandmother ovarian cancer Cancer Paternal Grandfather prostate SOCIAL HISTORY Social History Tobacco Use Smoking status: Never Smokeless tobacco: Never Vaping Use Vaping Use: Never used Substance Use Topics Alcohol use: No Drug use: No PHYSICAL EXAMINATION BP 121/83 Pulse 69 Temp 36.8 C (98.3 F) Resp 16 Wt 64.9 kg (143 lb) LMP 04/22/2022 (Exact Date) SpO2 100% BMI 25.33 kg/m GENERAL EXAM: General appearance: NAD, pleasant. HEENT: NC/AT, nasal congestion absent, no oral lesions, membranes moist. NECK: No masses, supple. Lungs: Breathing comfortably Extr: Moves all extremities without difficulty MSK: Patient can hyperextend thumb and upper extremities bilaterally Skin: Cool to touch. No rash. NEUROLOGICAL EXAM: General: Awake, alert, oriented x3 (person,place,time), speech fluent, no dysarthria; comprehension, naming, repetition intact. Short and skilled nursing memory intact. CN: PERRL, EOMI and without nystagmus, VFF to confrontation, facial sensation and strength are normal and symmetric, hearing is intact to finger rub bilaterally, palate and tongue movements are intact and symmetric. SCM and trapezius strength normal. Motor: Normal tone, bulk and strength (5/5) bilaterally (throughout extremities x4). Reflexes: 2/4 and symmetric, plantar stimulation is flexor. Coordination: FNF intact. Intention tremor, worse on the left (notes this is chronic her whole life) Sensation: No evidence of neglect. Gait: Narrow based and stable with normal stride and arm swing. Assessment and Plan: ASSESSMENT/PLAN: 1. 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 Insomnia, unspecified type - ICD9: 780.52, ICD10: G47.00 3. Focal seizure (HCC) - ICD9: 780.39, ICD10: R56.9 Patient doing well, states that she has not had recurrence of her seizure episodes since last visit, since increase of Lamictal by 50 mg. Notes that she is tolerating this well, no side effects. That since last visit, she was diagnosed with iron deficiency, does receive iron infusions now. No other new diagnoses since last visit. We will continue current dose of rectal, discussed that should patient have recurrence of herseizures, to reach out for further testing including MRI of the brain, EEG. Patient does note that she tried decreasing her Klonopin to 1mg a day instead of 2mg, did experience side effects and had difficulty sleeping. Did refill patient for 30 day supply of Klonopin 2mg. 4. Intention tremor Patient with intention tremor to the bilateral upper extremities, worse on the left. Notes that she has had this her whole life, has not been unchanged. No rigidity on exam, no parkinsonian symptoms. Unsure if it is has certain triggers, unsure if worse with anxiety. Will monitor. Patient otherwise doing well, stable. We will follow-up in 6 months or sooner should any symptoms change or worsen. Patient agreeable to treatment plan of care at this time. Alexandria Urban PA-C I spent a total of 30 minutes on the date of the service which included preparing to see the patient, [id number] patient care, completing clinical documentation, obtaining and/or reviewing separately obtained history, performing a medically appropriate examination, counseling and educating the patient/family/caregiver, and ordering medications, tests, or procedures. This document has been created with the use of voice recognition technology. It may contain inaccuracies: (e.g. misspellings, inaccurate syntax or word sense) that have escaped review. [facility] website checked and validated. All prescriptions have been APPROPRIATELY filled. No suspicious activity was identified. 12/03/2022 by Alexandria Urban PA-C documented in this encounter [facility] 11-29-2022 Miscellaneous Notes Patient notified needing appointment. R/S neuro f/u with MQ on 12/03/22 @ 11:30 AM. Neelima Albarado MA Patient calling said she kept forgetting to call office back. She has been busy with the iron infusions. Patient said she has had appt scheduled with Joey Garcia NP for the end of November for quite some time. Patient said she has 2 and one half pills left of her Clonazepam right now. Patient asking for refill on rx. Please advise Patient has been identified by name and date of : Patient phones for refill(s): Requested Prescriptions Pending Prescriptions Disp Refills clonazePAM (KLONOPIN) 2 mg tablet 30 tablet 0 Sig: Take 1 tablet by mouth daily at bedtime for 90 days. Date of last office visit in primary care: 04/26/2022, has appt 12/26/2022 Last 2 Encounter Wt Readings: Date: Wt: 11/14/2022 65.2 kg (143 lb 12.8 oz) 11/04/2022 65.8 kg (145 lb) Previous labs/tests for medication: Not applicable Please advise. Thank you. Marika Douglas LPN documented in this encounter [facility] 11-21-2022 Nurse Note REVIEW OF SYSTEMS: General: The patient denies fatigue, denies weight loss, denies weight gain, denies feeling hot, and denies feelings of cold. Eyes: The patient denies glaucoma, denies eye injury/surgery, does not wear glasses or contacts. Ear/Nose/Throat: The patient denies allergies, denies hayfever, denies ear infections, and denies bloody noses. Cardiovascular: The patient denies chest pain, NOTES heart disease, NOTES high blood pressure,denies cardiac stent, denies prior heart attack, denies irregular heart beat, denies high cholesterol, denies poor circulation, denies heart failure, other cardiac issues, denies claudication, denies cold feet, denies peripheral arterial stent. Respiratory: The patient denies tuberculosis, denies pneumonia, denies frequent cough, denies pulmonary embolism, denies shortness of breath, and denies coughing up blood. Gastrointestinal: The patient denies difficulty swallowing, denies acid reflux, denies ulcers, denies vomiting, denies jaundice/hepatitis, denies gallbladder problems, denies black or tarry stools, denies hemorrhoids, denies bleeding from rectum, denies diverticulitis, denies constipation, denies diarrhea, denies loss of stool control, and denies hernias. Kidney/Bladder: The patient denies kidney stones, denies urine infections, and denies bloody urine. Skin: The patient denies a history of skin cancer, denies bleeding/changing moles, and denies a history of skin rash. Neurologic: The patient NOTES a history of epilepsy/convulsions, denies headaches, denies head/spinal injuries, and denies stroke/TIA. Psychiatric: The patient denies psychiatric medications, NOTES depression, and denies voices, denies substance abuse. Endocrine: The patient denies thyroid disorders, denies diabetes, and denies hormonal problems. Hematologic: The patient denies a history of bruising, denies bleeding, and NOTES anemia, denies blood clots. Infections: The patient denies a history of measles and mumps, denies rheumatic fever, and denies sexually transmitted diseases. Musculoskeletal: The patient denies back pain/injury, denies back problems, denies sciatica, denies knee/foot trouble, denies arthritis, or denies gout. When was patient's last Mammogram screening? N/A Last Colonoscopy: 10/2022 Brittani Mcmahon LPN documented in this encounter [facility] 11-14-2022 History of Present illness Narrative HISTORY AND PHYSICAL Amberly Galvin 1980 REFERRING PHYSICIAN: Mushtaq Rehman DO CHIEF COMPLAINT: Consult (Iron deficiency anemia) HPI: The patient is a 42 year old female referred for endoscopy. Amberly notes a history of iron deficiency anemia for years. Has tried oral iron supplementation which she is unable to tolerate, is now following with hematology/oncology and starting to receive iron infusions. Patient notes intermittent loose stools which seem to be diet-related per patient. She denies any visible blood in stools or tarry appearing stools. Notes occasional acid reflux in mornings. Denies nausea, vomiting, abdominal pain or hematemesis. Denies family history of colon issues. Amberly has not undergone prior endoscopy. PAST MEDICAL HISTORY Diagnosis Date Communicating hydrocephalus (HCC) Depression Epilepsy (HCC) Hypertension Iron deficiency anemia PMH - PAST MEDICAL HISTORY OF 2004 fibromyalgia PMH - PAST MEDICAL HISTORY OF Mitral valve prolapse POTS (postural orthostatic tachycardia syndrome) Rheumatoid arthritis, adult (HCC) Sjogren's syndrome (HCC) Vitamin D deficiency PAST SURGICAL HISTORY Procedure Laterality Date NONE Current Outpatient Medications Medication Sig clonazePAM (KLONOPIN) 2 mg tablet Take 1 tablet by mouth daily at bedtime for 90 days. cholecalciferol, Vitamin D3, (VITAMIN D3) 1,250 mcg (50,000 unit) cap capsule Take 1 capsule by mouth one time a week. lamoTRIgine (LAMICTAL) 100 mg tablet 1 tablet in AM and 1 tablet in PM. cetirizine HCl (ZYRTEC ORAL) Take 1 tablet by mouth once daily. acetaminophen/diphenhydramine (TYLENOL PM EXTRA STRENGTH ORAL) Take 1 tablet by mouth daily at bedtime. atenolol (TENORMIN) 25 mg tablet Take 1 tablet by mouth once daily. No current facility-administered medications for this visit. ALLERGIES: Acetazolamide, Furosemide, Iodine [Contrast Dye], Keppra [Levetiracetam], Nadolol, Tegretol [Carbamazepine Analogues], and Augmentin [Amoxicillin-Pot Clavulanate] PERSONAL HISTORY: Social History Tobacco Use Smoking status: Never Smokeless tobacco: Never Vaping Use Vaping Use: Never used Substance Use Topics Alcohol use: No Drug use: No FAMILY HISTORY: FAMILY HISTORY Problem Relation Age of Onset Cervical Cancer Mother Hypertension Father other (mvp) Father Asthma Sister Cervical Cancer Sister Melanoma Sister Cancer Maternal Grandmother ovarian cancer COPD Paternal Grandmother ovarian cancer Cancer Paternal Grandfather prostate REVIEW OF SYMPTOMS: The review of systems data was entered by the nurse and reviewed by pr Nursing Notes: Brittani Mcmahon LPN 11/21/2022 12:49 PM Signed REVIEW OF SYSTEMS: General: The patient denies fatigue, denies weight loss, denies weight gain, denies feeling hot, and denies feelings of cold. Eyes: The patient denies glaucoma, denies eye injury/surgery, does not wear glasses or contacts. Ear/Nose/Throat: The patient denies allergies, denies hayfever, denies ear infections, and denies bloody noses. Cardiovascular: The patient denies chest pain, NOTES heart disease, NOTES high blood pressure,denies cardiac stent, denies prior heart attack, denies irregular heart beat, denies high cholesterol, denies poor circulation, denies heart failure, other cardiac issues, denies claudication, denies cold feet, denies peripheral arterial stent. Respiratory: The patient denies tuberculosis, denies pneumonia, denies frequent cough, denies pulmonary embolism, denies shortness of breath, and denies coughing up blood. Gastrointestinal: The patient denies difficulty swallowing, denies acid reflux, denies ulcers, denies vomiting, denies jaundice/hepatitis, denies gallbladder problems, denies black or tarry stools, denies hemorrhoids, denies bleeding from rectum, denies diverticulitis, denies constipation, denies diarrhea, denies loss of stool control, and denies hernias. Kidney/Bladder: The patient denies kidney stones, denies urine infections, and denies bloody urine. Skin: The patient denies a history of skin cancer, denies bleeding/changing moles, and denies a history of skin rash. Neurologic: The patient NOTES a history of epilepsy/convulsions, denies headaches, denies head/spinal injuries, and denies stroke/TIA. Psychiatric: The patient denies psychiatric medications, NOTES depression, and denies voices, denies substance abuse. Endocrine: The patient denies thyroid disorders, denies diabetes, and denies hormonal problems. Hematologic: The patient denies a history of bruising, denies bleeding, and NOTES anemia, denies blood clots. Infections: The patient denies a history of measles and mumps, denies rheumatic fever, and denies sexually transmitted diseases. Musculoskeletal: The patient denies back pain/injury, denies back problems, denies sciatica, denies knee/foot trouble, denies arthritis, or denies gout. When was patient's last Mammogram screening? N/A Last Colonoscopy: 10/2022 Brittani Mcmahon LPN I have confirmed and edited as necessary, the PFSH and ROS obtained by others. Mei Warner PA-C PHYSICAL EXAMINATION: General: The patient is 42 year old female, well nourished, well hydrated in no acute distress. The patient is oriented to time, place, and person. VITALS: Blood pressure 120/78, pulse 109, temperature 37 C (98.6 F), height 160 cm (5' 3 ), weight 65.2 kg (143 lb 12.8 oz), last menstrual period 04/22/2022, SpO2 100 %. Body mass index is 25.47 kg/m . HEENT: Normal cephalic, ataumatic, pupils are equally round, sclera are anicteric, mucous membranes are moist, oropharynx is clear. Neck has no masses, asymmetry or lymphadenopathy. Respiratory: Clear to auscultation and percussion. Normal respiratory excursion and pattern. Cardiac: Examination is regular rate and rhythm. Normal S1/S2 Abdominal exam: Soft, nontender, with no palpable masses. No hepatosplenomegaly. No palpable hernias. Extremities: no clubbing, cyanosis or edema. No adenopathy. LABORATORY VALUES: As Noted RADIOLOGIC STUDIES: As Noted Assessment IMPRESSION: iron deficiency anemia. diarrhea PLAN: I have reviewed my findings with the surgeon. Will plan for EGD as well as a colonoscopy with random biopsies. We discussed the risks and benefits of the planned endoscopy. I have informed the patient that complications can occur including failure to complete the endoscopy and perforation. The patient had the opportunity to ask questions concerning the planned endoscopy. My staff has also explained the procedure to the patient in understandable terms and has given the patient printed material concerning the procedure. The patient freely consents to surgery. The patient was offered a surgery/procedure at a [facility] facility. I have counseled the patient regarding the risk of exposure to and/or potential harm posed by the COVID-19 virus with having a surgery/procedure at this time versus the risk of delaying the surgery/procedure. It is not possible to know either the risk of delaying the surgery or procedure or chance of getting an infection with perfect accuracy, but a joint decision was made between the patient and myself to proceed at this time with endoscopy. I plan to use Miralax/dulcolax bowel preparation The patient takes prescription medications which I feel decrease the chance of successful sedation, therefore we will plan for procedure to be done under [facility]. 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 Rehman for an opinion regarding iron deficiency anemia. My final recommendations will be communicated back to the requesting physician by way of shared Medical record or letter to requesting physician via US mail. Mei Warner PA-C documented in this encounter [facility] 11-13-2022 Miscellaneous Notes This is a 1st-time treatment report for this patient. The patient is being seen for a non-cancer related diagnosis of Anemia. This is a Non-Oncology regimen. The drug being used is Venofer. There is no assistance available for insured patients. No Financial Navigator assessment is needed at this time. I did give the patient my contact information should anything in the future change and they need help. documented in this encounter [facility] 11-08-2022 Miscellaneous Notes November 11, 2022 PID: [id number] Amberly Galvin [address], [place] [id number] Dear Ms. Galvin, We are pleased to inform you that the results of your recent breast imaging exam on 11/07/2022 are normal. Your mammogram demonstrates that you have dense breast tissue, which could hide abnormalities. Dense breast tissue, in and of itself, is a relatively common condition. Therefore, this information is not provided to cause undue concern; rather, it is to raise your awareness and promote discussion with your health care provider regarding the presence of dense breast tissue in addition to other risk factors. Early detection of cancer is very important. We also understand recommendations regarding breast cancer screening are controversial. Please discuss with your primary care provider which strategy is best for you and whether a mammogram is right for you. Your imaging studies and report will be kept on file at [facility] as part of your permanent medical record and are available for your continuing care. Thank you for allowing us to help in meeting your health care needs. Sincerely, Dr. Joe Interpreting Radiologist [facility] (Normal over 40) documented in this encounter [facility] 11-06-2022 Miscellaneous Notes Spoke with pt and scheduled gI consult as directed below Order filed. Mushtaq Rehman DO Check out comments: Referral to GI for colonoscopy/EGD. 10 doses iron sucrose. CBC/Retic/Iron studies at 5th and 10th infusion. OV/CBC/Retic/Iron studies in about [address] referral for GI for scheduling. Thank you! documented in this encounter [facility] 11-04-2022 History of Present illness Narrative Patient referred by Dr. Rodriguez for CHELITA. The impression and plan will be communicated by way of the shared electronic record or faxed under separate cover letter. HPI: The patient is a 42-year-old female with a past medical history significant for medicating hydrocephalus, partial epilepsy, fibromyalgia, POTS, epilepsy, Sjogren's disease, vitamin D deficiency and anemia. Blood Donor: One time when she was in high school. Menses: Regular menses. Typically last about 7 days. Can pass clots. Cycles regular about monthly. Has tried different medications to slow menses, but none have worked. History of colonoscopy/EGD: No. Trial of oral iron: Has tried oral iron at least 3 different times in the past. All cause vomiting. Has also tried MVI with iron and that too caused vomiting. Doesn't eat beef because many foods macrina beef trigger diarrhea. Always fatigued. Works in [employer]. RA has been ruled out. Diagnosed with Carmen-Danlos--hypermobile EDS. Has routine cardiology monitoring to assess if develops hyper vascular EDS. Most recent echo at [facility]. Valves normal. LVEF normal. PFO. PAST MEDICAL HISTORY Diagnosis Date Communicating hydrocephalus (HCC) Depression Epilepsy (HCC) Hypertension Iron deficiency anemia PMH - PAST MEDICAL HISTORY OF 2004 fibromyalgia PMH - PAST MEDICAL HISTORY OF Mitral valve prolapse POTS (postural orthostatic tachycardia syndrome) Rheumatoid arthritis, adult (HCC) Sjogren's syndrome (HCC) Vitamin D deficiency PAST SURGICAL HISTORY Procedure Laterality Date NONE ALLERGIES Allergen Reactions Acetazolamide Tingling in legs Furosemide Severe head pain and sleep disturbance Iodine [Contrast Dy* Hives throat closure Keppra [Levetiracet* Mental Status Change fatigue Nadolol Intolerance nausea Tegretol [Carbamaze* Intolerance hair loss Augmentin [Amoxicil* Vomiting Upset stomach, n/v Current Outpatient Medications Medication Sig clonazePAM (KLONOPIN) 2 mg tablet Take 1 tablet by mouth daily at bedtime for 90 days. cholecalciferol, Vitamin D3, (VITAMIN D3) 1,250 mcg (50,000 unit) cap capsule Take 1 capsule by mouth one time a week. lamoTRIgine (LAMICTAL) 100 mg tablet 1 tablet in AM and 1 tablet in PM. cetirizine HCl (ZYRTEC ORAL) Take 1 tablet by mouth once daily. acetaminophen/diphenhydramine (TYLENOL PM EXTRA STRENGTH ORAL) Take 1 tablet by mouth daily at bedtime. atenolol (TENORMIN) 25 mg tablet Take 1 tablet by mouth once daily. ferrous sulfate (SLOW FE) 140 mg (45 mg iron) TbER Take 1 tablet by mouth once daily. No current facility-administered medications for this visit. Social History Tobacco Use Smoking status: Never Smokeless tobacco: Never Substance Use Topics Alcohol use: No Drug use: No Family history: Sister age 25--Melanoma of the ear treated with surgery. Both GMs of ovarian cancer. MGM was in her 50-60s and PGM was 77. PGM--Prostate caner. ROS: Constitutional: Denies episodes of fever and night sweats. Normal appetite. Neuro: Denies WOLFF, vertigo, dizziness and imbalance. HEENT: No recent change in voice, vision or hearing. Resp: Denies cough, wheeze and hemoptysis. Denies shortness of breath at rest. Denies TYLER. CVS: Denies exertional chest pain, PND, orthopnea and LE edema. Hypotensive episodes can occur in any position. Can get sensation of tachycardia when gets orthostatic. Raynaud's. GI: Dysphagia for dry foods (Sjogren's)--chronic. Denies odynophagia. Lot of foods can cause diarrhea. : Denies dysuria or gross hematuria. No symptoms of bladder outlet obstruction. Endo: Denies hot flashes. Denies polyuria and polydipsia. Denies heat and cold intolerance. Musculoskeletal: Global joint pain. Derm: Denies rash. Denies jaundice and diffuse pruritis. Heme: Denies unusual bleeding and unexplained bruising. Psych: Normal mood. PHYSICAL EXAM: Vitals: Blood pressure 121/72, pulse 66, temperature 36.7 C (98.1 F), temperature source Temporal, height 159.4 cm (5' 2.75 ), weight 65.8 kg (145 lb), last menstrual period 04/22/2022, SpO2 97 %. Well-appearing and in no acute distress. EYES: Sclerae are anicteric bilaterally. LYMPHATIC: There is no palpable cervical, supraclavicular or axillary adenopathy. RESPIRATORY: Inspiratory breath sounds are of normal intensity in all xiong. No rales, wheezes or rhonchi. CARDIOVASCULAR: Rhythm is regular, ABDOMEN: The abdomen is nondistended. No organomegaly. No tenderness. Extremities: No swelling or edema. SKIN: No jaundice or rash. No petechiae. NEUROLOGIC: width stripper II-XII are grossly intact. No focal motor weakness. MUSCULOSKELETAL: Hyperextensive elbows. LABORATORY DATA: Component Latest Ref Rng & Units 04/13/2013 02/02/2016 12/23/2016 11/27/2019 01/11/2021 09/26/2021 10/24/2022 WBC 3.70 - 11.00 k/uL 4.16 4.68 5.27 4.79 6.25 4.95 RBC 3.90 - 5.20 m/uL 4.64 4.42 4.57 4.34 4.61 4.27 Hemoglobin 11.5 - 15.5 g/dL 11.6 11.0 (L) 10.8 (L) 11.1 (L) 11.4 (L) 11.2 (L) Hematocrit 36.0 - 46.0 % 37.0 37.2 36.1 35.9 (L) 38.4 35.3 (L) MCV 80.0 - 100.0 fL 79.7 (L) 84.2 79.0 (L) 82.7 83.3 82.7 MCH 26.0 - 34.0 pg 25.0 (L) 24.9 (L) 23.6 (L) 25.6 (L) 24.7 (L) 26.2 MCHC 30.5 - 36.0 g/dL 31.4 29.6 (L) 29.9 (L) 30.9 29.7 (L) 31.7 RDW-CV 11.5 - 15.0 % 13.3 13.6 15.9 (H) 14.4 14.3 14.3 Platelet Count 150 - 400 k/uL 251 247 277 296 356 320 MPV 9.0 - 12.7 fL 11.2 11.9 11.5 11.5 11.0 10.9 Neut% % 45.2 41.0 50.7 46.6 51.1 46.7 Abs Neut (ANC) 1.45 - 7.50 k/uL 1.88 1.92 2.66 2.22 3.18 2.31 Lymph% % 44.5 50.2 38.5 44.3 40.8 43.8 Abs Lymph 1.00 - 4.00 k/uL 1.85 2.35 2.03 2.12 2.55 2.17 [place]% % 9.1 7.5 8.7 8.1 7.2 8.3 Abs [place] <0.87 k/uL 0.38 0.35 0.46 0.39 0.45 0.41 Eosin% % 1.0 0.9 1.7 0.6 0.6 0.4 Abs Eosin <0.46 k/uL 0.04 0.04 0.09 0.03 0.04 <0.03 Baso% % 0.2 0.4 0.4 0.4 0.3 0.6 Abs Baso <0.11 k/uL 0.01 0.02 <0.03 <0.03 <0.03 0.03 Immature Gran % % 0.2 IMMATURE GRANS (ABS) <0.10 k/uL <0.03 NRBC /100 WBC 0.0 Absolute nRBC <0.01 k/uL 0.00 <0.01 <0.01 <0.01 <0.01 DTYPE Auto Nucleated Reds 0 /100 WBC 0.0 0.0 0.0 0.0 Diff Type Auto Diff Auto Diff Auto Diff Auto Diff Auto Diff Iron 41 - 186 ug/dL 33 27 (L) 37 (L) 47 TIBC 232 - 386 ug/dL 367 419 (H) 436 (H) 426 (H) Transferrin Saturation 15.0 - 57.0 % 9 (L) 6 (L) 8 (L) 11.0 (L) Ferritin 14.7 - 205.1 ng/mL 10.1 10.2 (L) 11.9 (L) ASSESSMENT/PLAN: (D50.9) Iron deficiency anemia, unspecified iron deficiency anemia type (primary encounter diagnosis) Assessment: -CHELITA longstanding likely secondary to decreased absorption and menorrhagia. -Family h/o significant for maternal and paternal GMs with ovarian cancer. -Intolerant to PO iron. -Discussed mechanisms leading to CHELITA. Plan: -Referral to GI colonoscopy/EGD. -She declines access control specialist referral now--doctor 'burnout.' -10 doses iron sucrose. -Monitor following. I spent a total of 50 minutes on the date of the service which included preparing to see the patient, [id number] patient care, completing clinical documentation, obtaining and/or reviewing separately obtained history, performing a medically appropriate examination, counseling and educating the patient/family/caregiver, ordering medications, tests, or procedures, communicating results to the patient/family/caregiver, and care coordination (not separately reported). Mushtaq Rehman DO documented in this encounter [facility] 10-31-2022 Miscellaneous Notes Addended by: VIJAY PETERSEN on: 10/31/2022 12:16 PM Modules accepted: Orders PDMP website checked and validated. All prescriptions have been APPROPRIATELY filled. No suspicious activity was identified. 10/31/2022 by Vijay Petersen MD Will provide Klonopin 30 day refill but pt needs to establish sooner visit for follow up. Do not feel appropriate to abruptly stop med as being used for seizure disorder. However. will not continue to provide refills if does not establish follow up as instructed. Will also need benzo confirmation at time of follow up. Vijay Petersen MD Images from the original note were not included. Patient advised at [facility] to schedule f/u in 8-12 months. At [facility] 04/26/22 patient scheduled routine f/u with KD for 12/26/22. Patient has 1 pill left as of today 10/31/22. Assessment and Plan: ASSESSMENT/PLAN: 1. 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 Insomnia, unspecified type - ICD9: 780.52, ICD10: G47.00 3. Stress at home - ICD9: V61.9, ICD10: F43.9 Patient with 2 episodes that might have represented focal seizure or aura. Pt does not endorse med non-compliance. Possible lowering of seizure threshold due to poor sleep associated with an additional exacerbating factor of stress at home. Discussed with patient and will increase Lamictal from 50mg BID to 50mg in AM and 100mg in PM x2 weeks followed by an additional increase to 100mg BID. SE and ADRs reviewed with pt. Will continue Klonopin 2mg QHS as previously Rx'd. Note that Lamictal may also help with stress and sleep with it also being a mood stabilizer. Will check Lamictal level. Follow up with Joey Garcia CNP in ~8 weeks. Note also discussed with patient repeating MRI brain to confirm no changes given possible breakthrough seizure. However patient declines at this time. Vijay Petersen MD I spent a total of 30+ minutes on the date of the service which included preparing to see the patient, [id number] patient care, completing clinical documentation, obtaining and/or reviewing separately obtained history, performing a medically appropriate examination, counseling and educating the patient/family/caregiver, ordering medications, tests, or procedures, independently interpreting results (not separately reported) and communicating results to the patient/family/caregiver. Note Details Instructions Return for 8-12 months with SHARAD COPE. Patient needs an appointment. Was supposed to be seen for follow up months ago. No appointment made. She is >6 months out since last seen. Please confirm how much Klonopin left. Please try to schedule with neuro MAGDA PATRICIA. Will then provide enough to get through to next visit. Thank you, Vijay Petersen MD Pt states she only has one pill left for tonight. Patient has been identified by name and date of : Yes, Provider Dr Petersen Date 10/31/22 Time 0834. Patient phones for refill(s): Requested Prescriptions Pending Prescriptions Disp Refills clonazePAM (KLONOPIN) 2 mg tablet 30 tablet 2 Sig: Take 1 tablet by mouth daily at bedtime for 90 days. Date of last office visit in primary care: 04/26/22 Future visit: 12/26/22 Last 2 Encounter Wt Readings: Date: Wt: 10/24/2022 64.9 kg (143 lb 1.9 oz) 04/26/2022 65 kg (143 lb 3.2 oz) Previous labs/tests for medication: Blood Pressure: BUN (mg/dL) Date Value 10/24/2022 8 09/26/2021 5 Sodium (mmol/L) Date Value 10/24/2022 139 09/26/2021 141 Last 1 Encounter BP Readings: Date: BP: 10/24/2022 120/80 Liver Function: ALT (U/L) Date Value 10/24/2022 11 09/26/2021 12 AST (U/L) Date Value 10/24/2022 20 09/26/2021 22 Please advise. Thank you. Mei Rider RN documented in this encounter [facility] 10-25-2022 Miscellaneous Notes Spoke with patient and scheduled. Nivia Krishna Referral was placed by Sandi Alexander APRN.TECHNICAL PUBLICATIONS WRITER: Iron deficiency anemia, unspecified iron deficiency anemia type [D50.9] . Patient will need consult appointment. Alexandria Vidal LPN No iron infusions ordered. Please advise. Nivia Krishna Not if Dr Rodriguez is placing orders for the iron. Lily Pacheco LPN Please advise if patient needs scheduled for consult or just for iron infusions. Nivia Krishna Hematology consult placed for possible iron transfusions. Thank you, Sandi Alexander APRN.ANATOLIY Spoke with pt gave information provided. Pt voices understanding. She said she can not take iron supplements has tried multiple times they make her very sick. Dr. Rodriguez told her next step would be iron infusions. Will slat pickler her papers at [employer] front load [employer] this nurse will take down. Please call patient and let her know that lab work looks good overall. Lipid panel looks great! Keep up the good work with diet. HgA1c is normal. Thyroid function is normal. Vitamin D level is very low. I recommend a 50,000 units supplement of Vitamin D3 per week. RX sent to pharmacy. Recheck vitamin D level in 3 months. Hemoglobin is also slightly low. This is due to iron deficiency. Is patient currently taking any iron supplement? I would recommend SLOW FE 140 mg daily. Rx to pharmacy. We can recheck iron levels in 3 months with vitamin D. I have filled out paperwork for employer health/wellness program. These are in my outbox. Looks like patient would like to pick these up instead of faxing. Thank you, Sandi Alexander APRN.ANATOLIY documented in this encounter [facility] 10-24-2022 History of Present illness Narrative Chief Complaint Patient presents with: Physical: Forms HPI Amberly Galvin is a 42 year old female who presents here today for Above Complaints. Amberly is an established patient of Dr. Michael DO. Amberly is a new patient to me today. Concerns today.. Routine physical. Has paperwork that needs filled out for work. Hx of partial epilepsy. Follows with Dr. Petersen, neurology at [facility], for this. Last visit 04/26/22. Last seizure shortly prior to this visit. Has been stable since. Iron deficiency and vitamin D deficiency in the past. POTS and Carmen-danlos syndrome-- Follows with Dr. Glaser. Recent visit 2 weeks ago. On Atenolol 25 mg daily for POTS - stable with this. Recent ECHO and stress test done this month were normal. -- Scheduled for mammogram 11/07. Willing to get tetanus shot today. Up to date on everything else. Past medical history, appointments, medications, allergies reviewed. Previous Medical History PAST MEDICAL HISTORY Diagnosis Date Depression Epilepsy (HCC) Hypertension PMH - PAST MEDICAL HISTORY OF 2004 fibromyalgia PMH - PAST MEDICAL HISTORY OF Mitral valve prolapse Rheumatoid arthritis, adult (HCC) Sjogren's syndrome (HCC) Vitamin D deficiency Previous Surgical History PAST SURGICAL HISTORY Procedure Laterality Date NONE Family History FAMILY HISTORY Problem Relation Age of Onset Cervical Cancer Mother Hypertension Father other (mvp) Father Cancer Maternal Grandmother ovarian cancer Cervical Cancer Sister COPD Paternal Grandmother ovarian cancer Asthma Sister Cancer Paternal Grandfather prostate Patient Allergies ALLERGIES Allergen Reactions Acetazolamide Tingling in legs Furosemide Severe head pain and sleep disturbance Iodine [Contrast Dy* Hives throat closure Keppra [Levetiracet* Mental Status Change fatigue Nadolol Intolerance nausea Tegretol [Carbamaze* Intolerance hair loss Augmentin [Amoxicil* Vomiting Upset stomach, n/v Current Medications Current Outpatient Medications on File Prior to Visit Medication Sig lamoTRIgine (LAMICTAL) 100 mg tablet 1 tablet in AM and 1 tablet in PM. clonazePAM (KLONOPIN) 2 mg tablet Take 1 tablet by mouth daily at bedtime for 90 days. famotidine (PEPCID) 20 mg tablet Take 1 tablet by mouth twice daily. cetirizine HCl (ZYRTEC ORAL) Take 1 tablet by mouth once daily. acetaminophen/diphenhydramine (TYLENOL PM EXTRA STRENGTH ORAL) Take 1 tablet by mouth daily at bedtime. atenolol (TENORMIN) 25 mg tablet Take 1 tablet by mouth once daily. No current facility-administered medications on file prior to visit. Social History Social History Tobacco Use Smoking status: Never Smokeless tobacco: Never Substance Use Topics Alcohol use: No Drug use: No REVIEW OF SYSTEMS: as above Reviewed relevant PMHx, PSHx, Social Hx, current medications and allergies. Review of Symptoms REVIEW OF SYSTEMS See HPI. All other systems are negative. EXAM: BP 120/80 (BP Site: Left Arm, BP Position: Sitting, BP Cuff Size: Regular Adult) Pulse 68 Resp 12 Ht 162.5 cm (5' 3.98 ) Wt 64.9 kg (143 lb 1.9 oz) LMP 04/22/2022 (Exact Date) BMI 24.58 kg/m General Appearance: Well appearing, alert, in no acute distress, well-hydrated, well nourished.. Skin: Skin color, texture, turgor normal, no suspicious rashes or lesions. Head: Normocephalic, no masses, lesions, tenderness or abnormalities. Neck: Supple, no adenopathy; thyroid symmetric, normal size, no bruits. Back:no pain to palpation of vertebrae, good flexion and extension, good range of motion, no muscle tenderness, reflexes are 2+ and symmetric, motor and sensory appear to be normal, negative SLR test, no evidence of scoliosis Lungs: Lungs clear to auscultation. No wheezing, rhonchi, rales.. Heart: RRR without murmur, gallop, or rubs. No ectopy. Abdomen: Normal abdominal exam, Abdomen soft, non-tender. Bowel sounds normal. No masses, organomegaly. Extremities: No deformities, edema, skin discoloration, clubbing or cyanosis. Good capillary refill. . Musculoskeletal: No joint swelling, deformity, or tenderness. Peripheral Pulses: Normal. Neurologic: Gait normal. Reflexes normal and symmetric. Sensation grossly intact.. Lymph Nodes: No cervical lymphadenopathy, No supraclavicular lymphadenopathy, No axillary lymphadenopathy., and No inguinal lymphadenopathy.. Health Maintenance List HEPATITIS B(1 of 3 - 3-dose series) Never done COVID-19 VACCINE(1) Never done HIV SCREENING Never done DTAP,TDAP,TD(2 - Tdap) due on 04/12/2014 INFLUENZA(1) Never done MAMMOGRAM due on 08/22/2022 HEPATITIS C SCREENING Completed PAP TESTING Discontinued HPV TESTING Discontinued ASSESSMENT/PLAN: 1. Well adult exam - ICD9: V70.0, ICD10: Z00.00 (primary diagnosis) - Counseled on healthy diet and regular exercise - Calcium intake with supplements or by diet of 1000 mg/day for under 50, 3027-6971 mg/day for 50+ - Mammogram ordered - exam recommended once yearly - Depression screening tool completed and reviewed with patient. Based on score and interview, patient is not at risk for depression and recommended no further intervention at this time. - Follow up for annual exam in one year Paperwork filled out. Waiting on results of blood work below - COMP METABOLIC PANEL - CBC + DIFF - LIPID PANEL BASIC - HGB A1C - IRON + TIBC - FERRITIN BLD - COURTNEY SCREENING W GERALD - TDAP VACCINE AGE 7+ IM 2. Encounter for immunization - ICD9: V03.89, ICD10: Z23 - TDAP VACCINE AGE 7+ IM 3. Vitamin D deficiency - ICD9: 268.9, ICD10: E55.9 - VITAMIN D 25 HYDROXY 4. Screening for thyroid disorder - ICD9: V77.0, ICD10: Z13.29 - TSH BLD 5. Partial epilepsy (HCC) - ICD9: 345.50, ICD10: G40.109 Stable. Well controlled. Continue with Dr. Petersen. 6. POTS (postural orthostatic tachycardia syndrome) - ICD9: 427.89, ICD10: G90.A Stable. Well controlled. Continue with Dr. Glaser recommendations. 7. 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 Well controlled. RTO in 1 year, sooner if needed. Prescription instructions reviewed with patient as applicable. Potential red flag symptoms discussed with the patient. Reviewed appropriate action plan to take if red flag symptoms occur. Patient agreeable to treatment plan. Sandi Moreira APRN.TECHNICAL PUBLICATIONS WRITER [id number] [place] [address] documented in this encounter [facility] 07-31-2022 Miscellaneous Notes PDMP website checked and validated. All prescriptions have been APPROPRIATELY filled. No suspicious activity was identified. 07/31/2022 by Vijay Petersen MD Using Klonopin for epilepsy. Needs screen next visit. Also will need Lamictal level. Vijay Petersen MD Patient called stating that her current supply of Lamictal that she just received from [facility] is 0.5 mg twice daily with 90 tablets sent. Patient states that this was increased to 1 tablet twice daily on 04/26/22. Upon reviewing the order the most recent script was sent to [facility] and patient states she does not use [facility] pharmacy for this medication. She is asking for the new script be sent to [facility]. Last office visit: 04/26/22 Next appointment scheduled: 12/26/22 Patient phones requesting refills as follows: Requested Prescriptions Pending Prescriptions Disp Refills lamoTRIgine (LAMICTAL) 100 mg tablet 180 tablet 1 Sig: Take 0.5mg in AM and 1 tab in PM x2 weeks, and then increase to 1 tablet in AM and 1 tablet in PM. clonazePAM (KLONOPIN) 2 mg tablet 90 tablet 0 Sig: Take 1 tablet by mouth daily at bedtime for 90 days. Please review and advise. Missy Soni LPN ASSESSMENT/PLAN: 1. 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 Insomnia, unspecified type - ICD9: 780.52, ICD10: G47.00 3. Stress at home - ICD9: V61.9, ICD10: F43.9 Patient with 2 episodes that might have represented focal seizure or aura. Pt does not endorse med non-compliance. Possible lowering of seizure threshold due to poor sleep associated with an additional exacerbating factor of stress at home. Discussed with patient and will increase Lamictal from 50mg BID to 50mg in AM and 100mg in PM x2 weeks followed by an additional increase to 100mg BID. SE and ADRs reviewed with pt. Will continue Klonopin 2mg QHS as previously Rx'd. Note that Lamictal may also help with stress and sleep with it also being a mood stabilizer. Will check Lamictal level. Follow up with Joey Garcia CNP in ~8 weeks. Note also discussed with patient repeating MRI brain to confirm no changes given possible breakthrough seizure. However patient declines at this time. Vijay Petersen MD documented in this encounter [facility] 04-26-2022 History of Present illness Narrative ESTABLISHED PATIENT VISIT CHIEF COMPLAINT: Seizure follow up HISTORY OF PRESENT ILLNESS: Amberly Galvin is a 42 year old female, There were no vitals taken for this visit. with a PMH significant for and per last office visit note of Joey Garcia CNP in 12/2021: G40.109 Partial epilepsy (HCC) (primary encounter diagnosis) Comment: History of focal epilepsy. No reported seizure activity since previous visit. MRI brain from 2012 and MRI/A brain/neck from 2020 available and able to be reviewed with stable ventriculomegaly, however, no other records available at this time. Currently taking Lamictal 50mg BID and Klonopin 2mg QHS without SE or concerns. Will continue current medication regimen. She should maintain seizure precautions and avoid factors that could lower seizure threshold. R20.2 Paresthesias Comment: Patient reporting numbness to bilateral thighs localized to anterior aspect. Can occur intermittently. On assessment, sensation decreased to light touch to anterior aspect of both thighs as well as lateral aspect of right calf. No focal weakness noted. She does report intermittent lumbar pains as well. At this time will proceed with lumbar XR to evaluate for degenerative changes possibly contributing to symptoms. Xray above was negative per report. Pt concerned she may have had some seizures during the interim in that she had an aura in which she saw shellie . States has happened a couple times . Did not miss medications on those days. States she has been under a lot of stress. Not sleeping well at night even with Klonopin -- it makes me tired but if I dont take a tylenol PM will fall asleep at 2AM . No episodes to suggest seizures during the day. No other episodes noted by patient. Did see allergy, and per patient thought might have a beef allergy . States that if not taking Zyrtec, will be sneezing non stop. Im just in a states of being tired . Last MRI brain in 2020 per report from [facility] was stable. States constant state of stress at home. Feels no support. REVIEW OF SYSTEMS GENERAL:No weight loss, malaise or fevers. HEENT:Negative for frequent or significant headaches, No changes in hearing or vision, no nose bleeds or other nasal problems RESPIRATORY: Negative for cough, wheezing or shortness of breath. CARDIOVASCULAR: Negative for chest pain, leg swelling or palpitations. MUSCULOSKELETAL: Negative for joint pain or swelling, back pain or muscle pain. NEUROLOGIC:Negative for focal numbness or weakness, headaches and dizziness or syncope, vision changes, speech/languag changes - EXCEPT that as per HPI above. SKIN:Negative for lesions, rash, and itching. PSYCHIATRIC: See HPI. LAB/IMAGING: Those performed since patient's last visit have been reviewed. WBC (k/uL) Date Value 09/26/2021 6.25 RBC (m/uL) Date Value 09/26/2021 4.61 Hemoglobin (g/dL) Date Value 09/26/2021 11.4 (L) Hematocrit (%) Date Value 09/26/2021 38.4 MCV (fL) Date Value 09/26/2021 83.3 MCH (pG) Date Value 09/26/2021 24.7 (L) MCHC (g/dL) Date Value 09/26/2021 29.7 (L) RDW-CV (%) Date Value 09/26/2021 14.3 Platelet Count (k/uL) Date Value 09/26/2021 356 MPV (fL) Date Value 09/26/2021 11.0 Glucose (mg/dL) Date Value 09/26/2021 90 BUN (mg/dL) Date Value 09/26/2021 5 (L) Creatinine (mg/dL) Date Value 09/26/2021 0.62 Sodium (mmol/L) Date Value 09/26/2021 141 Potassium (mmol/L) Date Value 09/26/2021 3.5 (L) Chloride (mmol/L) Date Value 09/26/2021 103 CO2 (mmol/L) Date Value 09/26/2021 26 Protein, Total (g/dL) Date Value 09/26/2021 7.4 Albumin (g/dL) Date Value 09/26/2021 5.1 (H) Calcium (mg/dL) Date Value 09/26/2021 9.4 Alkaline Phosphatase (U/L) Date Value 09/26/2021 58 Bilirubin, Total (mg/dL) Date Value 09/26/2021 0.3 AST (U/L) Date Value 09/26/2021 22 ALT (U/L) Date Value 09/26/2021 12 Rheumatoid Factor (IU/mL) Date Value 07/11/2006 <3 Hep C Antibody IA (no units) Date Value 06/01/2015 Negative MEDICATIONS: clonazePAM (KLONOPIN) 2 mg tablet Take 1 tablet by mouth daily at bedtime for 90 days. famotidine (PEPCID) 20 mg tablet Take 1 tablet by mouth twice daily. cetirizine HCl (ZYRTEC ORAL) Take 1 tablet by mouth once daily. acetaminophen/diphenhydramine (TYLENOL PM EXTRA STRENGTH ORAL) Take 1 tablet by mouth daily at bedtime. lamoTRIgine (LAMICTAL) 100 mg tablet Take 0.5 tablets by mouth twice daily. atenolol (TENORMIN) 25 mg tablet Take 1 tablet by mouth once daily. HISTORIES PAST MEDICAL HISTORY Diagnosis Date Depression Epilepsy (HCC) Hypertension PMH - PAST MEDICAL HISTORY OF 2004 fibromyalgia PMH - PAST MEDICAL HISTORY OF Mitral valve prolapse Rheumatoid arthritis, adult (HCC) Sjogren's syndrome (HCC) Vitamin D deficiency FAMILY HISTORY Problem Relation Age of Onset Cervical Cancer Mother Hypertension Father other (mvp) Father Cancer Maternal Grandmother ovarian cancer Cervical Cancer Sister COPD Paternal Grandmother ovarian cancer Asthma Sister Cancer Paternal Grandfather prostate SOCIAL HISTORY Social History Tobacco Use Smoking status: Never Smoker Smokeless tobacco: Never Used Substance Use Topics Alcohol use: No Drug use: No PHYSICAL EXAMINATION LMP 09/17/2021 (Exact Date) GENERAL EXAM: General appearance: NAD, pleasant. HEENT: NC/AT, nasal congestion absent, no oral lesions, membranes moist. NECK: No masses, supple. Lungs: CTA bilaterally.. CV: RRR nl S1, S2. No carotid bruits. Extr: No cyanosis, clubbing or edema. Skin: Cool to touch. NEUROLOGICAL EXAM: General: Awake, alert, oriented x3 (person,place,time), speech fluent, no dysarthria; comprehension, naming, repetition intact. CN: PERRL, EOMI and without nystagmus, VFF to confrontation, facial sensation and strength are normal and symmetric, hearing is intact to finger rub bilaterally, palate and tongue movements are intact and symmetric. SCM and trapezius strength normal. Motor: Normal tone, bulk and strength (5/5) bilaterally (throughout extremities x4). Reflexes: 2/4 and symmetric, plantar stimulation is flexor. Coordination: FNF, CARLOS, HTS intact. No tremors. Sensation: Light touch and vibration intact throughout. No evidence of neglect. Gait: Stable with normal stride and arm swing. Assessment and Plan: ASSESSMENT/PLAN: 1. 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 Insomnia, unspecified type - ICD9: 780.52, ICD10: G47.00 3. Stress at home - ICD9: V61.9, ICD10: F43.9 Patient with 2 episodes that might have represented focal seizure or aura. Pt does not endorse med non-compliance. Possible lowering of seizure threshold due to poor sleep associated with an additional exacerbating factor of stress at home. Discussed with patient and will increase Lamictal from 50mg BID to 50mg in AM and 100mg in PM x2 weeks followed by an additional increase to 100mg BID. SE and ADRs reviewed with pt. Will continue Klonopin 2mg QHS as previously Rx'd. Note that Lamictal may also help with stress and sleep with it also being a mood stabilizer. Will check Lamictal level. Follow up with Joey Garcia CNP in ~8 weeks. Note also discussed with patient repeating MRI brain to confirm no changes given possible breakthrough seizure. However patient declines at this time. Vijay Petersen MD I spent a total of 30+ minutes on the date of the service which included preparing to see the patient, [id number] patient care, completing clinical documentation, obtaining and/or reviewing separately obtained history, performing a medically appropriate examination, counseling and educating the patient/family/caregiver, ordering medications, tests, or procedures, independently interpreting results (not separately reported) and communicating results to the patient/family/caregiver. documented in this encounter [facility] 04-22-2022 Miscellaneous Notes PDMP website checked and validated. All prescriptions have been APPROPRIATELY filled. No suspicious activity was identified. April 22, 2022 Xi Garcia APRN.CNP Pt to keep upcoming appointment with Dr. Petersen on 04/26/22. Patient has been identified by name and date of : Yes Patient phones for refill(s): Pending Prescriptions Disp Refills CLONAZEPAM 2 MG TABLET 90 tablet 0 Sig: Take 1 tablet by mouth daily at bedtime for 90 days. YINKA Class: C-IV ANTONIA: No Date of last office visit in Neurology: [facility] 01/24/2022 Appointment scheduled for 04/26/22 [facility] Notes: Assessment/Plan: G40.109 Partial epilepsy (HCC) (primary encounter diagnosis) Comment: History of focal epilepsy. No reported seizure activity since previous visit. MRI brain from 2012 and MRI/A brain/neck from 2020 available and able to be reviewed with stable ventriculomegaly, however, no other records available at this time. Currently taking Lamictal 50mg BID and Klonopin 2mg QHS without SE or concerns. Will continue current medication regimen. She should maintain seizure precautions and avoid factors that could lower seizure threshold. Last 2 Encounter Wt Readings: Date: Wt: 03/22/2022 63 kg (139 lb) 01/24/2022 63.5 kg (140 lb) Please advise. Thank you. FLORENCIO Jacobson documented in this encounter [facility] 03-22-2022 Instructions Maire Barajas APRN.CNP - 03/22/2022 9:58 AM EDT It was a pleasure meeting you Today we completed food and environmental skin testing Both were negative Foods - suspect this is an intolerance Ok to eat foods tested today as tolerated Consider seeing GI Environmental - negative Non-allergic Ok to continue Zyrtec if it helps you If you start to notice increased nasal symptoms, would try a steroid nose spray called Flonase 2 sprays each nostril once daily Technique for nasal spray administration: First, look slightly down, breathe normally, you do not need to sniff while you spray. To use the nose spray, place the tip in your nose with the opposite hand (left hand, right side of nose, right hand, left side of nose), and aim or point toward the outside of the nose. Do not sniff or snort medication afterwards as this can cause most of the medication to be swallowed. Rather, dab your nose with a tissue if any runs out. Follow-up with Dr. Serrato documented in this encounter [facility] 03-22-2022 History of Present illness Narrative [facility] Allergy & Clinical Immunology HPI Amberly Galvin is a 42 year old female who presents for skin testing to foods and environmental allergens. The following assessment and plan was recorded and discussed at her last visit on 02/22/22: ASSESSMENT/PLAN: 1. Allergic reaction to contrast material, initial encounter (primary encounter diagnosis) Prophylaxis for further Radiocontrast Media: Prednisone 50 mg 13,7,1 hour prior to procedure Diphenhydramine 50 mg 1 hour po/ IV prior to procedure Use a lower or iso-osmolar radiocontrast Emergency medical treatment to treat anaphylactoid reaction to be present 2. Food sensitivity with gastrointestinal symptoms Comment: Can't eat beef- had tolerated for years. nauseated. Hours after or next am- severe GI cramps, loose stools. Can be very delayed. no tick bite. Pork, Chicken- similar symptoms- less severe Milk- similar but immediate. can tolerate shredded cheese. gassy and bloated and Gi distress. Has never tried lactaid or pill. no other symptoms. Strawberries- once- similar to beef. retried with similar symptoms. Black pepper- put it on rice- instant burning of mouth. no other symptoms. Plan: CONSULT TO ALLERGY/IMMUNOLOGY, TRYPTASE BLOOD, ALGN FOOD ALPHA-GAL Recommend skin testing to beef, chicken, milk, pork, strawberry, black pepper 3. Seasonal allergic rhinitis due to pollen Recommend skin testing to the inhalant allergens 4. Concerns of mast cell activation syndrome Patient given standing order of tryptase to obtain with symptoms History of EDS, POTS, hydrocephalus, migraine, sjogren's Fabiana Serrato MD , FAAAAI, FACAAI Interim History Feeling relatively well. Experiencing increased rhinitis symptoms since suspending use of antihistamines in preparation for today's appointment. ALLERGIES Allergen Reactions Acetazolamide Tingling in legs Furosemide Severe head pain and sleep disturbance Iodine [Contrast Dy* Hives throat closure Keppra [Levetiracet* Mental Status Change fatigue Nadolol Intolerance nausea Tegretol [Carbamaze* Intolerance hair loss Augmentin [Amoxicil* Vomiting Upset stomach, n/v PAST MEDICAL HISTORY Diagnosis Date Depression Epilepsy (HCC) Hypertension PMH - PAST MEDICAL HISTORY OF 2004 fibromyalgia PMH - PAST MEDICAL HISTORY OF Mitral valve prolapse Rheumatoid arthritis, adult (HCC) Sjogren's syndrome (HCC) Vitamin D deficiency PAST SURGICAL HISTORY Procedure Laterality Date NONE FAMILY HISTORY Problem Relation Age of Onset Cervical Cancer Mother Hypertension Father other (mvp) Father Cancer Maternal Grandmother ovarian cancer Cervical Cancer Sister COPD Paternal Grandmother ovarian cancer Asthma Sister Cancer Paternal Grandfather prostate Social History Tobacco Use Smoking status: Never Smoker Smokeless tobacco: Never Used Substance Use Topics Alcohol use: No Drug use: No Current Outpatient Medications on File Prior to Visit Medication Sig famotidine (PEPCID) 20 mg tablet Take 1 tablet by mouth twice daily. cetirizine HCl (ZYRTEC ORAL) Take 1 tablet by mouth once daily. acetaminophen/diphenhydramine (TYLENOL PM EXTRA STRENGTH ORAL) Take 1 tablet by mouth daily at bedtime. clonazePAM (KLONOPIN) 2 mg tablet Take 1 tablet by mouth daily at bedtime for 90 days. lamoTRIgine (LAMICTAL) 100 mg tablet Take 0.5 tablets by mouth twice daily. atenolol (TENORMIN) 25 mg tablet Take 1 tablet by mouth once daily. No current facility-administered medications on file prior to visit. Review of Systems Constitutional: Positive for fatigue. Negative for chills and fever. HENT: Positive for congestion, postnasal drip, rhinorrhea and sneezing. Eyes: Positive for itching. Respiratory: Positive for cough (s/t pnd). Negative for chest tightness, shortness of breath and wheezing. Cardiovascular: Negative for chest pain, palpitations and leg swelling. Skin: Negative for rash. Pulse 73, weight 63 kg (139 lb), last menstrual period 09/17/2021, SpO2 100 %. Body mass index is 24.62 kg/m . Physical Exam Constitutional: General: She is not in acute distress. HENT: Head: Normocephalic. Right Ear: Tympanic membrane, ear canal and external ear normal. Left Ear: Tympanic membrane, ear canal and external ear normal. Nose: Nose normal. Mouth/Throat: Mouth: Mucous membranes are moist. Pharynx: Oropharynx is clear. No oropharyngeal exudate or posterior oropharyngeal erythema. Eyes: General: No scleral icterus. Cardiovascular: Rate and Rhythm: Normal rate and regular rhythm. Heart sounds: Normal heart sounds. No murmur heard. Pulmonary: Effort: Pulmonary effort is normal. No respiratory distress. Breath sounds: Normal breath sounds. Skin: Findings: No rash. Neurological: Mental Status: She is alert and oriented to person, place, and time. Pertinent Laboratory Results: Component Latest Ref Rng & Units 03/02/2022 Food Alpha-Gal IgE <=0.09 kU/L <0.10 Allergy Skin Testing: I personally reviewed the patients testing and interpreted it as follows: Foods (03/22/22): Skin testing negative to beef, chicken, pork, milk, black pepper and strawberry including fresh Inhalents (03/22/22): Skin testing negative to all inhalent allergens Assessment/Plan: 1. Chronic nonallergic rhinitis - ICD9: 472.0, ICD10: J31.0 Non-allergic based on negative skin testing to environmental allergens. - May continue Zyrtec 10 mg once daily as needed if as she finds it beneficial - If rhinitis symptoms become bothersome, recommend starting Flonase 2 sprays each nostril once daily. Reviewed proper technique and provided with written instructions. 2. Food sensitivity with gastrointestinal symptoms - ICD9: 693.1, 787.99, ICD10: T78.1XXA Skin testing negative to beef, chicken, pork, milk, black pepper and strawberry including fresh. Serum testing negative to alpha gal. Based on these results, symptoms are likely related to an intolerance rather than an IgE-mediated food allergy. - May eat these foods as tolerated - Discussed referral to GI but patient would prefer to wait until after appointment with neurology Marie Barajas APRN.ANATOLIY Department of Allergy & Clinical Immunology #[id number] documented in this encounter [facility] 02-28-2022 Miscellaneous Notes Received 28 pages of charting from [facility]. Will place on provider desk to review. Goldie Moreno LPN Second request faxed to [facility] for patient records. Goldie Moreno LPN documented in this encounter [facility] 02-22-2022 Nurse Note Summary: Appointme nt Reminder Spoke to Amberly Galvin, confirmed patient is registered on [facility] and is prepared for their appointment. Confirmed the patient has updated medications, allergies, and questionnaires via [facility]. Informed patient if there is an issue with the connection, provider will send the patient a secure link. If provider is running late, patient should remain connected to the visit. Patient verbalized understanding. Breana Lin RN February 22, 2022 11:27 AM documented in this encounter [facility] 02-22-2022 History of Present illness Narrative February 22, 2022 New Consult- Dr. Petersen- Virtual The patient is a 42 year old female patient who complains of itchy eyes, clear rhinorrhea, itchy nose, nasal congestion, postnasal drip. Associated symptoms includeThese symptoms are seasonal with symptoms occuring in the summer. Current triggers include exposure to pollens. The patient has been suffering from these symptoms 2 year(s). The patient has tried prescription nasal sprays - including Zyrtec with excellent relief of symptoms. Immunotherapy has never been tried. The patient has not had sinus surgery in the past. Patient wondered if she has mast cell activation. Has EDS. Can't eat beef- had tolerated for years. nauseated. Hours after or next am- severe GI cramps, loose stools. Can be very delayed. no tick bite. Pork, Chicken- similar symptoms- less severe Milk- similar but immediate. can tolerate shredded cheese. gassy and bloated and Gi distress. Has never tried lactaid or pill. no other symptoms. Strawberries- once- similar to beef. retried with similar symptoms. Black pepper- put it on rice- instant burning of mouth. no other symptoms. Tolerates other fruits, egg, wheat, rice, oat. has not seen GI in past. Avoided zyrtec, benadryl- had told them to avoid for 5 days- day 1 with AR symptoms. Day 2- tried chicken- immediately with symptoms. Day 3-5- with increased allergy symptoms. tried to eat a blt- Gi upset. can have episodes of constipation. Does not have regular bowel movements. No sever anaphylxis to other products. Occasionlly will have symptoms of electric shock in body and will start sweating and will feel nauseated. will resolve then pruritis generalized. last for 30 minutes. Occurs 4-5 episodes over 1 year. felt triggered with food. Feels it was seasoning on dressing with symptoms. [employer]- seasoning on hummus- had burning of mouth. symptoms. after eating once Nasal polyps: The patient has never had nasal polyps. Asthma: The patient has no history of asthma. Sinusitis: The patient does not suffer from frequent sinopulmonary infections. Latex Allergy: DENIES Contact Dermatitis/Eczema: DENIES Hymenoptera Reaction: denies CAT scan: DENIES Environmental history: Pets in the home: 1 dogs Bela: [id number] carpeting Air conditioning: Central air Heating: Forced hot air Basement: Dry basement Dust mite controls: Dust mite controls are not in place. Tobacco smoke: No exposure in the home. HISTORIES FAMILY HISTORY Problem Relation Age of Onset Cervical Cancer Mother Hypertension Father other (mvp) Father Cancer Maternal Grandmother ovarian cancer Cervical Cancer Sister COPD Paternal Grandmother ovarian cancer Asthma Sister Cancer Paternal Grandfather prostate PAST MEDICAL HISTORY Diagnosis Date Depression Epilepsy (HCC) Hypertension PMH - PAST MEDICAL HISTORY OF 2004 fibromyalgia PMH - PAST MEDICAL HISTORY OF Mitral valve prolapse Rheumatoid arthritis, adult (HCC) Sjogren's syndrome (HCC) Vitamin D deficiency POTS Hydrocephalus EDS PAST SURGICAL HISTORY Procedure Laterality Date NONE Social History Tobacco Use Smoking status: Never Smoker Smokeless tobacco: Never Used Substance Use Topics Alcohol use: No Drug use: No Social history: work and exposure- Allergies: Acetazolamide, Furosemide, Iodine [Contrast Dye], Keppra [Levetiracetam], Nadolol, Tegretol [Carbamazepine Analogues], and Augmentin [Amoxicillin-Pot Clavulanate] RCM- felt infusion- after got home- throat itching and generalized itchy and throat tightening. Called nurse. took benadryl with resolution. rash on chest. 2003. Current outpatient prescriptions Current Outpatient Medications Medication Sig cetirizine HCl (ZYRTEC ORAL) Take 1 tablet by mouth once daily. acetaminophen/diphenhydramine (TYLENOL PM EXTRA STRENGTH ORAL) Take 1 tablet by mouth daily at bedtime. clonazePAM (KLONOPIN) 2 mg tablet Take 1 tablet by mouth daily at bedtime for 90 days. lamoTRIgine (LAMICTAL) 100 mg tablet Take 0.5 tablets by mouth twice daily. atenolol (TENORMIN) 25 mg tablet Take 1 tablet by mouth once daily. ferrous sulfate (SLOW FE) 140 mg (45 mg iron) TbER Take 1 tablet by mouth twice daily with meals. (Patient not taking: Reported on 10/22/2021 ) No current facility-administered medications for this visit. Review Of Systems GENERAL:No weight loss, malaise or fevers HEENT:Negative for frequent or significant headaches, No changes in hearing or vision, no nose bleeds or other nasal problems NECK:Negative for lumps, goiter, pain and significant neck swelling RESPIRATORY: Negative for cough, hemoptysis, wheezing, COPD, dyspnea or shortness of breath CARDIOVASCULAR: Negative for chest pain, leg swelling, hypertension, CHF or palpitations GASTROINTESTINAL: See HPI SKIN:Negative for lesions, rash, and itching Physical video exam: General: alert and appropriate, in no distress, well-hydrated, well nourished and happy, smiling, interactive Skin: no rash noted Head: normocephalic, no abnormality or lesion noted Eyes: no injection and visual acuity is grossly normal Ears: external ears normal, no mastoid tenderness Nose: external nose normal without rhinorrhea Respiratory: breathing non-labored and no grunting/flaring/retractions Chest: equal chest rise with normal respiratory effort ASSESSMENT/PLAN: 1. Allergic reaction to contrast material, initial encounter (primary encounter diagnosis) Prophylaxis for further Radiocontrast Media: Prednisone 50 mg 13,7,1 hour prior to procedure Diphenhydramine 50 mg 1 hour po/ IV prior to procedure Use a lower or iso-osmolar radiocontrast Emergency medical treatment to treat anaphylactoid reaction to be present 2. Food sensitivity with gastrointestinal symptoms Comment: Can't eat beef- had tolerated for years. nauseated. Hours after or next am- severe GI cramps, loose stools. Can be very delayed. no tick bite. Pork, Chicken- similar symptoms- less severe Milk- similar but immediate. can tolerate shredded cheese. gassy and bloated and Gi distress. Has never tried lactaid or pill. no other symptoms. Strawberries- once- similar to beef. retried with similar symptoms. Black pepper- put it on rice- instant burning of mouth. no other symptoms. Plan: CONSULT TO ALLERGY/IMMUNOLOGY, TRYPTASE BLOOD, ALGN FOOD ALPHA-GAL Recommend skin testing to beef, chicken, milk, pork, strawberry, black pepper 3. Seasonal allergic rhinitis due to pollen Recommend skin testing to the inhalant allergens 4. Concerns of mast cell activation syndrome Patient given standing order of tryptase to obtain with symptoms History of EDS, POTS, hydrocephalus, migraine, sjogren's I spent 45 minutes with patient and >50% in face to face consultation regarding testing results/ diagnosis codes discussed above. Fabiana Serrato MD , FAAAAI, FACAAI Note may be dictated and sent prior to being proofread in order to expedite delivery. documented in this encounter [facility] 01-29-2022 History of Present illness Narrative Radiology Service Progress Note PATIENT NAME: Amberly Galvin DATE OF SERVICE: January 29, 2022 TIME: 8:30 AM PATIENT IDENTITY VERIFICATION COMPLETED USING TWO (2) IDENTIFIERS: Name and Date of confirmed by patient verbally. FALL SCREENING: Has the patient had 2 falls in the last year or 1 fall with injury or currently using an Ambulatory Assistive Device (Walker, Cane, Wheelchair, Crutches, etc.)? No PATIENT GENDER DATA: Female. status: : No status: NO. PATIENT RELEVANT IMPLANT DATA REVIEWED: Not Applicable RADIOLOGY DEPARTMENT: Mammography PERIPHERAL IV DATA: Not applicable SIGNED BY: RT Ivonne(R) January 29, 2022 8:30 AM documented in this encounter [facility] 01-24-2022 History of Present illness Narrative Images from the original note were not included. [facility] [place] Follow-up Visit Follow-up note January 24, 2022 HPI: Ms. Galvin presents today for a follow-up visit. Per her previous visit with Dr. Petersen on 10/22/21: ASSESSMENT/PLAN: 1. 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 Will need to get prior records from [facility] ([facility]). In meantime, with no clinical seizure activity, and stable objective workups including MRIs brain and EEGs, will continue on current AEDs including Lamictal 50mg BID and Klonopin 2mg QHS. SE and ADRs reviewed with pt. Reviewed seizure precautions and risk factors. Follow up 3 months. 2. Food sensitivity with gastrointestinal symptoms - ICD9: 693.1, 787.99, ICD10: T78.1XXA Pt with multiple complaints regarding reactions to food. Unclear if allergy . Would not be POTS. Will refer to allergy per discussion with pt today and will inform PCP of referral No changes to POTS meds with patient following with cardiology and having minimal symptoms. Since September everything has been going well. Has not noticed anything abnormal or out of the ordinary. Will typically have partial memory loss. After a seizure occurs she will open her eyes and see a black silhouette or a person. She will then get up and go to the light switch in the room. IF she doesn't find it she just slam into the schulz to find the switch. Afterwards will lay down and go back to sleep as if nothing happened. Will feel very tired afterwards. No episodes of staring off into space. No loss of bowel or bladder control. Still taking Lamictal 50mg BID and Klonopin daily at bedtime. Had been started on gabapentin but had leg swelling and had to discontinue. Last MRI of brain was in 2020. 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 Has not had any similar symptoms since that time. Has only had tension headaches and no further migraines. Later during appointment, she reports intermittent sensation changes/numbness to bilateral thighs. Can be independent of each other. Intermittent low back pain. Localized to anterior thigh and not lateral aspect. PAST MEDICAL HISTORY Diagnosis Date Depression Epilepsy (HCC) Hypertension PMH - PAST MEDICAL HISTORY OF 2004 fibromyalgia PMH - PAST MEDICAL HISTORY OF Mitral valve prolapse Rheumatoid arthritis, adult (HCC) Sjogren's syndrome (HCC) Vitamin D deficiency PAST SURGICAL HISTORY Procedure Laterality Date NONE Current Outpatient Medications on File Prior to Visit Medication Sig clonazePAM (KLONOPIN) 2 mg tablet Take 1 tablet by mouth daily at bedtime for 90 days. Do not start before October 26, 2021. lamoTRIgine (LAMICTAL) 100 mg tablet Take 0.5 tablets by mouth twice daily. ferrous sulfate (SLOW FE) 140 mg (45 mg iron) TbER Take 1 tablet by mouth twice daily with meals. (Patient not taking: Reported on 10/22/2021 ) gabapentin (NEURONTIN) 100 mg capsule Take 1-3 capsules by mouth daily at bedtime for 90 days. atenolol (TENORMIN) 25 mg tablet Take 1 tablet by mouth once daily. No current facility-administered medications on file prior to visit. Social History Tobacco Use Smoking status: Never Smoker Smokeless tobacco: Never Used Substance Use Topics Alcohol use: No Drug use: No ALLERGIES Allergen Reactions Acetazolamide Tingling in legs Furosemide Severe head pain and sleep disturbance Iodine [Contrast Dy* Hives throat closure Keppra [Levetiracet* Mental Status Change fatigue Nadolol Intolerance nausea Tegretol [Carbamaze* Intolerance hair loss Augmentin [Amoxicil* Vomiting Upset stomach, n/v Review of Systems: Cardiopulmonary: denies chest pain, palpitations Respiratory: + shortness of breath (with stairs) GI/: denies recent + nausea, + vomiting, + diarrhea, + constipation, incontinence Musculoskeletal: denies + weakness Back/spine: denies low back or + cervical pains Neuro: denies loss of feeling, + dizziness, seizure, blackout, + paresthesia (thighs), facial paresthesia, facial weakness, difficulty in speech, slurring of words, dysarthria, dysphagia, + headache, vision changes, loss of hearing Physical Exam: 01/24/22 0958 BP: 118/62 Pulse: 72 Resp: 18 Temp: 36.9 C (98.5 F) SpO2: 100% Weight: 63.5 kg (140 lb) Patient is alert and in no distress. Dress is appropriate. Mood is appropriate Breathing appears regular and unstressed Neurologic examination: Cognitively intact. No deficits. No formal MMSE performed. CN: Pupils equal and reactive to light, extraocular movements intact with no nystagmus, face is symmetric with no facial droop, facial sensation intact bilaterally to light touch. V1-3, hearing intact bilaterally, symmetric elevation of the soft palate, tongue is midline with no deviation, shoulder shrug is symmetric. Motor exam shows 5/5 strength symmetric through the upper and lower extremities in all groups tested. Sensory decreased to light touch in bilateral thighs and to RLE lateral aspect. Vibratory sensation is intact and symmetric all extremities. Deep tendon reflexes are symmetric at the biceps, brachioradialis, triceps, patella, and achilles bilaterally. Negative Sheth's bilaterally. Coordination: No dysmetria on finger to nose. No tremors noted. No drift seen. Gait normal in stance and pattern. Labs/studies: MRA Brain/Neck W/WO 10/12/20: Normal bilateral cervical carotid and vertebral arteries. Normal MRA of the head. MRI Brain WO 10/12/20: Suspect normal pressure hydrocephalus. Moderate enlargement of the third ventricle. MRI Brain W/WO 04/22/13: Stable ventriculomegaly. No acute process identified. Component Latest Ref Rng & Units 09/26/2021 WBC 3.70 - 11.00 k/uL 6.25 RBC 3.90 - 5.20 m/uL 4.61 Hemoglobin 11.5 - 15.5 g/dL 11.4 (L) Hematocrit 36.0 - 46.0 % 38.4 MCV 80.0 - 100.0 fL 83.3 MCH 26.0 - 34.0 pG 24.7 (L) MCHC 30.5 - 36.0 g/dL 29.7 (L) RDW-CV 11.5 - 15.0 % 14.3 Platelet Count 150 - 400 k/uL 356 MPV 9.0 - 12.7 fL 11.0 Neut% % 51.1 Abs Neut (ANC) 1.45 - 7.50 k/uL 3.18 Lymph% % 40.8 Abs Lymph 1.00 - 4.00 k/uL 2.55 [place]% % 7.2 Abs [place] <0.87 k/uL 0.45 Eosin% % 0.6 Abs Eosin <0.46 k/uL 0.04 Baso% % 0.3 Abs Baso <0.11 k/uL <0.03 Nucleated Reds 0 /100 WBC 0.0 Absolute nRBC <0.01 k/uL <0.01 Diff Type Auto Diff Protein, Total 6.3 - 8.0 g/dL 7.4 Albumin 3.9 - 4.9 g/dL 5.1 (H) Calcium 8.5 - 10.2 mg/dL 9.4 Bilirubin, Total 0.2 - 1.3 mg/dL 0.3 Alkaline Phosphatase 34 - 123 U/L 58 AST 13 - 35 U/L 22 Glucose 74 - 99 mg/dL 90 BUN 7 - 21 mg/dL 5 (L) Creatinine 0.58 - 0.96 mg/dL 0.62 Sodium 136 - 144 mmol/L 141 Potassium 3.7 - 5.1 mmol/L 3.5 (L) Chloride 97 - 105 mmol/L 103 CO2 22 - 30 mmol/L 26 Anion Gap 9 - 18 mmol/L 12 ALT 7 - 38 U/L 12 eGFR- >60 eGFR-All Other Races . >60 Assessment/Plan: G40.109 Partial epilepsy (HCC) (primary encounter diagnosis) Comment: History of focal epilepsy. No reported seizure activity since previous visit. MRI brain from 2012 and MRI/A brain/neck from 2020 available and able to be reviewed with stable ventriculomegaly, however, no other records available at this time. Currently taking Lamictal 50mg BID and Klonopin 2mg QHS without SE or concerns. Will continue current medication regimen. She should maintain seizure precautions and avoid factors that could lower seizure threshold. R20.2 Paresthesias Comment: Patient reporting numbness to bilateral thighs localized to anterior aspect. Can occur intermittently. On assessment, sensation decreased to light touch to anterior aspect of both thighs as well as lateral aspect of right calf. No focal weakness noted. She does report intermittent lumbar pains as well. At this time will proceed with lumbar XR to evaluate for degenerative changes possibly contributing to symptoms. Office Visit on 01/24/22 XR LUMBAR GENERAL 3V AP/LAT/L5-S1 Xi Garcia APRN.ANATOLIY I spent a total of 35 minutes on the date of the service which included preparing to see the patient, [id number] patient care, completing clinical documentation, obtaining and/or reviewing separately obtained history, performing a medically appropriate examination, counseling and educating the patient/family/caregiver and ordering medications, tests, or procedures. PDMP website checked and validated. All prescriptions have been APPROPRIATELY filled. No suspicious activity was identified. January 24, 2022 Xi Garcia APRN.TECHNICAL PUBLICATIONS WRITER documented in this encounter [facility] 12-17-2021 Miscellaneous Notes Pt has not yet scheduled consult with Dr Serrato in Allergy. Clean Platest message to help her schedule appointment if needed. Goldie Moreno LPN documented in this encounter [facility] 06-22-2021 Miscellaneous Notes Patient reports she tested covid + at [facility] ER rapid test on 06-06. Had done a 24 hour test on 06-04, at [facility], and received positive results on 06-07. Had a scheduled appt with Dr. Glaser, to transfer care from a top precipitator operator helper in [place]. The appt with Dr. Glaser was moved back, because they wanted her to wait to see him for 6 weeks after quarantine. Needs refill on atenolol sent to [facility]. Asking if pcp can fill this Rx? Please advise patient. Also reports she developed neuropathy in her whole body since jose luis covid, and asking pcp if this is a normal symptom? Last appt w/pcp: 09-06-20. Next appt with pcp: none documented in this encounter [facility] documented as of this encounter (statuses as of 12/03/2022) [facility] History of Past illness Narrative* Problem Noted Date Resolved Date Rheumatoid arthritis 10/13/2013 12/03/2022 Elevated blood pressure read ing without diagnosis of hypertension 08/25/2007 04/15/2014 Essential hypertension, benign 08/12/2007 1 10/25/2006 documented as of this encounter (statuses as of 12/05/2022) [address]15-2014 History of Past illness Narrative* Problem Noted Date Resolved Date Rheumatoid arthritis 10/13/2013 12/03/2022 Elevated blood pressure read ing without diagnosis of hypertension 08/25/2007 04/15/2014 Essential hypertension, benign 08/12/2007 1 10/25/2006 documented as of this encounter (statuses as of 12/10/2022) [address]15-2014 History of Past illness Narrative* Problem Noted Date Resolved Date Rheumatoid arthritis 10/13/2013 12/03/2022 Elevated blood pressure read ing without diagnosis of hypertension 08/25/2007 04/15/2014 Essential hypertension, benign 08/12/2007 1 10/25/2006 documented as of this encounter (statuses as of 12/12/2022) [address]15-2014 History of Past illness Narrative* Problem Noted Date Resolved Date Rheumatoid arthritis 10/13/2013 12/03/2022 Elevated blood pressure read ing without diagnosis of hypertension 08/25/2007 04/15/2014 Essential hypertension, benign 08/12/2007 1 10/25/2006 documented as of this encounter (statuses as of 12/13/2022) [facility] History of Past illness Narrative* Problem Noted Date Resolved Date Rheumatoid arthritis 10/13/2013 12/03/2022 Elevated blood pressure read ing without diagnosis of hypertension 08/25/2007 04/15/2014 Essential hypertension, benign 08/12/2007 1 10/25/2006 documented as of this encounter (statuses as of 12/16/2022) [facility] History of Past illness Narrative* Problem Noted Date Resolved Date Rheumatoid arthritis 10/13/2013 12/03/2022 Elevated blood pressure read ing without diagnosis of hypertension 08/25/2007 04/15/2014 Essential hypertension, benign 08/12/2007 1 10/25/2006 documented as of this encounter (statuses as of 12/17/2022) [place] [id number] History of Past illness Narrative* Problem Noted Date Resolved Date Rheumatoid arthritis 10/13/2013 12/03/2022 Elevated blood pressure read ing without diagnosis of hypertension 08/25/2007 04/15/2014 Essential hypertension, benign 08/12/2007 1 10/25/2006 documented as of this encounter (statuses as of 01/03/2023) [facility] History of Past illness Narrative* Problem Noted Date Resolved Date Rheumatoid arthritis 10/13/2013 12/03/2022 Elevated blood pressure read ing without diagnosis of hypertension 08/25/2007 04/15/2014 Essential hypertension, benign 08/12/2007 1 10/25/2006 documented as of this encounter (statuses as of 03/06/2023) [facility] History of Past illness Narrative* Problem Noted Date Diagnosed Date Resolved Date Rheumatoid arthritis 10/13/2013 023 Elevated blood pressure read ing without diagnosis of hypertension 08/25/2007 04/15/2014 Essential hypertension, benign 08/12/2007 08/25/2007 documented as of this encounter (statuses as of 04/29/2023) [facility] History of Past illness Narrative* Problem Noted Date Diagnosed Date Resolved Date Rheumatoid arthritis 10/13/2013 023 Elevated blood pressure read ing without diagnosis of hypertension 08/25/2007 04/15/2014 Essential hypertension, benign 08/12/2007 08/25/2007 documented as of this encounter (statuses as of 05/09/2023) [facility] History of Past illness Narrative* Problem Noted Date Diagnosed Date Resolved Date Rheumatoid arthritis 10/13/2013 023 Elevated blood pressure read ing without diagnosis of hypertension 08/25/2007 04/15/2014 Essential hypertension, benign 08/12/2007 08/25/2007 documented as of this encounter (statuses as of 05/17/2023) [facility] History of Past illness Narrative* Problem Noted Date Diagnosed Date Resolved Date Rheumatoid arthritis 10/13/2013 023 Elevated blood pressure read ing without diagnosis of hypertension 08/25/2007 04/15/2014 Essential hypertension, benign 08/12/2007 08/25/2007 documented as of this encounter (statuses as of 05/20/2023) [facility] History of Past illness Narrative* Problem Noted Date Diagnosed Date Resolved Date Rheumatoid arthritis 10/13/2013 023 Elevated blood pressure read ing without diagnosis of hypertension 08/25/2007 04/15/2014 Essential hypertension, benign 08/12/2007 08/25/2007 documented as of this encounter (statuses as of 07/04/2023) [facility] History of Past illness Narrative* Problem Noted Date Diagnosed Date Resolved Date Rheumatoid arthritis 10/13/2013 023 Elevated blood pressure read ing without diagnosis of hypertension 08/25/2007 04/15/2014 Essential hypertension, benign 08/12/2007 08/25/2007 documented as of this encounter (statuses as of 08/04/2023) [facility] History of Past illness Narrative* Problem Noted Date Diagnosed Date Resolved Date Rheumatoid arthritis 10/13/2013 023 Elevated blood pressure read ing without diagnosis of hypertension 08/25/2007 04/15/2014 Essential hypertension, benign 08/12/2007 08/25/2007 documented as of this encounter (statuses as of 11/11/2023) [facility] History of Past illness Narrative* Problem Noted Date Diagnosed Date Resolved Date Rheumatoid arthritis 10/13/2013 023 Elevated blood pressure read ing without diagnosis of hypertension 08/25/2007 04/15/2014 Essential hypertension, benign 08/12/2007 08/25/2007 documented as of this encounter (statuses as of 11/12/2023) [facility] History of Past illness Narrative* Problem Noted Date Diagnosed Date Resolved Date Rheumatoid arthritis 10/13/2013 023 Elevated blood pressure read ing without diagnosis of hypertension 08/25/2007 04/15/2014 Essential hypertension, benign 08/12/2007 08/25/2007 documented as of this encounter (statuses as of 11/17/2023) [place] [id number] History of Past illness Narrative* Problem Noted Date Diagnosed Date Resolved Date Rheumatoid arthritis 10/13/2013 023 Elevated blood pressure read ing without diagnosis of hypertension 08/25/2007 04/15/2014 Essential hypertension, benign 08/12/2007 08/25/2007 documented as of this encounter (statuses as of 11/21/2023) [facility] History of Past illness Narrative* Problem Noted Date Diagnosed Date Resolved Date Rheumatoid arthritis 10/13/2013 023 Elevated blood pressure read ing without diagnosis of hypertension 08/25/2007 04/15/2014 Essential hypertension, benign 08/12/2007 08/25/2007 documented as of this encounter (statuses as of 12/03/2023) [facility] History of Past illness Narrative* Problem Noted Date Diagnosed Date Resolved Date Rheumatoid arthritis 10/13/2013 023 Elevated blood pressure read ing without diagnosis of hypertension 08/25/2007 04/15/2014 Essential hypertension, benign 08/12/2007 08/25/2007 documented as of this encounter (statuses as of 12/04/2023) [address]27-2007 History of Past illness Narrative* Problem Noted Date Resolved Date Elevated blood pressure read ing without diagnosis of hypertension 08/25/2007 04/15/2014 Essential hypertension, benign 08/12/2007 1 10/25/2006 documented as of this encounter (statuses as of 12/17/2021) [facility] History of Past illness Narrative* Problem Noted Date Resolved Date Elevated blood pressure read ing without diagnosis of hypertension 08/25/2007 04/15/2014 Essential hypertension, benign 08/12/200710/25/2006 documented as of this encounter (statuses as of 01/22/2022) [address]27-2007 History of Past illness Narrative* Problem Noted Date Resolved Date Elevated blood pressure read ing without diagnosis of hypertension 08/25/2007 04/15/2014 Essential hypertension, benign 08/12/200710/25/2006 documented as of this encounter (statuses as of 01/24/2022) [facility] History of Past illness Narrative* Problem Noted Date Resolved Date Elevated blood pressure read ing without diagnosis of hypertension 08/25/2007 04/15/2014 Essential hypertension, benign 08/12/200710/25/2006 documented as of this encounter (statuses as of 01/30/2022) [address]27-2007 History of Past illness Narrative* Problem Noted Date Resolved Date Elevated blood pressure read ing without diagnosis of hypertension 08/25/2007 04/15/2014 Essential hypertension, benign 08/12/200710/25/2006 documented as of this encounter (statuses as of 02/22/2022) [address]27-2007 History of Past illness Narrative* Problem Noted Date Resolved Date Elevated blood pressure read ing without diagnosis of hypertension 08/25/2007 04/15/2014 Essential hypertension, benign 08/12/200710/25/2006 documented as of this encounter (statuses as of 02/28/2022) [address] History of Past illness Narrative* Problem Noted Date Resolved Date Elevated blood pressure read ing without diagnosis of hypertension 08/25/2007 04/15/2014 Essential hypertension, benign 08/12/2007 1 10/25/2006 documented as of this encounter (statuses as of 03/12/2022) [address] History of Past illness Narrative* Problem Noted Date Resolved Date Elevated blood pressure read ing without diagnosis of hypertension 08/25/2007 04/15/2014 Essential hypertension, benign 08/12/2007 1 10/25/2006 documented as of this encounter (statuses as of 03/22/2022) [address] History of Past illness Narrative* Problem Noted Date Resolved Date Elevated blood pressure read ing without diagnosis of hypertension 08/25/2007 04/15/2014 Essential hypertension, benign 08/12/200710/25/2006 documented as of this encounter (statuses as of 04/22/2022) [address] History of Past illness Narrative* Problem Noted Date Resolved Date Elevated blood pressure read ing without diagnosis of hypertension 08/25/2007 04/15/2014 Essential hypertension, benign 08/12/2007 1 10/25/2006 documented as of this encounter (statuses as of 04/26/2022) [address] History of Past illness Narrative* Problem Noted Date Resolved Date Elevated blood pressure read ing without diagnosis of hypertension 08/25/2007 04/15/2014 Essential hypertension, benign 08/12/200710/25/2006 documented as of this encounter (statuses as of 07/31/2022) [address] History of Past illness Narrative* Problem Noted Date Resolved Date Elevated blood pressure read ing without diagnosis of hypertension 08/25/2007 04/15/2014 Essential hypertension, benign 08/12/200710/25/2006 documented as of this encounter (statuses as of 10/14/2022) [address] History of Past illness Narrative* Problem Noted Date Resolved Date Elevated blood pressure read ing without diagnosis of hypertension 08/25/2007 04/15/2014 Essential hypertension, benign 08/12/200710/25/2006 documented as of this encounter (statuses as of 10/24/2022) [address] History of Past illness Narrative* Problem Noted Date Resolved Date Elevated blood pressure read ing without diagnosis of hypertension 08/25/2007 04/15/2014 Essential hypertension, benign 08/12/2007 1 10/25/2006 documented as of this encounter (statuses as of 10/25/2022) [address] History of Past illness Narrative* Problem Noted Date Resolved Date Elevated blood pressure read ing without diagnosis of hypertension 08/25/2007 04/15/2014 Essential hypertension, benign 08/12/2007 1 10/25/2006 documented as of this encounter (statuses as of 10/31/2022) [address] History of Past illness Narrative* Problem Noted Date Resolved Date Elevated blood pressure read ing without diagnosis of hypertension 08/25/2007 04/15/2014 Essential hypertension, benign 08/12/200710/25/2006 documented as of this encounter (statuses as of 11/04/2022) [address] History of Past illness Narrative* Problem Noted Date Resolved Date Elevated blood pressure read ing without diagnosis of hypertension 08/25/2007 04/15/2014 Essential hypertension, benign 08/12/200710/25/2006 documented as of this encounter (statuses as of 11/06/2022) [address] History of Past illness Narrative* Problem Noted Date Resolved Date Elevated blood pressure read ing without diagnosis of hypertension 08/25/2007 04/15/2014 Essential hypertension, benign 08/12/200710/25/2006 documented as of this encounter (statuses as of 11/12/2022) [address] History of Past illness Narrative* Problem Noted Date Resolved Date Elevated blood pressure read ing without diagnosis of hypertension 08/25/2007 04/15/2014 Essential hypertension, benign 08/12/200710/25/2006 documented as of this encounter (statuses as of 11/13/2022) [address] History of Past illness Narrative* Problem Noted Date Resolved Date Elevated blood pressure read ing without diagnosis of hypertension 08/25/2007 04/15/2014 Essential hypertension, benign 08/12/200710/25/2006 documented as of this encounter (statuses as of 11/14/2022) [place] [id number] History of Past illness Narrative* Problem Noted Date Resolved Date Elevated blood pressure read ing without diagnosis of hypertension 08/25/2007 04/15/2014 Essential hypertension, benign 08/12/2007 1 10/25/2006 documented as of this encounter (statuses as of 11/18/2022) [address] History of Past illness Narrative* Problem Noted Date Resolved Date Elevated blood pressure read ing without diagnosis of hypertension 08/25/2007 04/15/2014 Essential hypertension, benign 08/12/200710/25/2006 documented as of this encounter (statuses as of 11/21/2022) [address] History of Past illness Narrative* Problem Noted Date Resolved Date Elevated blood pressure read ing without diagnosis of hypertension 08/25/2007 04/15/2014 Essential hypertension, benign 08/12/200710/25/2006 documented as of this encounter (statuses as of 11/21/2022) [address] History of Past illness Narrative* Problem Noted Date Resolved Date Elevated blood pressure read ing without diagnosis of hypertension 08/25/2007 04/15/2014 Essential hypertension, benign 08/12/200710/25/2006 documented as of this encounter (statuses as of 11/25/2022) [address] History of Past illness Narrative* Problem Noted Date Resolved Date Elevated blood pressure read ing without diagnosis of hypertension 08/25/2007 04/15/2014 Essential hypertension, benign 08/12/200710/25/2006 documented as of this encounter (statuses as of 11/28/2022) [address] History of Past illness Narrative* Problem Noted Date Resolved Date Elevated blood pressure read ing without diagnosis of hypertension 08/25/2007 04/15/2014 Essential hypertension, benign 08/12/200710/25/2006 documented as of this encounter (statuses as of 11/28/2022) [address] History of Past illness Narrative* Problem Noted Date Resolved Date Elevated blood pressure read ing without diagnosis of hypertension 08/25/2007 04/15/2014 Essential hypertension, benign 08/12/200710/25/2006 documented as of this encounter (statuses as of 11/29/2022) [address] History of Past illness Narrative* Problem Noted Date Resolved Date Elevated blood pressure read ing without diagnosis of hypertension 08/25/2007 04/15/2014 Essential hypertension, benign 08/12/2007 1 10/25/2006 documented as of this encounter (statuses as of 12/03/2022) [facility] Diagnosis 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, without mention of intractable epilepsy Paresthesias Disturbance of skin sensation [facility] Diagnosis Abnormality of left breast on screening mammogram [facility] Diagnosis Allergic reaction to contrast material, initial encounter- Primary Food sensitivity with gastrointestinal symptoms Seasonal allergic rhinitis due to pollen [facility] Diagnosis Chronic nonallergic rhinitis- Primary Chronic rhinitis Food sensitivity with gastrointestinal symptoms [facility] Diagnosis Partial epilepsy (HCC) 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 with simple partial seizures, without mention of intractable epilepsy [facility] Diagnosis 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, without mention of intractable epilepsy Insomnia, unspecified type Stress at home Unspecified family circumstance [facility] Diagnosis Partial epilepsy (HCC) 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 with simple partial seizures, without mention of intractable epilepsy [facility]* Diagnosis Encounter for screening mammogram for breast cancer [facility] Diagnosis Well adult exam- Primary Routine general medical examination at a health care facility Encounter for immunization Need for other specified prophylactic vaccination against single bacterial disease Vitamin D deficiency Unspecified vitamin D deficiency Screening for thyroid disorder Partial epilepsy (HCC) 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 with simple partial seizures, without mention of intractable epilepsy POTS (postural orthostatic tachycardia syndrome) Tachycardia, unspecified Ehler's-Danlos syndrome [facility] Diagnosis Vitamin D deficiency- Primary Unspecified vitamin D deficiency Iron deficiency anemia, unspecified iron deficiency anemia type [facility] Diagnosis Partial epilepsy (HCC) 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 with simple partial seizures, without mention of intractable epilepsy [facility] Diagnosis Iron deficiency anemia, unspecified iron deficiency anemia type- Primary Iron malabsorption Other specified intestinal malabsorption [facility] Diagnosis Iron deficiency anemia, unspecified iron deficiency anemia type- Primary Iron malabsorption Other specified intestinal malabsorption Chronic diarrhea Diarrhea [facility] Diagnosis Iron deficiency anemia, unspecified iron deficiency anemia type- Primary Iron malabsorption Other specified intestinal malabsorption [facility] Diagnosis Iron deficiency anemia, unspecified iron deficiency anemia type- Primary Iron malabsorption Other specified intestinal malabsorption [facility] Diagnosis Iron deficiency anemia, unspecified iron deficiency anemia type- Primary Iron malabsorption Other specified intestinal malabsorption Chronic diarrhea Diarrhea History of epilepsy Personal history of other disorders of nervous system and sense organs [facility] Diagnosis Iron deficiency anemia, unspecified iron deficiency anemia type- Primary Iron malabsorption Other specified intestinal malabsorption [facility] Diagnosis Iron deficiency anemia, unspecified iron deficiency anemia type- Primary Iron malabsorption Other specified intestinal malabsorption [facility] Diagnosis Iron deficiency anemia, unspecified iron deficiency anemia type- Primary Iron malabsorption Other specified intestinal malabsorption [facility] Diagnosis Iron deficiency anemia, unspecified iron deficiency anemia type- Primary Iron malabsorption Other specified intestinal malabsorption [facility] Diagnosis Partial epilepsy (HCC) 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 with simple partial seizures, without mention of intractable epilepsy [facility] Diagnosis Iron deficiency anemia, unspecified iron deficiency anemia type- Primary Iron malabsorption Other specified intestinal malabsorption [facility] Diagnosis 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, without mention of intractable epilepsy Insomnia, unspecified type Focal seizure (HCC) Other convulsions [facility]* Diagnosis Iron deficiency anemia, unspecified iron deficiency anemia type- Primary Iron malabsorption Other specified intestinal malabsorption [facility] Diagnosis Iron deficiency anemia, unspecified iron deficiency anemia type- Primary Iron malabsorption Other specified intestinal malabsorption [facility]* Diagnosis Partial epilepsy (HCC) 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 with simple partial seizures, without mention of intractable epilepsy [facility] Diagnosis Iron deficiency anemia, unspecified iron deficiency anemia type- Primary Iron malabsorption Other specified intestinal malabsorption [facility] Diagnosis Iron malabsorption- Primary Other specified intestinal malabsorption Iron deficiency anemia, unspecified iron deficiency anemia type [facility]* Diagnosis Partial epilepsy (HCC) 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 with simple partial seizures, without mention of intractable epilepsy [facility] Diagnosis Partial epilepsy (HCC) 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 with simple partial seizures, without mention of intractable epilepsy [facility]* Diagnosis Helicobacter pylori gastritis- Primary Helicobacter pylori (H. pylori) Dysphagia, unspecified type [facility]* Diagnosis Partial epilepsy (HCC) 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 with simple partial seizures, without mention of intractable epilepsy [facility]* Diagnosis Iron deficiency anemia, unspecified iron deficiency anemia type- Primary Family history of ovarian cancer Family history of malignant neoplasm of ovary [facility] Diagnosis Family history of ovarian cancer Family history of malignant neoplasm of ovary [facility]* Diagnosis Encounter for screening mammogram for breast cancer [facility] Diagnosis Iron malabsorption- Primary Other specified intestinal malabsorption Iron deficiency anemia, unspecified iron deficiency anemia type [facility]* Diagnosis Partial epilepsy (HCC) 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 with simple partial seizures, without mention of intractable epilepsy [facility] Diagnosis Iron deficiency anemia, unspecified iron deficiency anemia type- Primary Iron malabsorption Other specified intestinal malabsorption [facility]* Diagnosis Intractable headache, unspecified chronicity pattern, unspecified headache type- Primary Spell of change in speech Other speech disturbance Vision changes Unspecified visual disturbance Other symptoms and signs involving the nervous system Hypersomnia Hypersomnia, unspecified Insomnia, unspecified type History of hydrocephalus Personal history of other disorders of nervous system and sense organs Partial epilepsy (HCC) 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 with simple partial seizures, without mention of intractable epilepsy POTS (postural orthostatic tachycardia syndrome) Tachycardia, unspecified documented in this encounter [facility] for referral (narrative)* Diagnostic Procedure Only (Routine) - Closed Specialty Diagnoses / Procedures Referred By Kiley monroe Referred To Contact XR IMAGING Diagnoses Paresthesias Procedures XR LUMBAR GENERAL 3V AP/LAT/L5-S1 RADEX SPINE LUMBOSACRAL 2/3 VIEWS Xi Garcia APRN.CNP [address] [place] [address] Xr Imaging Referral ID Status Reason Start Date Expiration Date V isits Requested Visits Authorized [id number] Closed Auto-Generate d Referral 01/24/2022 02/23/2023 1 1 [facility] for referral (narrative)* Diagnostic Procedure Only (Routine) - Pending Review Specialty Diagnoses / Procedures Referred By Kiley monroe Referred To Contact BR IMAGING Diagnoses Encounter for screening mammogram for breast cancer Procedures COURTNEY SCREENING SCREENING MAMMOGRAPHY BI 2-VIEW BREAST INC CAD Bobo Rodriguez DO [address] [place] [address] [facility] [address] [place] [address] Referral ID Status Reason Start Date Expiration Date Visits Requested Visits Authorized [id number] Pending Review Auto-Generat ed Referral 10/09/2022 11/08/2023 1 1 [facility] for referral (narrative)* Diagnostic Procedure Only (Routine) - Pending Review Specialty Diagnoses / Procedures Referred By Kiahac fer Referred To Contact BR IMAGING Diagnoses Well adult exam Procedures COURTNEY SCREENING W GERALD SCREENING DIGITAL BREAST TOMOSYNTHESIS BI SCREENING MAMMOGRAPHY BI 2-VIEW BREAST INC CAD Sandi Alexander APRN.TECHNICAL PUBLICATIONS WRITER [address] [place] [address] [facility] [address] [employer] [place] [address] Referral ID Status Reason Start Date Expiration Date Visits Requested Visits Authorized [id number] Pending Review Auto-Generat ed Referral 10/24/2022 11/23/2023 1 1 [facility] for referral (narrative)* Diagnostic Procedure Only (Routine) - Closed Specialty Diagnoses / Procedures Referred By Contac t Referred To Contact BR IMAGING Diagnoses Encounter for screening mammogram for breast cancer Procedures COURTNEY SCREENING SCREENING MAMMOGRAPHY BI 2-VIEW BREAST INC CAD Bobo Rodriguez, DO [address] [place] [address] [facility] [address] [place] [address] Referral ID Status Reason Start Date Expiration Date V isits Requested Visits Authorized [id number] Closed Auto-Generate d Referral 10/09/2022 11/08/2023 1 1 [facility] for visit Narrative* Diagnostic Procedure Only (Routine) - Closed Specialty Diagnoses / Procedures Referred By Contac t Referred To Contact BR IMAGING Diagnoses Abnormality of left breast on screening mammogram Procedures COURTNEY DIAGNOSTIC LT DIAGNOSTIC MAMMOGRAPHY COMPUTER-AIDED DETCJ UNI Bobo Rodriguez, DO [address] [place] [address] [facility] [address] [place] [address] Referral ID Status Reason Start Date Expiration Date V isits Requested Visits Authorized [id number] Closed Auto-Generate d Referral 09/04/2021 10/04/2022 1 1 [facility] for visit Narrative* Diagnostic Procedure Only (Routine) - Closed Specialty Diagnoses / Procedures Referred By Contac t Referred To Contact BR IMAGING Diagnoses Encounter for screening mammogram for breast cancer Procedures COURTNEY SCREENING SCREENING MAMMOGRAPHY BI 2-VIEW BREAST INC CAD Rodriguez, Bobo L, DO [address] [place] [address] [facility] [address] [employer] [place] [address] Referral ID Status Reason Start Date Expiration Date V isits Requested Visits Authorized [id number] Closed Auto-Generate d Referral 10/09/2022 11/08/2023 1 [facility] Diagnostic Procedure Only (Routine) - Closed Specialty Diagnoses / Procedures Referred By Kiley t Referred To Contact BR IMAGING Diagnoses Well adult exam Procedures COURTNEY SCREENING W GERALD SCREENING DIGITAL BREAST TOMOSYNTHESIS BI SCREENING MAMMOGRAPHY BI 2-VIEW BREAST INC CAD Sandi Alexander APRN.TECHNICAL PUBLICATIONS WRITER [address] [place] [address] [facility] [address] [employer] [place] [address] Referral ID Status Reason Start Date Expiration Date V isits Requested Visits Authorized [id number] Closed Auto-Generate d Referral 10/24/2022 11/23/2023 1 1 [facility] Family History No Family History Records FoundUnknown Family Member Name Dates Details Family history of hypertensi on(V17.49, Z82.49) Comments:Multiple Family Mem bers Status:Active Grandmother Name Dates Details Family history of malignant neoplasm(V16.9, Z80.9) Status:Active Grandfather Name Dates Details Family history of malignant neoplasm(V16.9, Z80.9) Status:Active Grandmother Name Dates Details Family history of malignant neoplasm(V16.9, Z80.9) Status:Active Grandparent Name Dates Details Family history of arthritis( V17.7, Z82.61) Status:Active Father Name Dates Details Family history of malignant neoplasm(V16.9, Z80.9) Status:Active Family history of Alcohol ad diction(303.90, F10.20) Status:Active Grandfather Name Dates Details Family history of malignant neoplasm(V16.9, Z80.9) Status:Active Summary Purpose Advance Directives No Advanced Directives Records FoundNo Advanced Directives Records FoundNo Advanced Directives Records FoundNo Advanced Directives Records FoundNo Advanced Directives Records FoundNo Advanced Directives Records Found Reason for Referral Specialty Diagnoses / Procedures Referred By Contac t Referred To Contact Hematology Diagnoses Iron deficiency anemia, unspecified iron deficiency anemia type Procedures CONSULT TO HEMATOLOGY OFFICE/OUTPATIENT [facility] 60-74 MINUTES Sandi Alexander APRN.TECHNICAL PUBLICATIONS WRITER [address] [place], [place] [address] Referral ID Status Reason Start Date Expiration Date Visits Requested Visits Authorized [id number] Authorized PCP Requested Referral 10/25/2022 10/25/2023 1 1 Specialty Diagnoses / Procedures Referred By Contac t Referred To Contact Gastroenterology Diagnoses Iron deficiency anemia, unspecified iron deficiency anemia type Iron malabsorption Chronic diarrhea Procedures CONSULT TO GASTROENTEROLOGY OFFICE/OUTPATIENT [facility] 60-74 MINUTES Mushtaq Rehman, [address] [place] [address] Referral ID Status Reason Start Date Expiration Date Visits Requested Visits Authorized [id number] Authorized PCP Requested Referral 11/04/2022 11/04/2023 1 1 Specialty Diagnoses / Procedures Referred By Contac t Referred To Contact Diagnoses Family history of ovarian cancer Procedures CONSULT TO MEDICAL GENETICS - CANCER MEDICAL GENETICS COUNSELING EACH 30 MINUTES Mushtaq Rehman DO [address] [place] [address] [facility] [address] [place] [address] Referral ID Status Reason Start Date Expiration Date Visits Requested Visits Authorized [id number] Authorized PCP Requested Referral Auto-Generate d Referral 05/19/2023 05/18/2024 1 1 Specialty Diagnoses / Procedures Referred By Contac t Referred To Contact MR IMAGING Diagnoses Intractable headache, unspecified chronicity pattern, unspecified headache type Spell of change in speech Vision changes Other symptoms and signs involving the nervous system Procedures MRI BRAIN WO IVCON MRI BRAIN BRAIN STEM W/O CONTRAST MATERIAL Vijay Petersen Jr., [place] [address] [address] [place] [id number] Referral ID Status Reason Start Date Expiration Date Visits Requested Visits Authorized [id number] Pending Review Auto-Generat ed Referral 12/02/2023 12/31/2024 1 1 Medications Administered Section Inactive Administered Medications - up to 3 most recent administrations Medication Order MAR Action Action Date Dose Rate Site iron sucrose 200 mg in NaCl 0.9% 100ml (VENOFER) 200 mg, INTRAVENOUS, at 400 mL/hr, Administer over 15 Minutes, ONCE, 1 dose, On [facility] 11/14/22 at 1500, Please conduct a 30 minute post dose observation. New Bag/Syringe/Bottle 11/14/2022 3:04 PM EST 200 mg 400 mL/hr Inactive Administered Medications - up to 3 most recent administrations Medication Order MAR Action Action Date Dose Rate Site iron sucrose 200 mg in NaCl 0.9% 100ml (VENOFER) 200 mg, INTRAVENOUS, at 400 mL/hr, Administer over 15 Minutes, ONCE, 1 dose, On [facility] 11/18/22 at 1400, Please conduct a 30 minute post dose observation. New Bag/Syringe/Bottle 11/18/2022 2:10 PM EST 200 mg 400 mL/hr Inactive Administered Medications - up to 3 most recent administrations Medication Order MAR Action Action Date Dose Rate Site iron sucrose 200 mg in NaCl 0.9% 100ml (VENOFER) 200 mg, INTRAVENOUS, at 400 mL/hr, Administer over 15 Minutes, ONCE, 1 dose, On Faith 11/21/22 at 1330, Please conduct a 30 minute post dose observation. New Bag/Syringe/Bottle 11/21/2022 1:22 PM EST 200 mg 400 mL/hr Inactive Administered Medications - up to 3 most recent administrations Medication Order MAR Action Action Date Dose Rate Site iron sucrose 200 mg in NaCl 0.9% 100ml (VENOFER) 200 mg, INTRAVENOUS, at 400 mL/hr, Administer over 15 Minutes, ONCE, 1 dose, On Fri11/25/22 at 1330, Please conduct a 30 minute post dose observation. New Bag/Syringe/Bottle 11/25/2022 1:40 PM EST 200 mg 400 mL/hr Inactive Administered Medications - up to 3 most recent administrations Medication Order MAR Action Action Date Dose Rate Site iron sucrose 200 mg in NaCl 0.9% 100ml (VENOFER) 200 mg, INTRAVENOUS, at 400 mL/hr, Administer over 15 Minutes, ONCE, 1 dose, On Faith 11/28/22 at 0900, Please conduct a 30 minute post dose observation. New Bag/Syringe/Bottle 11/28/2022 8:55 AM EST 200 mg 400 mL/hr Inactive Administered Medications - up to 3 most recent administrations Medication Order MAR Action Action Date Dose Rate Site iron sucrose 200 mg in NaCl 0.9% 100ml (VENOFER) 200 mg, INTRAVENOUS, at 400 mL/hr, Administer over 15 Minutes, ONCE, 1 dose, On Fri12/02/22 at 1530, Please conduct a 30 minute post dose observation. New Bag/Syringe/Bottle 12/02/2022 3:37 PM EST 200 mg 400 mL/hr Inactive Administered Medications - up to 3 most recent administrations Medication Order MAR Action Action Date Dose Rate Site iron sucrose 200 mg in NaCl 0.9% 100ml (VENOFER) 200 mg, INTRAVENOUS, at 400 mL/hr, Administer over 15 Minutes, ONCE, 1 dose, On Faith 12/05/22 at 1000, Please conduct a 30 minute post dose observation. New Bag/Syringe/Bottle 12/05/2022 10:10 AM EST 200 mg 400 mL/hr Inactive Administered Medications - up to 3 most recent administrations Medication Order MAR Action Action Date Dose Rate Site iron sucrose 200 mg in NaCl 0.9% 100ml (VENOFER) 200 mg, INTRAVENOUS, at 400 mL/hr, Administer over 15 Minutes, ONCE, 1 dose, On Fri12/09/22 at 1600, Please conduct a 30 minute post dose observation. New Bag/Syringe/Bottle 12/09/2022 3:40 PM EDT 200 mg 400 mL/hr Inactive Administered Medications - up to 3 most recent administrations Medication Order MAR Action Action Date Dose Rate Site iron sucrose 200 mg in NaCl 0.9% 100ml (VENOFER) 200 mg, INTRAVENOUS, at 400 mL/hr, Administer over 15 Minutes, ONCE, 1 dose, On Fri12/16/22 at 1330, Please conduct a 30 minute post dose observation. New Bag/Syringe/Bottle 12/16/2022 1:38 PM EDT 200 mg 400 mL/hr Additional Source Comments INFORMATION SOURCE (unrecogn ized section and content) DATE CREATED AUTHOR AUTHOR'S ORGANIZ ATION 11/22/2020 [facility] DATE CREATED AUTHOR AUTHOR'S ORGANIZ ATION 12/22/2020 [facility] DATE CREATED AUTHOR AUTHOR'S ORGANIZ ATION 04/05/2023 [facility] DATE CREATED AUTHOR AUTHOR'S ORGANIZ ATION 12/04/[address] [facility] DATE CREATED AUTHOR AUTHOR'S ORGANIZ ATION 12/04/2023 [facility] Source Comments (unrecognize d section and content) In the event this informatio n is protected by the Federal Confidentiality of Alcohol and Drug Abuse Patient Records regulations: The Federal rules restrict any use of the information to criminally investigate or prosecute any alcohol or drug abuse patient.[facility] Hospital[facility] the event this information is protected by the Federal Confidentiality of Alcohol and Drug Abuse Patient Records regulations: The Federal rules restrict any use of the information to criminally investigate or prosecute any alcohol or drug abuse patient.[facility] HospitalIn the event this information is protected by the Federal Confidentiality of Alcohol and Drug Abuse Patient Records regulations: The Federal rules restrict any use of the information to criminally investigate or prosecute any alcohol or drug abuse patient.[facility] HospitalIn the event this information is protected by the Federal Confidentiality of Alcohol and Drug Abuse Patient Records regulations: The Federal rules restrict any use of the information to criminally investigate or prosecute any alcohol or drug abuse patient.[facility] HospitalIn the event this information is protected by the Federal Confidentiality of Alcohol and Drug Abuse Patient Records regulations: The Federal rules restrict any use of the information to criminally investigate or prosecute any alcohol or drug abuse patient.[facility] HospitalIn the event this information is protected by the Federal Confidentiality of Alcohol and Drug Abuse Patient Records regulations: The Federal rules restrict any use of the information to criminally investigate or prosecute any alcohol or drug abuse patient.[facility] HospitalIn the event this information is protected by the Federal Confidentiality of Alcohol and Drug Abuse Patient Records regulations: The Federal rules restrict any use of the information to criminally investigate or prosecute any alcohol or drug abuse patient.[facility] HospitalIn the event this information is protected by the Federal Confidentiality of Alcohol and Drug Abuse Patient Records regulations: The Federal rules restrict any use of the information to criminally investigate or prosecute any alcohol or drug abuse patient.[facility] HospitalIn the event this information is protected by the Federal Confidentiality of Alcohol and Drug Abuse Patient Records regulations: The Federal rules restrict any use of the information to criminally investigate or prosecute any alcohol or drug abuse patient.[facility] HospitalIn the event this information is protected by the Federal Confidentiality of Alcohol and Drug Abuse Patient Records regulations: The Federal rules restrict any use of the information to criminally investigate or prosecute any alcohol or drug abuse patient.[facility] HospitalIn the event this information is protected by the Federal Confidentiality of Alcohol and Drug Abuse Patient Records regulations: The Federal rules restrict any use of the information to criminally investigate or prosecute any alcohol or drug abuse patient.[facility] HospitalIn the event this information is protected by the Federal Confidentiality of Alcohol and Drug Abuse Patient Records regulations: The Federal rules restrict any use of the information to criminally investigate or prosecute any alcohol or drug abuse patient.[facility] HospitalIn the event this information is protected by the Federal Confidentiality of Alcohol and Drug Abuse Patient Records regulations: The Federal rules restrict any use of the information to criminally investigate or prosecute any alcohol or drug abuse patient.[facility] HospitalIn the event this information is protected by the Federal Confidentiality of Alcohol and Drug Abuse Patient Records regulations: The Federal rules restrict any use of the information to criminally investigate or prosecute any alcohol or drug abuse patient.[facility] HospitalIn the event this information is protected by the Federal Confidentiality of Alcohol and Drug Abuse Patient Records regulations: The Federal rules restrict any use of the information to criminally investigate or prosecute any alcohol or drug abuse patient.[facility] HospitalIn the event this information is protected by the Federal Confidentiality of Alcohol and Drug Abuse Patient Records regulations: The Federal rules restrict any use of the information to criminally investigate or prosecute any alcohol or drug abuse patient.[facility] HospitalIn the event this information is protected by the Federal Confidentiality of Alcohol and Drug Abuse Patient Records regulations: The Federal rules restrict any use of the information to criminally investigate or prosecute any alcohol or drug abuse patient.[facility] HospitalIn the event this information is protected by the Federal Confidentiality of Alcohol and Drug Abuse Patient Records regulations: The Federal rules restrict any use of the information to criminally investigate or prosecute any alcohol or drug abuse patient.[facility] HospitalIn the event this information is protected by the Federal Confidentiality of Alcohol and Drug Abuse Patient Records regulations: The Federal rules restrict any use of the information to criminally investigate or prosecute any alcohol or drug abuse patient.[facility] HospitalIn the event this information is protected by the Federal Confidentiality of Alcohol and Drug Abuse Patient Records regulations: The Federal rules restrict any use of the information to criminally investigate or prosecute any alcohol or drug abuse patient.[facility] HospitalIn the event this information is protected by the Federal Confidentiality of Alcohol and Drug Abuse Patient Records regulations: The Federal rules restrict any use of the information to criminally investigate or prosecute any alcohol or drug abuse patient.[facility] HospitalIn the event this information is protected by the Federal Confidentiality of Alcohol and Drug Abuse Patient Records regulations: The Federal rules restrict any use of the information to criminally investigate or prosecute any alcohol or drug abuse patient.[facility] HospitalIn the event this information is protected by the Federal Confidentiality of Alcohol and Drug Abuse Patient Records regulations: The Federal rules restrict any use of the information to criminally investigate or prosecute any alcohol or drug abuse patient.[facility] HospitalIn the event this information is protected by the Federal Confidentiality of Alcohol and Drug Abuse Patient Records regulations: The Federal rules restrict any use of the information to criminally investigate or prosecute any alcohol or drug abuse patient.[facility] HospitalIn the event this information is protected by the Federal Confidentiality of Alcohol and Drug Abuse Patient Records regulations: The Federal rules restrict any use of the information to criminally investigate or prosecute any alcohol or drug abuse patient.[facility] HospitalIn the event this information is protected by the Federal Confidentiality of Alcohol and Drug Abuse Patient Records regulations: The Federal rules restrict any use of the information to criminally investigate or prosecute any alcohol or drug abuse patient.[facility] HospitalIn the event this information is protected by the Federal Confidentiality of Alcohol and Drug Abuse Patient Records regulations: The Federal rules restrict any use of the information to criminally investigate or prosecute any alcohol or drug abuse patient.[facility] HospitalIn the event this information is protected by the Federal Confidentiality of Alcohol and Drug Abuse Patient Records regulations: The Federal rules restrict any use of the information to criminally investigate or prosecute any alcohol or drug abuse patient.[facility] HospitalIn the event this information is protected by the Federal Confidentiality of Alcohol and Drug Abuse Patient Records regulations: The Federal rules restrict any use of the information to criminally investigate or prosecute any alcohol or drug abuse patient.[facility] HospitalIn the event this information is protected by the Federal Confidentiality of Alcohol and Drug Abuse Patient Records regulations: The Federal rules restrict any use of the information to criminally investigate or prosecute any alcohol or drug abuse patient.[facility] HospitalIn the event this information is protected by the Federal Confidentiality of Alcohol and Drug Abuse Patient Records regulations: The Federal rules restrict any use of the information to criminally investigate or prosecute any alcohol or drug abuse patient.[facility] HospitalIn the event this information is protected by the Federal Confidentiality of Alcohol and Drug Abuse Patient Records regulations: The Federal rules restrict any use of the information to criminally investigate or prosecute any alcohol or drug abuse patient.[facility] HospitalIn the event this information is protected by the Federal Confidentiality of Alcohol and Drug Abuse Patient Records regulations: The Federal rules restrict any use of the information to criminally investigate or prosecute any alcohol or drug abuse patient.[facility] HospitalIn the event this information is protected by the Federal Confidentiality of Alcohol and Drug Abuse Patient Records regulations: The Federal rules restrict any use of the information to criminally investigate or prosecute any alcohol or drug abuse patient.[facility] HospitalIn the event this information is protected by the Federal Confidentiality of Alcohol and Drug Abuse Patient Records regulations: The Federal rules restrict any use of the information to criminally investigate or prosecute any alcohol or drug abuse patient.[facility] HospitalIn the event this information is protected by the Federal Confidentiality of Alcohol and Drug Abuse Patient Records regulations: The Federal rules restrict any use of the information to criminally investigate or prosecute any alcohol or drug abuse patient.[facility] HospitalIn the event this information is protected by the Federal Confidentiality of Alcohol and Drug Abuse Patient Records regulations: The Federal rules restrict any use of the information to criminally investigate or prosecute any alcohol or drug abuse patient.[facility] HospitalIn the event this information is protected by the Federal Confidentiality of Alcohol and Drug Abuse Patient Records regulations: The Federal rules restrict any use of the information to criminally investigate or prosecute any alcohol or drug abuse patient.[facility] HospitalIn the event this information is protected by the Federal Confidentiality of Alcohol and Drug Abuse Patient Records regulations: The Federal rules restrict any use of the information to criminally investigate or prosecute any alcohol or drug abuse patient.[facility] HospitalIn the event this information is protected by the Federal Confidentiality of Alcohol and Drug Abuse Patient Records regulations: The Federal rules restrict any use of the information to criminally investigate or prosecute any alcohol or drug abuse patient.[facility] HospitalIn the event this information is protected by the Federal Confidentiality of Alcohol and Drug Abuse Patient Records regulations: The Federal rules restrict any use of the information to criminally investigate or prosecute any alcohol or drug abuse patient.[facility] HospitalIn the event this information is protected by the Federal Confidentiality of Alcohol and Drug Abuse Patient Records regulations: The Federal rules restrict any use of the information to criminally investigate or prosecute any alcohol or drug abuse patient.[facility] HospitalIn the event this information is protected by the Federal Confidentiality of Alcohol and Drug Abuse Patient Records regulations: The Federal rules restrict any use of the information to criminally investigate or prosecute any alcohol or drug abuse patient.[facility] HospitalIn the event this information is protected by the Federal Confidentiality of Alcohol and Drug Abuse Patient Records regulations: The Federal rules restrict any use of the information to criminally investigate or prosecute any alcohol or drug abuse patient.[facility] HospitalIn the event this information is protected by the Federal Confidentiality of Alcohol and Drug Abuse Patient Records regulations: The Federal rules restrict any use of the information to criminally investigate or prosecute any alcohol or drug abuse patient.[facility] HospitalIn the event this information is protected by the Federal Confidentiality of Alcohol and Drug Abuse Patient Records regulations: The Federal rules restrict any use of the information to criminally investigate or prosecute any alcohol or drug abuse patient.[facility] HospitalIn the event this information is protected by the Federal Confidentiality of Alcohol and Drug Abuse Patient Records regulations: The Federal rules restrict any use of the information to criminally investigate or prosecute any alcohol or drug abuse patient.[facility] HospitalIn the event this information is protected by the Federal Confidentiality of Alcohol and Drug Abuse Patient Records regulations: The Federal rules restrict any use of the information to criminally investigate or prosecute any alcohol or drug abuse patient.[facility] HospitalIn the event this information is protected by the Federal Confidentiality of Alcohol and Drug Abuse Patient Records regulations: The Federal rules restrict any use of the information to criminally investigate or prosecute any alcohol or drug abuse patient.[facility] HospitalIn the event this information is protected by the Federal Confidentiality of Alcohol and Drug Abuse Patient Records regulations: The Federal rules restrict any use of the information to criminally investigate or prosecute any alcohol or drug abuse patient.[facility] Care Teams (unrecognized sec tion and content) Desktop Support Specialist Relationship Specialty Start Date End Date Bobo Rodriguez, DO [address] [place] [address] PCP - General Family Practice 10/13/13 Viajy Petersen Jr., MD [address] [facility] [address] [place] [phone] Physician Neurology 06/12/15 Desktop Support Specialist Relationship Specialty Start Date End Date Bobo Rodriguez, DO [address] [place] [address] PCP - General Family Practice 10/13/13 Vijay Petersen Jr., MD [address] [facility] [address] [place] [phone] Physician Neurology 06/12/15 Desktop Support Specialist Relationship Specialty Start Date End Date Bobo Rodriguez, DO [address] [place] [address] PCP - General Family Practice 10/13/13 Vijay Petersen Jr., MD [address] [facility] [address] [place] [phone] Physician Neurology 06/12/15 Desktop Support Specialist Relationship Specialty Start Date End Date Bobo Rodriguez, DO [address] [place] [address] PCP - General Family Practice 10/13/13 Vijay Petersen Jr., MD [address] [facility] [address] [place] [phone] Physician Neurology 06/12/15 Desktop Support Specialist Relationship Specialty Start Date End Date Bobo Rodriguez, DO [address] [place] [address] PCP - General Family Practice 10/13/13 Vijay Petersen Jr., MD [address] [place] [address] [place] [address] Physician Neurology 06/12/15 Desktop Support Specialist Relationship Specialty Start Date End Date Bobo Rodriguez, DO [address] [place] [address] PCP - General Family Practice 10/13/13 Vijay Petersen Jr., MD [address] [place] [address] [place] [address] Physician Neurology 06/12/15 Desktop Support Specialist Relationship Specialty Start Date End Date Bobo Rodriguez, DO [address] [facility] [place] [address] PCP - General Family Practice 10/13/13 Vijay Petersen Jr., MD [address] [place] [address] [place] [address] Physician Neurology 06/12/15 Desktop Support Specialist Relationship Specialty Start Date End Date Bobo Rodriguez, DO [address] [place] [address] PCP - General Family Practice 10/13/13 Vijay Petersen Jr., MD [address] [place] [address] [place] [address] Physician Neurology 06/12/15 Desktop Support Specialist Relationship Specialty Start Date End Date Bobo Rodriguez, DO [address] [place] [address] PCP - General Family Medicine 10/13/13 Vijay Petersen Jr., MD [address] [facility] [address] [place] [phone] Physician Neurology 06/12/15 Desktop Support Specialist Relationship Specialty Start Date End Date Bobo Rodriguez, DO [address] [place] [address] PCP - General Family Medicine 10/13/13 Vijay Petersen Jr., MD [address] [facility] [address] [place] [phone] Physician Neurology 06/12/15 Desktop Support Specialist Relationship Specialty Start Date End Date Bobo Rodriguez, DO [address] [place] [address] PCP - General Family Medicine 10/13/13 Vijay Petersen Jr., MD [address] [facility] [address] [place] [phone] Physician Neurology 06/12/15 Desktop Support Specialist Relationship Specialty Start Date End Date Bobo Rodriguez, DO [address] [place] [address] PCP - General Family Medicine 10/13/13 Vijay Petersen Jr., MD [address] [facility] [address] [place] [phone] Physician Neurology 06/12/15 Desktop Support Specialist Relationship Specialty Start Date End Date Bobo Rodriguez, DO [address] [place] [address] PCP - General Family Medicine 10/13/13 Vijay Petersen Jr., MD [address] [facility] [address] [place] [phone] Physician Neurology 06/12/15 Desktop Support Specialist Relationship Specialty Start Date End Date Bobo Rodriguez, DO [address] [place] [address] PCP - General Family Medicine 10/13/13 Vijay Petersen Jr., MD [address] [place] [address] [place] [address] Physician Neurology 06/12/15 Desktop Support Specialist Relationship Specialty Start Date End Date Bobo Rodriguez, DO [address] [facility] [place] [address] PCP - General Family Medicine 10/13/13 Vijay Petersen Jr., MD [address] [place] [address] [place] [address] Physician Neurology 06/12/15 Desktop Support Specialist Relationship Specialty Start Date End Date Bobo Rodriguez, DO [address] [facility] [place] [address] PCP - General Family Medicine 10/13/13 Vijay Petersen Jr., MD [address] [place] [address] [place] [address] Physician Neurology 06/12/15 Desktop Support Specialist Relationship Specialty Start Date End Date Bobo Rodriguez, DO [address] [facility] [place] [address] PCP - General Family Medicine 10/13/13 Vijay Petersen Jr., MD [address] [place] [address] [place] [address] Physician Neurology 06/12/15 Desktop Support Specialist Relationship Specialty Start Date End Date Bobo Rodriguez, DO [address] [facility] [place] [address] PCP - General Family Medicine 10/13/13 Vijay Petersen Jr., MD [address] [facility] [address] [place] [phone] Physician Neurology 06/12/15 Desktop Support Specialist Relationship Specialty Start Date End Date Bobo Rodriguez, DO [address] [place] [address] PCP - General Family Medicine 10/13/13 Vijay Petersen Jr., MD [address] [facility] [address] [place] [phone] Physician Neurology 06/12/15 Desktop Support Specialist Relationship Specialty Start Date End Date Bobo Rodriguez, DO [address] [place] [address] PCP - General Family Medicine 10/13/13 Vijay Petersen Jr., MD [address] [facility] [address] [place] [phone] Physician Neurology 06/12/15 Desktop Support Specialist Relationship Specialty Start Date End Date Bobo Rodriguez, DO [address] [place] [address] PCP - General Family Medicine 10/13/13 Vijay Petersen Jr., MD [address] [facility] [address] [place] [phone] Physician Neurology 06/12/15 Desktop Support Specialist Relationship Specialty Start Date End Date Bobo Rodriguez, DO [address] [place] [address] PCP - General Family Medicine 10/13/13 Vijay Petersen Jr., MD [address] [facility] [address] [place] [address] Physician Neurology 06/12/15 Desktop Support Specialist Relationship Specialty Start Date End Date Bobo oRdriguez, DO [address] [place] [address] PCP - General Family Medicine 10/13/13 Vijay Petersen Jr., MD [address] [place] [address] [place] [address] Physician Neurology 06/12/15 Desktop Support Specialist Relationship Specialty Start Date End Date Bobo Rodriguez, DO [address] [place] [address] PCP - General Family Medicine 10/13/13 Vijay Petersen Jr., MD [address] [place] [address] [place] [address] Physician Neurology 06/12/15 Desktop Support Specialist Relationship Specialty Start Date End Date Bobo Rodriguez, DO [address] [facility] [place] [address] PCP - General Family Medicine 10/13/13 Vijay Petersen Jr., MD [address] [place] [address] Physician Neurology 06/12/15 Desktop Support Specialist Relationship Specialty Start Date End Date Bobo Rodriguez, DO [address] [facility] [place] [address] PCP - General Family Medicine 10/13/13 Vijay Petersen Jr., MD [address] [place] [address] Physician Neurology 06/12/15 Desktop Support Specialist Relationship Specialty Start Date End Date Bobo Rodriguez, DO [address] [place] [address] PCP - General Family Medicine 10/13/13 Vijay Petersen Jr., MD [address] [facility] [address] [place] [phone] Physician Neurology 06/12/15 Desktop Support Specialist Relationship Specialty Start Date End Date Bobo Rodriguez DO [address] [place] [address] PCP - General Family Medicine 10/13/13 Vijay Petersen Jr., MD [address] [facility] [address] [place] [phone] Physician Neurology 06/12/15 Desktop Support Specialist Relationship Specialty Start Date End Date Bobo Rodriguez DO [address] [place] [address] PCP - General Family Medicine 10/13/13 Vijay Petersen Jr., MD [address] [facility] [address] [place] [phone] Physician Neurology 06/12/15 Desktop Support Specialist Relationship Specialty Start Date End Date Bobo Rodriguez DO [address] [place] [address] PCP - General Family Medicine 10/13/13 Vijay Petersen Jr., MD [address] [facility] [address] [place] [phone] Physician Neurology 06/12/15 Desktop Support Specialist Relationship Specialty Start Date End Date Bobo Rodriguez DO [address] [place] [address] PCP - General Family Medicine 10/13/13 Vijay Petersen Jr., MD [address] [facility] [address] [place] [address] Physician Neurology 06/12/15 Desktop Support Specialist Relationship Specialty Start Date End Date Bobo Rodriguez DO [address] [place], [place] [address] PCP - General Family Medicine 10/13/13 Vijay Petersen Jr., MD [address] [facility] [address] [place] [phone] Physician Neurology 06/12/15 Desktop Support Specialist Relationship Specialty Start Date End Date Bobo Rodriguez DO [address] [place], [place] [address] PCP - General Family Medicine 10/13/13 Vijay Petersen Jr., MD [address] [phone] Physician Neurology 06/12/15 Desktop Support Specialist Relationship Specialty Start Date End Date Bobo Rodriguez DO [address] [place], [place] [address] PCP - General Family Medicine 10/13/13 Vijay Petersen Jr., MD [address] [phone] Physician Neurology 06/12/15 Desktop Support Specialist Relationship Specialty Start Date End Date Bobo Rodriguez DO [address] [place], [place] [address] PCP - General Family Medicine 10/13/13 Vijay Petersen Jr., MD [address] [address] Physician Neurology 06/12/15 Desktop Support Specialist Relationship Specialty Start Date End Date Bobo Rodriguez DO [address] [place], [place] [address] PCP - General Family Medicine 10/13/13 Vijay Petersen Jr., MD [address] [facility] [address] [place] [phone] Physician Neurology 06/12/15 Desktop Support Specialist Relationship Specialty Start Date End Date Bobo Rodriguez DO [address] [place], [place] [address] PCP - General Family Medicine 10/13/13 Vijay Petersen Jr., MD [address] [phone] Physician Neurology 06/12/15 Desktop Support Specialist Relationship Specialty Start Date End Date Bobo Rodriguez DO [address] [place], [place] [address] PCP - General Family Medicine 10/13/13 Vijay Petersen Jr., MD [address] [phone] Physician Neurology 06/12/15 Desktop Support Specialist Relationship Specialty Start Date End Date Bobo Rodriguez DO [address] [place], [place] [address] PCP - General Family Medicine 10/13/13 Vijay Petersen Jr., MD [address] [phone] Physician Neurology 06/12/15 Reason for Visit (unrecogniz ed section and content) Specialty Diagnoses / Procedures Referred By Contac t Referred To Contact Diagnoses Iron deficiency anemia, unspecified iron deficiency anemia type Iron malabsorption Procedures IRON SUCROSE INJECTION PER 1 MG Mushtaq Rehman, DO [address] [place] [address] [facility] [address] [place] [address] Referral ID Status Reason Start Date Expiration Date V isits Requested Visits Authorized [id number] Authorized 11/04/2022 09/28/2023 99 99 Reason Onset Date Comments Refill Request 06/22/2021 Reason Comments Established NI Patient 3 month follow up Epilepsy Reason Comments Medical information Reason Comments Food Intolerance Specialty Diagnoses / Procedures Referred By Contac t Referred To Contact Allergy Diagnoses Food sensitivity with gastrointestinal symptoms Procedures CONSULT TO ALLERGY/IMMUNOLOGY OFFICE/OUTPATIENT [facility] 60-74 MINUTES Vijay Petersen Jr., MD [address] [address] [place] [address] [place] [address] Referral ID Status Reason Start Date Expiration Date V isits Requested Visits Authorized [id number] Closed PCP Requested Referral 10/22/2021 10/22/2022 1 1 Reason Comments Allergy Skin Testing foods and 40 panel Reason Onset Date Comments Refill Request 04/22/2022 Reason Comments F/U 3 Month Reason Onset Date Comments Refill Request 07/31/2022 Reason Comments Physical Forms Reason Comments Results Reason Onset Date Comments Refill Request 10/31/2022 Reason Comments New Patient Evaluation Specialty Diagnoses / Procedures Referred By Contac t Referred To Contact Hematology Diagnoses Iron deficiency anemia, unspecified iron deficiency anemia type Procedures CONSULT TO HEMATOLOGY OFFICE/OUTPATIENT [facility] 60-74 MINUTES Sandi Alexander APRN.[employer] [address] [place] [address] Referral ID Status Reason Start Date Expiration Date V isits Requested Visits Authorized [id number] Closed PCP Requested Referral 10/25/2022 10/25/2023 1 1 Reason Comments Orders AVS 11/04/22 Reason Comments Benefits Investigation Reason Comments Non-Chemotherapy Treatment Start Iron Reason Comments Consult Iron deficiency anem ia Specialty Diagnoses / Procedures Referred By Contac t Referred To Contact Gastroenterology Diagnoses Iron deficiency anemia, unspecified iron deficiency anemia type Iron malabsorption Chronic diarrhea Procedures CONSULT TO GASTROENTEROLOGY OFFICE/OUTPATIENT [facility] 60-74 MINUTES Mushtaq Rehman, DO [address] [facility] [place] [address] Referral ID Status Reason Start Date Expiration Date V isits Requested Visits Authorized [id number] Closed PCP Requested Referral 11/04/2022 11/04/2023 1 1 Reason Onset Date Comments Refill Request 11/29/2022 Reason Comments Follow Up Reason Onset Date Comments Refill Request 12/11/2022 Reason Comments Results CBC and iron Reason Onset Date Comments Refill Request 01/02/2023 Refill Request 01/03/2023 Reason Onset Date Comments Refill Request 03/05/2023 Reason Comments Follow Up Colonoscopy and EGD Reason Comments Refill Request Reason Comments Established Patient Reason Comments Family History Of Cancer Specialty Diagnoses / Procedures Referred By Contac t Referred To Contact Diagnoses Family history of ovarian cancer Procedures CONSULT TO MEDICAL GENETICS - CANCER MEDICAL GENETICS COUNSELING EACH 30 MINUTES Mushtaq Rehman DO [address] [facility] [place] [address] [facility] [address] [place] [address] Referral ID Status Reason Start Date Expiration Date V isits Requested Visits Authorized [id number] Closed PCP Requested Referral Auto-Generated Referral 05/19/2023 05/18/2024 1 1 Reason Onset Date Comments Refill Request 11/21/2023 Reason Comments Established Patient FOR RECORDS PERTAINING TO PATIENTS WHO ARE OR HAVE BEEN ENROLLED IN A CHEMICAL DEPENDENCY/SUBSTANCEABUSE PROGRAM, SOME INFORMATION MAY BE OMITTED. This clinical summary was aggregated from multiple sources. Caution should be exercised in using it in the provision of clinical care. This summary normalizes information from multiple sources, and as a consequence, information in this document may materially change the coding, format and clinical context of patient data. In addition, data may be omitted in some cases. CLINICAL DECISIONS SHOULD BE BASED ON THE PRIMARY CLINICAL RECORDS. [facility]. provides no warranty or guarantee of the accuracy or completeness of information in this document.
== END | disposition home or self-care (01) ==
LOC: SL 19:56
PROVIDERS: PCP Student in an Organized Health Care Education/Training Program; Referring Provider Psychiatry & Neurology Sleep Medicine; Visit Provider Psychiatry & Neurology Sleep Medicine
DX: G47.10 Hypersomnia, unspecified (principal); G47.00 Insomnia, unspecified
CPT/HCPCS: 95810